=== PATIENT | female | born 1965 | race Caucasian/White ===

== ENCOUNTER 2017-07-29 21:04 | Inpatient (IN) | payer OTHER, SELFPAY ==
[2017-07-29 21:54] LABS: #Basophils 0.2 thou/uL (0.0-0.2); #Eosinphils 0.4 thou/uL (0.0-0.7); #Lymphocytes 3.5 thou/uL (1.20-3.40); #Monocytes 0.7 thou/uL (0.11-0.59); #Neutrophils 9.8 thou/uL (1.40-6.50); %Basophils 1.1 % (0.0-1.0); %Eosinophils 2.4 % (0.0-10.0); Hematocrit 36.2 % (36.0-47.0); Mean Platelet Volume 5.8 fL (7.4-10.4); Red Blood Cell (RBC) Count 3.82 mill/uL (4.20-5.40); White Blood Cell (WBC) Count 14.5 thou/uL (4.8-10.8)
[2017-07-29 22:13] LABS: ALT (SGPT) 10 U/L (8-55); AST (SGOT) 13 U/L (5-34); Alkaline Phosphatase 154 U/L (40-150); Anion Gap 15 mmol/L (10-20); BUN (Urea Nitrogen) 5 mg/dL (7.0-18.7); Bilirubin, Total 0.2 mg/dL (0.2-1.2); Calc. Creatinine Clearance 0 mL/min (70-130); Calcium 9.2 mg/dL (7.8-10.44); Carbon Dioxide 20 mmol/L (22-29); Chloride 91 mmol/L (98-107); Estimated GFR-MDRD Greater than 90; Globulin 2.7 g/dL (2.4-3.5); Magnesium 2.1 mg/dL (1.6-2.6)
--- NOTE | 2017-07-29 22:45 | RAD ---
AP PELVIS ONE VIEW: 07/29/17 HISTORY: 51-year-old female with history of fall and pelvic pain. Pedicle screws stabilize the lower lumbar spine. No evidence for acute pelvic fracture. Degenerative changes of both hip joints. IMPRESSION: Bone demineralization without acute fracture. POS: [facility]
--- NOTE | 2017-07-29 22:47 | RAD ---
UPRIGHT PORTABLE CHEST ONE VIEW: 07/29/17 HISTORY: 51-year-old female with history of chest pain following a fall. Heart size is within normal limits. T he lungs are clear of acute process. No confluent pneumonia, overt edema, or pleural effusion. No pne umothorax. IMPRESSION: No acute intrathoracic disease. No pneumothorax or pleural effusion. POS: [facility]
--- NOTE | 2017-07-29 22:49 | CT ---
BRAIN CT WITHOUT IV CONTRAST: 07/29/17 HISTORY: 51-year-old female with history of fall and head injury. COMPARISON: 03/05/17. There is atrophy and chronic white matter ischemic changes. Old stable bilateral encephalomalacic sisi nges involving the right occipital and parietal region and the left parietal regions. No focal mass o r midline shift. No intra or extra-axial hemorrhage. IMPRESSION: Stable atrophy and chronic white matter ischemic changes and old infarct/insult changes stable from . POS: [facility]
[2017-07-29] MEDS ORDERED: Ondansetron ODT 4 MG TAB ONE (23:10)
[2017-07-30] MEDS ORDERED: Labetalol HCl 100 MG/20 ML VIAL ONE (00:18)
[2017-07-30 02:09] VITALS: BMI 24.0
[2017-07-30] MEDS ORDERED: HYDROcodone/Acetaminophen 5/325 mg Tablet PO PRN (02:10)
[2017-07-30] MEDS ORDERED: Ondansetron ODT 4 MG TAB PO PRN (02:10)
[2017-07-30] MEDS ORDERED: Acetaminophen 325 MG TAB PO PRN (02:10)
[2017-07-30] MEDS ORDERED: Nicotine 14 MG PATCH TD SCH (02:10)
[2017-07-30] MEDS ORDERED: HYDROcodone/Acetaminophen 10/325 mg Tablet PO PRN (02:10)
[2017-07-30] MEDS ORDERED: hydrALAZINE 20 MG/ML VIAL SLOW IVP PRN (02:10)
[2017-07-30] MEDS: Sodium Chloride 0.9% 1,000 ML IV SCH ×2 (03:47→05:36)
[2017-07-30] MEDS: Potassium Chloride 20 MEQ TAB PO SCH ×2 (03:48→08:25)
[2017-07-30 05:27] LABS: #Basophils 0.1 thou/uL (0.0-0.2); #Eosinphils 0.4 thou/uL (0.0-0.7); #Lymphocytes 2.5 thou/uL (1.20-3.40); #Monocytes 0.6 thou/uL (0.11-0.59); #Neutrophils 6.8 thou/uL (1.40-6.50); %Eosinophils 3.6 % (0.0-10.0); %Lymphocytes 23.8 % (21.0-51.0); %Monocytes 5.4 % (0.0-10.0); Hematocrit 35.8 % (36.0-47.0); Red Blood Cell (RBC) Count 3.79 mill/uL (4.20-5.40); White Blood Cell (WBC) Count 10.3 thou/uL (4.8-10.8)
[2017-07-30 05:48] LABS: Anion Gap 13 mmol/L (10-20); BUN (Urea Nitrogen) 5 mg/dL (7.0-18.7); Calc. Creatinine Clearance 90 mL/min (70-130); Calcium 9.5 mg/dL (7.8-10.44); Carbon Dioxide 23 mmol/L (22-29); Chloride 94 mmol/L (98-107); Estimated GFR-MDRD Greater than 90; Magnesium 2.1 mg/dL (1.6-2.6)
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
[2017-07-30] MEDS: Amlodipine 5 MG TAB PO SCH (08:26)
[2017-07-30] MEDS: Clopidogrel Bisulfate 75 MG TAB PO SCH (08:26)
[2017-07-30] MEDS: levETIRAcetam 500 MG TAB PO SCH ×2 (08:26→20:58)
[2017-07-30] MEDS: Famotidine 20 MG TAB PO SCH ×2 (08:26→20:58)
[2017-07-30] MEDS: Folic Acid 1 MG TAB PO SCH (08:26)
[2017-07-30] MEDS: Cyanocobalamin (Vitamin B-12) 1,000 MCG TAB PO SCH (08:26)
[2017-07-30] MEDS: Nicotine 14 MG PATCH TD SCH (08:27)
[2017-07-30] MEDS: Zonisamide 100 MG CAP PO SCH (08:32)
[2017-07-30] MEDS ORDERED: OXTELLAR 600 MG PO SCH (09:00)
--- NOTE | 2017-07-30 10:16 | CON ---
DATE OF CONSULTATION: 07/30/2017 NEUROLOGY CONSULTATION CONSULTING PHYSICIAN: Hospitalist Service. IMPRESSION: 1. Seizure disorder with questionable control. 2. Psychiatric issues. PLAN: 1. Ativan 0.5 mg b.i.d. for anxiety. 2. Patient can be discharged home to deal with her psychiatric and neurologic issues now with her pr ary treating physicians. HISTORY OF PRESENT ILLNESS: Ms. Hart is a 51-year-old white female with a reported history of stro ke and seizure disorder. She came in reportedly as a result of a fall at home. She is a very diffic ult historian who runs off on tangents about her living situation. She reports that the seizures usu ally do not cause her any arm. She has someone that oversees her medical and financial issues. She has her home medication dispensed. She is having problems with the tenant that lives in her home and reportedly wants something done about it. PAST HISTORY: Hypertension, traumatic brain injury, stroke with right visual field deficits, COPD. MEDICATIONS: Reviewed. ALLERGIES: AMOXIL, ASPIRIN, CODEINE, DEMEROL, PENICILLIN. FAMILY HISTORY: Unremarkable. SOCIAL HISTORY: She smokes 2-3 cigarettes per day. Has no reported drug or alcohol use. REVIEW OF SYSTEMS: No other particular complaints. PHYSICAL EXAMINATION: GENERAL: She appears well-nourished, in no distress. VITAL SIGNS: Blood pressure was 197/88 and temperature was 98. HEENT: Unremarkable. EXTREMITIES: No cyanosis. NEUROLOGIC: She was alert and cooperative. Her speech is fluent and clear. Cranial nerve exam show ed subjective right visual field deficit. Motor exam showed symmetric strength without fix or drift. She had some tremor on postural extension of the hands. Sensation was intact to light touch. Gait was not tested. IMAGING DATA: CT of the brain showed evidence of old ischemic injury in the parietooccipital region bilaterally. No acute changes were noted. LABORATORY STUDIES: CBC showed white blood cell count of 14.5, hemoglobin of 12.6. Laboratory studi es showed sodium of 123, potassium 2.6. Toxicology screen showed Dilantin level of 15.5. ASSESSMENT AND PLAN: This is a 51-year-old woman with a past history of stroke, seizures and apparen t psychiatric issues. Her sodium was a bit low, which is I suspect is secondary to her oxcarbazepine . I would leave this to be dealt with by her primary neurologist. I do not see any particular acute neurologic issues.
[2017-07-30] MEDS ORDERED: Sodium Chloride 0.9% 1,000 ML IV SCH (10:30)
[2017-07-30 12:16] LABS: Anion Gap 13 mmol/L (10-20); BUN (Urea Nitrogen) 4 mg/dL (7.0-18.7); Calc. Creatinine Clearance 79 mL/min (70-130); Calcium 9.4 mg/dL (7.8-10.44); Carbon Dioxide 22 mmol/L (22-29); Chloride 102 mmol/L (98-107); Estimated GFR-MDRD 83
[2017-07-30] MEDS ORDERED: cloNIDine 0.1 MG TAB PO PRN (14:59)
--- NOTE | 2017-07-30 19:37 | PDOC.EVN ---
Event Note - Event Note Event Note: Patient seen and examined. No new complaints. No overnight events. Mentation improving. IMPRESSION: 1. Hyponatremia causing seizure/Metabolic Encephalopathy. 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 Seizure due to # 1 with probable med noncompliance 3. Hypokalemia 4. Anxiety/Depression/Bipolar disorder 5. HTN 6. h/o CVA PLAN: * Consult [facility] * DC IVF * AM labs * Neuro input appreciated * Cont home meds * Fluid rest 2 lit/day
[2017-07-30] MEDS ORDERED: Lorazepam 2 MG/ML VIAL SLOW IVP SCH (20:15)
[2017-07-30] MEDS: risperiDONE 1 MG TAB PO SCH (20:58)
[2017-07-30] MEDS ORDERED: clonazePAM 1 MG TAB PO SCH ×2 (21:00→21:30)
[2017-07-30] MEDS: clonazePAM 1 MG TAB PO SCH (21:28)
[2017-07-31 05:54] LABS: Anion Gap 11 mmol/L (10-20); BUN (Urea Nitrogen) 6 mg/dL (7.0-18.7); Calc. Creatinine Clearance 81 mL/min (70-130); Calcium 9.4 mg/dL (7.8-10.44); Carbon Dioxide 22 mmol/L (22-29); Chloride 102 mmol/L (98-107); Estimated GFR-MDRD 85; Magnesium 2.4 mg/dL (1.6-2.6); Phosphorus 3.9 mg/dL (2.3-4.7)
--- NOTE | 2017-07-31 09:06 | DIS ---
DISCHARGE DISPOSITION: Home. FOLLOWUP: Follow up with primary care physician, Dr. Martines in 1 week. Follow up with psychiatrist miguel ROTHMAN as scheduled. INPATIENT CONSULTANTS: [facility] of [facility]. The patient was seen and examined on the day of discharge. Denies any new complaints, requesting to get discharged. ALLERGIES: The patient is allergic to ASPIRIN, DEMEROL, PENICILLIN AND CODEINE. BRIEF HOSPITAL COURSE: The patient is a 51-year-old female with seizure disorder, anxiety, depressio n and bipolar disorder who presented to the hospital with recurrent seizures causing fall. No signif icant injuries were reported. She normally follows with Dr. Ortiz at [facility] for seizur es. Please refer to the history and physical dated 07/30/[address] Greenwood, for further details. The patient was admitted to the Stroke Unit with the diagnosis of seizure, probably precipitated by m edication noncompliance as well as electrolyte imbalance. Her sodium on admission was 123 with a pot assium of 2.6. She showed good improvement with IV fluids. Her sodium on the day of discharge is 13 1. Exact etiology of hyponatremia appears to be unclear. Urine osmolarity was 90 with TSH 3.19 with normal cortisol level. Her serum osmolality level was 251. Possibilities include primary polydipsi a versus dehydration. Potassium has been normalized. The patient was seen by Neurology, Dr. Crain , who recommended continuing current antiepileptic drugs. Her sodium on the day of discharge is 131 with potassium 4.4. Magnesium is also normal. She appears stable for discharge. Please note that patient was unable to get oxcarbazepine extended release due to out of formulary at our Pharmacy. She was advised to take the medicine at home. FINAL DIAGNOSES: 1. Recurrent seizures, probably precipitated by electrolyte imbalance. The patient did not have any seizure episode during this hospitalization. 2. Metabolic encephalopathy, resolved. 3. History of seizure disorder. 4. Hyponatremia, corrected. 5. Hypokalemia, corrected. 6. Anxiety, depression, bipolar disorder. 7. Hypertension. 8. History of cerebrovascular accident. DISCHARGE MEDICATIONS: Same as admission medications: Amlodipine 5 mg daily, cetirizine 10 mg daily , Klonopin 1 mg b.i.d., Plavix 75 mg daily, Keppra 1000 mg daily, oxcarbazepine extended release 1200 mg daily, Dilantin extended release 400 mg at bedtime, pravastatin 80 mg at bedtime, risperidone 1 m g b.i.d., Zonisamide 100 mg daily. Please note that Lasix has been discontinued due to hyponatremia. Plan of care was discussed with the patient in detail. She stated understanding. Total time coordinating the discharge of this patient was 37 minutes.
[2017-07-31] MEDS: Amlodipine 5 MG TAB PO SCH (10:15)
[2017-07-31] MEDS: Cyanocobalamin (Vitamin B-12) 1,000 MCG TAB PO SCH (10:15)
[2017-07-31] MEDS: Famotidine 20 MG TAB PO SCH (10:15)
[2017-07-31] MEDS: Folic Acid 1 MG TAB PO SCH (10:15)
[2017-07-31] MEDS: clonazePAM 1 MG TAB PO SCH (10:17)
[2017-07-31] MEDS: levETIRAcetam 500 MG TAB PO SCH (10:18)
[2017-07-31] MEDS: Clopidogrel Bisulfate 75 MG TAB PO SCH (10:18)
[2017-07-31] MEDS: risperiDONE 1 MG TAB PO SCH (10:19)
[2017-07-31] MEDS: Nicotine 14 MG PATCH TD SCH (11:09)
[2017-07-31] MEDS: Zonisamide 100 MG CAP PO SCH (11:10)
[2017-07-31 12:05] VITALS: BP 135/85; TEMP 97.6
== END 2017-07-31 14:44 | disposition home or self-care (01) | DRG 100 ==
LOC: ERS 21:04 → 2SE 07-30 01:35
PROVIDERS: ADMIT Internal Medicine Infectious Disease; ATTEND Internal Medicine Infectious Disease
DX: G40.909 Epilepsy, unspecified, not intractable, without status epilepticus (principal); G93.41 Metabolic encephalopathy; E87.1 Hypo-osmolality and hyponatremia; I69.354 Hemiplegia and hemiparesis following cerebral infarction affecting left non-dominant side; E87.6 Hypokalemia; F41.9 Anxiety disorder, unspecified; F32.9 Major depressive disorder, single episode, unspecified; I10 Essential (primary) hypertension; F17.210 Nicotine dependence, cigarettes, uncomplicated; J44.9 Chronic obstructive pulmonary disease, unspecified; Z91.14 Patient's other noncompliance with medication regimen; T42.1X5A Adverse effect of iminostilbenes, initial encounter; F31.9 Bipolar disorder, unspecified
CPT/HCPCS: 36415; 70450; 71010; 72170; 80048; 80053; 80185; 82533; 83735; 83930; 83935; 84100; 84443; 85025; 96374; J2060; Q0162

== ENCOUNTER 2017-09-06 23:32 | Emergency (ER) | payer SELFPAY ==
[2017-09-07 00:55] LABS: #Basophils 0.1 thou/uL (0.0-0.2); #Eosinphils 0.1 thou/uL (0.0-0.7); #Lymphocytes 2.1 thou/uL (1.20-3.40); #Monocytes 0.6 thou/uL (0.11-0.59); #Neutrophils 10.9 thou/uL (1.40-6.50); %Basophils 0.8 % (0.0-1.0); %Eosinophils 0.9 % (0.0-10.0); %Lymphocytes 15.2 % (21.0-51.0); %Monocytes 4.4 % (0.0-10.0); %Neutrophils 78.7 % (42.0-75.0); Hemoglobin 12.2 g/dL (12.0-16.0); Mean Corpuscular HGB CONC 33.6 g/dL (32.0-36.0); Mean Corpuscular Hemoglobin 32.4 pg (27.0-31.0); Mean Corpuscular Volume 96.5 fl (81.0-99.0); Mean Platelet Volume 6.7 fL (7.4-10.4); Platelet Count 170 thou/uL (130-400); Red Blood Cell (RBC) Count 3.78 mill/uL (4.20-5.40); White Blood Cell (WBC) Count 13.9 thou/uL (4.8-10.8)
[2017-09-07 01:09] LABS: BHCG - Serum Negative (NEGATIVE); Pregs Control Background? CLEAR/WHITE (CLR/WHITE); Pregs Control Bar Appear? YES (CONTROL BAR)
[2017-09-07 01:17] LABS: ALT (SGPT) 9 U/L (8-55); AST (SGOT) 13 U/L (5-34); Alkaline Phosphatase 146 U/L (40-150); Anion Gap 15 mmol/L (10-20); BUN (Urea Nitrogen) 5 mg/dL (7.0-18.7); Bilirubin, Total 0.2 mg/dL (0.2-1.2); Calc. Creatinine Clearance 0 mL/min (70-130); Calcium 8.9 mg/dL (7.8-10.44); Carbon Dioxide 24 mmol/L (22-29); Chloride 92 mmol/L (98-107); Estimated GFR-MDRD Greater than 90; Globulin 2.9 g/dL (2.4-3.5); Glucose 121 mg/dL (70-105); Potassium 3.6 mmol/L (3.5-5.1); Protein, Total 6.9 g/dL (6.0-8.3); Sodium 127 mmol/L (136-145)
[2017-09-07 01:22] LABS: CKMB 2.2 ng/mL (0-6.6); Troponin I Less than 0.010 ng/mL (< 0.028)
[2017-09-07] MEDS ORDERED: Ondansetron HCl/PF 4 MG/2 ML Vial ONE (01:58)
[2017-09-07] MEDS ORDERED: Ondansetron ODT 4 MG TAB ONE (02:13)
[2017-09-07 03:10] LABS: Pregnancy Test - Urine (BHCG) Negative (Negative); Pregu Control Background? CLEAR/WHITE (CLR/WHITE); Pregu Control Bar Appear? YES (CONTROL BAR)
[2017-09-07 03:15] LABS: Bacteria/HPF 1+ HPF (None Seen); Bilirubin Negative (Negative); Blood, Urine Negative (Negative); Clarity CLEAR (Clear); Glucose, Urine (Dipstick) Negative (Negative); Hyaline Casts/LPF 0-3 HYALINE CAST LPF (0-3 Hyaline); Leukocyte Small (Negative); Nitrite Negative (Negative); Pathc Cast-AUWi Flag 0.13 (0-2.49); Protein, Urine (Dipstick) Negative (Neg-Trace); RBC/HPF 0-3 HPF (0-3); Specific Gravity, Urine 1.007 (1.002-1.036); Squamous Epithelial 0-3 HPF (0-3); Urobilinogen 0.2 mg/dL (0.2-1.0); WBC/HPF 0-3 HPF (0-3); pH, Urine 7.5 (5.0-9.0)
[2017-09-07 03:17] LABS: Specific Gravity 1.007 (1.002-1.036)
[2017-09-07] MEDS ORDERED: ALPRAZolam 0.25 MG TAB PO SCH (04:00)
[2017-09-07] MEDS ORDERED: ALPRAZolam 0.25 MG TAB ONE (04:01)
--- NOTE | 2017-09-09 13:48 | EKG ---
Test Reason : DIZZINESS Blood Pressure : / mmHG Vent. Rate : 082 BPM Atrial Rate : 082 BPM P-R Int : 150 ms QRS Dur : 090 ms QT Int : 376 ms P-R-T Axes : 056 033 059 degrees QTc Int : 439 ms Normal sinus rhythm Possible Left atrial enlargement Nonspecific ST and T wave abnormality Abnormal ECG Confirmed by TODD TSE ([id number]), editor department JOSSELYN ACUNA ([id number]) on 09/09/2017 1:47:47 PM Referred By: VIDAL COLON Confirmed By:TODD TSE
== END 2017-09-07 04:22 | disposition home or self-care (01) ==
LOC: ERS 23:32
DX: F41.9 Anxiety disorder, unspecified (principal); J44.9 Chronic obstructive pulmonary disease, unspecified; G89.29 Other chronic pain; I10 Essential (primary) hypertension; Z86.73 Personal history of transient ischemic attack (TIA), and cerebral infarction without residual deficits; F32.9 Major depressive disorder, single episode, unspecified; F17.210 Nicotine dependence, cigarettes, uncomplicated; Z87.01 Personal history of pneumonia (recurrent); Z79.899 Other long term (current) drug therapy
CPT/HCPCS: 36415; 80053; 81003; 81015; 81025; 82553; 83880; 84484; 84703; 85025; 87086; 93005; J2405; Q0162

== ENCOUNTER 2017-09-09 05:22 | Emergency (ER) | payer SELFPAY ==
[2017-09-09 06:19] LABS: #Basophils 0.1 thou/uL (0.0-0.2); #Eosinphils 0.4 thou/uL (0.0-0.7); #Lymphocytes 3.5 thou/uL (1.20-3.40); #Monocytes 0.6 thou/uL (0.11-0.59); #Neutrophils 4.8 thou/uL (1.40-6.50); %Basophils 1.3 % (0.0-1.0); %Monocytes 5.9 % (0.0-10.0); %Neutrophils 51.8 % (42.0-75.0); Hemoglobin 12.9 g/dL (12.0-16.0); Mean Corpuscular HGB CONC 33.8 g/dL (32.0-36.0); Mean Corpuscular Hemoglobin 32.8 pg (27.0-31.0); Mean Corpuscular Volume 97.2 fl (81.0-99.0); Mean Platelet Volume 6.1 fL (7.4-10.4); Platelet Count 188 thou/uL (130-400); RBC Distribution Width 13.2 % (11.5-14.5); Red Blood Cell (RBC) Count 3.93 mill/uL (4.20-5.40); White Blood Cell (WBC) Count 9.3 thou/uL (4.8-10.8)
[2017-09-09 06:42] LABS: ALT (SGPT) 15 U/L (8-55); AST (SGOT) 15 U/L (5-34); Alkaline Phosphatase 159 U/L (40-150); Anion Gap 12 mmol/L (10-20); BUN (Urea Nitrogen) 9 mg/dL (7.0-18.7); Bilirubin, Total 0.2 mg/dL (0.2-1.2); Calc. Creatinine Clearance 0 mL/min (70-130); Calcium 8.8 mg/dL (7.8-10.44); Carbon Dioxide 23 mmol/L (22-29); Chloride 98 mmol/L (98-107); Estimated GFR-MDRD 87; Globulin 2.7 g/dL (2.4-3.5); Glucose 119 mg/dL (70-105); Potassium 3.7 mmol/L (3.5-5.1); Protein, Total 6.7 g/dL (6.0-8.3); Sodium 129 mmol/L (136-145)
[2017-09-09 07:15] LABS: Bilirubin Negative (Negative); Blood, Urine Negative (Negative); Clarity CLEAR (Clear); Glucose, Urine (Dipstick) Negative (Negative); Leukocyte Negative (Negative); Nitrite Negative (Negative); Protein, Urine (Dipstick) Negative (Neg-Trace); Specific Gravity, Urine 1.014 (1.002-1.036); Urobilinogen 0.2 mg/dL (0.2-1.0)
[2017-09-09 07:26] LABS: Amphetamine Not Detected (NotDetected); Barbiturates Screen Detected (NotDetected); Benzodiazepine Screen Not Detected (NotDetected); Cocaine Metabolite Screen Not Detected (NotDetected); Medtox Control Line Valid? VALID (VALID); Medtox Reader # READER 1; Methadone Not Detected (NotDetected); Methamphetamine Not Detected (NotDetected); Opiate Screen Not Detected (NotDetected); Oxycodone Screen Not Detected (NotDetected); Phencyclidine (PCP) Not Detected (NotDetected); THC/Cannabinoid Screen Not Detected (NotDetected); Tricyclic Screen Not Detected (NotDetected)
[2017-09-09 09:07] LABS: CKMB 1.3 ng/mL (0-6.6); Troponin I Less than 0.010 ng/mL (< 0.028)
== END 2017-09-09 10:44 | disposition left against medical advice (07) ==
LOC: ERS 05:22
DX: R42 Dizziness and giddiness (principal); G40.909 Epilepsy, unspecified, not intractable, without status epilepticus; J44.9 Chronic obstructive pulmonary disease, unspecified; I10 Essential (primary) hypertension; I69.354 Hemiplegia and hemiparesis following cerebral infarction affecting left non-dominant side; I69.398 Other sequelae of cerebral infarction; F41.9 Anxiety disorder, unspecified; F32.9 Major depressive disorder, single episode, unspecified; F17.210 Nicotine dependence, cigarettes, uncomplicated; Z71.6 Tobacco abuse counseling; W19.XXXA Unspecified fall, initial encounter; Y92.009 Unspecified place in unspecified non-institutional (private) residence as the place of occurrence of the external cause
CPT/HCPCS: 36415; 51701; 80053; 80306; 81003; 82550; 82553; 84484; 85025; 93005; 99406

== ENCOUNTER 2017-09-13 01:10 | Emergency (ER) | payer SELFPAY ==
[2017-09-13 01:47] LABS: #Basophils 0.1 thou/uL (0.0-0.2); #Eosinphils 0.4 thou/uL (0.0-0.7); #Lymphocytes 3.9 thou/uL (1.20-3.40); #Monocytes 0.6 thou/uL (0.11-0.59); #Neutrophils 5.1 thou/uL (1.40-6.50); %Basophils 1.3 % (0.0-1.0); %Eosinophils 3.8 % (0.0-10.0); %Lymphocytes 38.6 % (21.0-51.0); %Monocytes 6.4 % (0.0-10.0); Hemoglobin 12.3 g/dL (12.0-16.0); Mean Corpuscular HGB CONC 34.6 g/dL (32.0-36.0); Mean Corpuscular Hemoglobin 33.6 pg (27.0-31.0); Mean Platelet Volume 6.2 fL (7.4-10.4); Platelet Count 167 thou/uL (130-400); RBC Distribution Width 13.3 % (11.5-14.5); Red Blood Cell (RBC) Count 3.65 mill/uL (4.20-5.40); White Blood Cell (WBC) Count 10.1 thou/uL (4.8-10.8)
[2017-09-13 02:04] LABS: ALT (SGPT) 11 U/L (8-55); AST (SGOT) 10 U/L (5-34); Acetaminophen Less than 6.0 mcg/mL (10.0-30.0); Albumin 3.9 g/dL (3.5-5.0); Alcohol Less than 10 mg/dL (Less than 10); Alkaline Phosphatase 144 U/L (40-150); Anion Gap 12 mmol/L (10-20); BUN (Urea Nitrogen) 5 mg/dL (7.0-18.7); Bilirubin, Total 0.3 mg/dL (0.2-1.2); CK (CPK) 56 U/L (29-168); Calc. Creatinine Clearance 0 mL/min (70-130); Calcium 8.8 mg/dL (7.8-10.44); Carbon Dioxide 24 mmol/L (22-29); Chloride 98 mmol/L (98-107); Estimated GFR-MDRD Greater than 90; Globulin 2.4 g/dL (2.4-3.5); Glucose 112 mg/dL (70-105); Potassium 3.2 mmol/L (3.5-5.1); Protein, Total 6.3 g/dL (6.0-8.3); Salicylate Less than 8.0 mg/dL (15.0-30.0); Sodium 131 mmol/L (136-145)
[2017-09-13 02:08] LABS: CKMB 1.4 ng/mL (0-6.6); Troponin I Less than 0.010 ng/mL (< 0.028)
[2017-09-13] MEDS ORDERED: Potassium Chloride 20 MEQ TAB ONE (02:26)
== END 2017-09-13 04:00 | disposition home or self-care (01) ==
LOC: ERS 01:10
DX: R41.82 Altered mental status, unspecified (principal); F41.9 Anxiety disorder, unspecified; F32.9 Major depressive disorder, single episode, unspecified; F17.210 Nicotine dependence, cigarettes, uncomplicated; J44.9 Chronic obstructive pulmonary disease, unspecified; I10 Essential (primary) hypertension; G40.909 Epilepsy, unspecified, not intractable, without status epilepticus; Z86.73 Personal history of transient ischemic attack (TIA), and cerebral infarction without residual deficits; Z79.899 Other long term (current) drug therapy
CPT/HCPCS: 36415; 36416; 80053; 80307; 82140; 82553; 84443; 84484; 85025; 93005

== ENCOUNTER 2017-10-17 09:37 | Inpatient (IN) | payer OTHER, SELFPAY ==
[2017-10-17] MEDS ORDERED: Labetalol HCl 100 MG/20 ML VIAL ONE (09:50)
[2017-10-17 09:54] LABS: Base Excess-Venous -13.4 mmol/L (0 (+/- 2.5)); Bicarbonate (HCO3v) 16.3 mmol/L (1.0-85.0); CO2 Tension (PvCO2) 51.6 mmHg (41.0-51.0); Calcium, Ionized 1.21 mmol/L (1.12-1.32); Hemoglobin - Calc 13.7 g/dL (12.0-18.0); O2 Tension (PvO2) 69.1 mmHg (35.0-45.0); Potassium 3.5 mmol/L (3.4-4.7); T. Carbon Dioxide 17.8 mmol/L (1.0-85.0); pH (Venous) 7.107 (7.35-7.45); vO2 Saturation-calc 85.9 % (94-98)
[2017-10-17 10:05] LABS: #Basophils 0.1 thou/uL (0.0-0.2); #Eosinphils 0.4 thou/uL (0.0-0.7); #Lymphocytes 2.7 thou/uL (1.20-3.40); #Monocytes 0.6 thou/uL (0.11-0.59); #Neutrophils 11.2 thou/uL (1.40-6.50); %Basophils 0.6 % (0.0-1.0); %Eosinophils 2.4 % (0.0-10.0); %Lymphocytes 17.8 % (21.0-51.0); %Monocytes 3.7 % (0.0-10.0); %Neutrophils 75.5 % (42.0-75.0); Mean Corpuscular HGB CONC 32.3 g/dL (32.0-36.0); Mean Corpuscular Hemoglobin 31.5 pg (27.0-31.0); Mean Corpuscular Volume 97.7 fl (81.0-99.0); Mean Platelet Volume 5.6 fL (7.4-10.4); Platelet Count 253 thou/uL (130-400); RBC Distribution Width 13.2 % (11.5-14.5); White Blood Cell (WBC) Count 14.9 thou/uL (4.8-10.8)
[2017-10-17 10:13] LABS: INR-International Normal Ratio 1.1; Prothrombin Time 13.9 SEC (12.0-14.7)
[2017-10-17 10:19] LABS: Bilirubin Negative (Negative); Blood, Urine Small (Negative); Clarity CLOUDY (Clear); Glucose, Urine (Dipstick) 100 mg/dL (Negative); Leukocyte Negative (Negative); Nitrite Negative (Negative); Protein, Urine (Dipstick) 30 mg/dL (Neg-Trace); Specific Gravity, Urine 1.017 (1.002-1.036); Urobilinogen 0.2 mg/dL (0.2-1.0)
[2017-10-17 10:22] LABS: Bacteria/HPF Rare-Few HPF (None Seen); Hyaline Casts/LPF 4-6 HYALINE CAST LPF (0-3 Hyaline); Pathc Cast-AUWi Flag 0.27 (0-2.49); Squamous Epithelial 0-3 HPF (0-3); WBC/HPF 0-3 HPF (0-3)
[2017-10-17 10:31] LABS: Amphetamine Not Detected (NotDetected); Barbiturates Screen Detected (NotDetected); Benzodiazepine Screen Detected (NotDetected); Cocaine Metabolite Screen Not Detected (NotDetected); Medtox Control Line Valid? VALID (VALID); Medtox Reader # READER 1; Methadone Not Detected (NotDetected); Methamphetamine Not Detected (NotDetected); Opiate Screen Not Detected (NotDetected); Oxycodone Screen Not Detected (NotDetected); Phencyclidine (PCP) Not Detected (NotDetected); THC/Cannabinoid Screen Not Detected (NotDetected); Tricyclic Screen Not Detected (NotDetected)
[2017-10-17 10:35] LABS: Crystals/HPF 1+ AMORPH PHOS HPF (Negative); Renal Epithelial None Seen HPF (0-3); Transitional Epithelial NONE SEEN HPF (0-3)
[2017-10-17 10:36] LABS: ALT (SGPT) 50 U/L (8-55); AST (SGOT) 38 U/L (5-34); Acetaminophen Less than 6.0 mcg/mL (10.0-30.0); Albumin 4.3 g/dL (3.5-5.0); Alcohol Less than 10 mg/dL (Less than 10); Alkaline Phosphatase 148 U/L (40-150); Anion Gap 23 mmol/L (10-20); BUN (Urea Nitrogen) 10 mg/dL (7.0-18.7); Bilirubin, Total 0.2 mg/dL (0.2-1.2); CK (CPK) 92 U/L (29-168); Calc. Creatinine Clearance 0 mL/min (70-130); Calcium 9.5 mg/dL (7.8-10.44); Carbon Dioxide 15 mmol/L (22-29); Chloride 99 mmol/L (98-107); Estimated GFR-MDRD 76; Globulin 3.3 g/dL (2.4-3.5); Glucose 213 mg/dL (70-105); Magnesium 2.3 mg/dL (1.6-2.6); Potassium 3.6 mmol/L (3.5-5.1); Protein, Total 7.6 g/dL (6.0-8.3); Salicylate Less than 8.0 mg/dL (15.0-30.0); Sodium 133 mmol/L (136-145)
[2017-10-17 10:40] LABS: CKMB 1.1 ng/mL (0-6.6); Troponin I Less than 0.010 ng/mL (< 0.028)
--- NOTE | 2017-10-17 10:58 | CT ---
CT BRAIN: HISTORY: Altered mental status post subdural drain. FINDINGS: Noncontrast-enhanced CT images of the brain were obtained on 10/17/17. Comparison is made to previous exam from 07/29/17. Images demonstrate an old right occipital stroke again seen. There has been interval left-sided mult iple bertha holes in the left frontal and parietal regions. The chronic subdural hematoma has been par tially drained. Previous presurgical CT not available at this institution which clearly shows a left -sided subdural hematoma as on the previous CT from 07/29/17 this subdural collection was not present . There is mild left to right midline shift measuring approximately 4.4 mm. No acute left subdural hemorrhage is seen. Old area of left parietooccipital stroke is also seen unchanged since the previous exam. IMPRESSION: Partial drainage of the left subdural hematoma with continued mild drub-ao-inurz shift. POS: [facility]
--- NOTE | 2017-10-17 11:05 | RAD ---
CHEST 1 VIEW: History Seizure. COMPARISON: 07/29/17. FINDINGS: The cardiac silhouette is magnified and enlarged. Pulmonary vasculature is upper limits of normal. Mediastinum is midline. There is no lobar consolidation or evidence of pneumothorax. Cardiac monito r leads overlie the chest. Old left clavicular fracture is apparent. IMPRESSION: Cardiomegaly. Borderline pulmonary vascular congestion. POS: [facility]
[2017-10-17] MEDS ORDERED: Lorazepam 2 MG/ML VIAL ONE ×2 (11:31→11:43)
[2017-10-17] MEDS ORDERED: levETIRAcetam 500 MG/100 ML PREMIX BAG ONE ×2 (11:32→11:34)
[2017-10-17] MEDS ORDERED: FOSPHENYTOIN SODIUM IVPB SCH (12:00)
[2017-10-17] MEDS ORDERED: SODIUM CHLORIDE 0.9% IVPB SCH (12:00)
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
[2017-10-17 13:26] LABS: Lactic Acid 1.1 mmol/L (0.5-2.2)
[2017-10-17] MEDS ORDERED: Acetaminophen 650 MG Suppository ONE (14:00)
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
[2017-10-17] MEDS ORDERED: Sodium Chloride 0.9% 1,000 ML IV SCH ×2 (18:30→19:07)
[2017-10-17] MEDS ORDERED: Insulin Regular 300 UNITS/3 ML VIAL SC PRN (19:07)
[2017-10-17] MEDS ORDERED: Acetaminophen 650 MG Suppository PR PRN (19:07)
[2017-10-17] MEDS ORDERED: Ondansetron HCl/PF 4 MG/2 ML Vial IVP PRN (19:07)
[2017-10-17] MEDS ORDERED: CCU Electrolyte Replacement 1 EACH IVPB SCH (19:07)
[2017-10-17] MEDS ORDERED: Lacri-Lube Opth Oint 3.5 GM TUBE EA EYE PRN (19:07)
[2017-10-17] MEDS ORDERED: CCU ELECTROLYTE REPLACEMENT PROTOCOL FS PRN (19:35)
[2017-10-17] MEDS ORDERED: Potassium Phosphate 9 MMOL in Sodium Chloride 0.9% 100 ML IVPB PRN (19:35)
[2017-10-17] MEDS ORDERED: Potassium Chloride 40 MEQ in Premix Bag 1 BAG IVPB PRN (19:35)
[2017-10-17] MEDS ORDERED: Potassium Chloride 20 MEQ TAB PO PRN (19:35)
[2017-10-17] MEDS ORDERED: Potassium Phosphate 15 MMOL in Sodium Chloride 0.9% 250 ML 250 ML IV PRN (19:35)
[2017-10-17] MEDS ORDERED: Magnesium Oxide 400 MG TAB PO PRN ×2 (19:35)
[2017-10-17] MEDS ORDERED: Potassium Chloride 40 MEQ in Sodium Chloride 0.9% 250 ML 250 ML IVPB PRN (19:35)
[2017-10-17] MEDS ORDERED: Potassium Phosphate 12 MMOL in Sodium Chloride 0.9% 250 ML 250 ML IV PRN (19:35)
[2017-10-17] MEDS ORDERED: Magnesium 2 GM/NS 0.9% 100 ML 2 GM in Premix Bag 1 BAG IVPB PRN (19:35)
[2017-10-17] MEDS: Cefepime 2 GM in Sodium Chloride 0.9% 100 ML IVPB SCH (20:03)
[2017-10-17] MEDS: Sodium Chloride 0.9% 1,000 ML IV SCH (20:04)
[2017-10-17] MEDS ORDERED: Fosphenytoin Sodium 100 MG in Sodium Chloride 0.9% 50 ML IVPB SCH (21:00)
[2017-10-17] MEDS ORDERED: Famotidine/PF 20 mg/2ml Vial SLOW IVP SCH (21:00)
[2017-10-17] MEDS ORDERED: levETIRAcetam 1,250 MG in Sodium Chloride 0.9% 100 ML IVPB SCH (21:00)
[2017-10-17] MEDS ORDERED: levETIRAcetam 500 MG TAB PO SCH (21:00)
[2017-10-17] MEDS ORDERED: Famotidine 40 MG/4 ML VIAL SLOW IVP SCH (21:45)
[2017-10-17] MEDS: Vancomycin HCl 1.5 GM in Sodium Chloride 0.9% 250 ML 300 ML IVPB SCH (21:46)
--- NOTE | 2017-10-18 01:33 | CON ---
DATE OF CONSULTATION: 10/17/2017 REFERRING PROVIDER: Dr. Crystal Mccray. REASON FOR CONSULTATION: Seizure. HISTORY OF PRESENT ILLNESS: Ms. Hart is a 51-year-old female who has been consulted for evaluation of seizure. History is obtained from the patient's dictated H and P note as the patient i s unable to provide and there are no family member present at bedside. Apparently, the patient has h istory of stroke and seizure and had multiple admissions to the [facility]. She apparently had a subdural hematoma about 6 days ago for which she was admitted to [facility] she had a CRIMINAL LEGAL ASSISTANT shunt placement. She was discharged home on last night from the hospital. She was no rmal at that time. Grandmother told the admitting physician that she may have had [address] home from hospital. She was then found on the ground seizing this morning by her roommate. The patient had 5 seizures while in the ER. She was given Ativan and Versed in the ER and since then sh leonid has been very lethargic and drowsy. PAST MEDICAL HISTORY: Could not be obtained. PAST SURGICAL HISTORY: Could not be obtained. SOCIAL HISTORY: Could not be obtained. FAMILY HISTORY: Could not be obtained. CURRENT MEDICATIONS: Please review MAR. ALLERGIES: Include ASPIRIN, MEPERIDINE, AMOXICILLIN, PENICILLIN, and CODEINE. REVIEW OF SYSTEMS: Unable to perform. PHYSICAL EXAMINATION: VITAL SIGNS: Blood pressure of 164/69, pulse of 81, temperature of 98.5, respirations of 14, O2 sats of 97% on room air. GENERAL: Drowsy appearing female, in no apparent distress. RESPIRATORY: Clear to auscultation bilaterally. CARDIOVASCULAR: Regular rate and rhythm. NEUROLOGIC: Mental status: The patient is drowsy appearing. She does open her eyes to verbal stimu li; however, does not follow any commands. She is able to stare me; however, does not converse or fo llow any commands. Speech and language: Nonconversant. Cranial nerves: Pupils are 3 mm and reacti ve. Visual dixon are full to threat. Face appears symmetric. Motor exam showed increased tone of both upper and lower extremities, more so on the right than the left. She is able to withdraw to nox ious stimuli in both upper and lower extremities. Deep tendon reflexes, very brisk reflexes in both upper and lower extremities. Coordination: Gait and Romberg could not be tested. LABORATORY DATA: Reviewed, which included CBC, CMP, urinalysis, urine drug screen, which is signific ant for WBC of 14.9. Sodium of 133, glucose of 213, lactic acid of 9.8, AST of 38, otherwise unremar kable. IMAGING STUDIES: CT head without contrast was reviewed, which showed partial drainage of the left kirk bdural hematoma with continued mild left to right shift. There is also encephalomalacia involving th e right DEPENDENCY CASE MANAGER distribution as well as the left DEPENDENCY CASE MANAGER. IMPRESSION: 1. Status epilepticus. 2. Subdural hematoma. 3. Prior right posterior cerebral artery distribution ischemic infarct. Ms. Hart is a pleasant 51-year-old female, presented with the recurrent multiple seizures in the [facility] epileptic. Currently, she is drowsy appearing from medications. At this time, I would recomm end increasing her Keppra to 1500 mg b.i.d. If she has another seizure, I may add Dilantin 100 mg t. i.d. for seizures, continue close monitoring for neurological changes. I would avoid performing lumb ar puncture as she does have subdural hematoma with left to right midline shift. Thank you for consultation.
[2017-10-18] MEDS: Sodium Chloride 0.9% 1,000 ML IV SCH ×2 (01:59→20:58)
[2017-10-18] MEDS: Cefepime 2 GM in Sodium Chloride 0.9% 100 ML IVPB SCH ×2 (04:31→12:30)
[2017-10-18 05:10] LABS: Hemoglobin 10.3 g/dL (12.0-16.0); Mean Corpuscular HGB CONC 33.8 g/dL (32.0-36.0); Mean Corpuscular Hemoglobin 32.2 pg (27.0-31.0); Mean Corpuscular Volume 95.1 fl (81.0-99.0); Mean Platelet Volume 5.9 fL (7.4-10.4); Platelet Count 199 thou/uL (130-400); RBC Distribution Width 13.2 % (11.5-14.5); White Blood Cell (WBC) Count 10.7 thou/uL (4.8-10.8)
[2017-10-18 05:11] LABS: Band 1 % (5-11); Eosinophils 9 % (0-10); Lymphocytes 16 % (21-51); MDiff Complete? YES; Monocytes 7 % (0-10); Neutrophil 67 % (42-75); PLT Morphology Comment Appears Adequate
[2017-10-18 05:24] LABS: ALT (SGPT) 33 U/L (8-55); AST (SGOT) 18 U/L (5-34); Albumin 3.6 g/dL (3.5-5.0); Alkaline Phosphatase 116 U/L (40-150); Anion Gap 11 mmol/L (10-20); BUN (Urea Nitrogen) 5 mg/dL (7.0-18.7); Bilirubin, Total 0.3 mg/dL (0.2-1.2); Calc. Creatinine Clearance 96 mL/min (70-130); Calcium 8.9 mg/dL (7.8-10.44); Carbon Dioxide 22 mmol/L (22-29); Chloride 104 mmol/L (98-107); Estimated GFR-MDRD Greater than 90; Globulin 2.6 g/dL (2.4-3.5); Glucose 116 mg/dL (70-105); Magnesium 2.1 mg/dL (1.6-2.6); Potassium 3.4 mmol/L (3.5-5.1); Protein, Total 6.2 g/dL (6.0-8.3); Sodium 134 mmol/L (136-145)
[2017-10-18] MEDS ORDERED: Sodium Chloride 0.9% 1,000 ML IV SCH (06:53)
[2017-10-18] MEDS ORDERED: Potassium Chloride 20 MEQ TAB PO SCH (07:00)
[2017-10-18] MEDS ORDERED: Potassium Chloride 40 MEQ in Premix Bag 1 BAG IVPB SCH (07:00)
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
[2017-10-18] MEDS ORDERED: Potassium Chloride 40 MEQ, Admixture Fee 1 EACH in Sodium Chloride 0.9% 250 ML 250 ML IVPB SCH ×2 (08:30→09:00)
--- NOTE | 2017-10-18 08:43 | PDOC.FM ---
- Subjective Subjective: Patient found sitting in bed. Nursing report no issues overnight, including no fever or seizure activity. Patient unable to provide history. - Objective MAR Reviewed: Yes Vital Signs & Weight: Vital Signs (12 hours) Temp 10/18/17 07:35 98.4 F 10/18/17 04:00 98.3 F 10/18/17 00:00 98.3 F Weight Weight 51.5 kg Most Recent Monitor Data Heart Rate from ECG 83 NIBP 183/94 NIBP BP-Mean 151 Respiration from ECG 16 SpO2 96 I&O: 10/17/17 10/18/17 10/19/17 06:59 06:59 06:59 Intake Total 2034 Balance 2034 Result Diagrams: 10/18/17 04:21 10/18/17 04:21 <Salvatore Harry - Last Filed: 10/18/17 11:34> - Objective Vital Signs & Weight: Vital Signs (12 hours) Temp Pulse BP 10/18/17 09:30 79 199/89 H 10/18/17 07:35 98.4 F 10/18/17 04:00 98.3 F 10/18/17 00:00 98.3 F Weight Weight 51.5 kg Most Recent Monitor Data Heart Rate from ECG 78 NIBP 169/87 NIBP BP-Mean 121 Respiration from ECG 14 SpO2 98 I&O: 10/17/17 10/18/17 10/19/17 06:59 06:59 06:59 Intake Total 2034 260 Balance 2034 260 Result Diagrams: 10/18/17 04:21 10/18/17 04:21 <Jonnathan Gamez - Last Filed: 10/18/17 11:40> Phys Exam - Physical Examination Constitutional: NAD HEENT: moist MMs, sclera anicteric PERRL Neck: no nodes, supple Respiratory: no wheezing, no rales, no rhonchi, clear to auscultation bilateral Cardiovascular: RRR, no significant murmur Gastrointestinal: soft, non-tender Musculoskeletal: no edema Neurological: moves all 4 limbs Can speak clearly but words are inappropriate. Unable to follow command Normal tone, no apparent seizure. Lymphatic: no nodes Deviation from normal: AO x0, affect odd Skin: no rash <Salvatore Harry M - Last Filed: 10/18/17 11:34> Dx/Plan (1) Status epilepticus Code(s): G40.901 - EPILEPSY, UNSP, NOT INTRACTABLE, WITH STATUS EPILEPTICUS Status: Acute Plan: There has been no seizure activity overnight per nursing. Patient is awake, has spontaneous purposeful movement. She is not at her mental baseline based on family report yesterday, who says she can hold a reasonable conversation and take care of herself with assistance Concern she may have non-convulsive seizure, neurology consulted who plan to do EEG. Appreciate specialist recs. Will continue to follow up with them. (2) SIRS (systemic inflammatory response syndrome) Code(s): R65.10 - SIRS OF NON-INFECTIOUS ORIGIN W/O ACUTE ORGAN DYSFUNCTION Status: Acute Plan: This appears to have resolved Dx includes meningitis vs SIRS from status epilepticus No fever overnight, moving neck without stiffness in room, wbc normalized. Will continue abx at this time to cover for meningitis. . (3) Lactic acidosis Code(s): E87.2 - ACIDOSIS Status: Acute Plan: Trended down, two normal lactic acids since the initial elevation. (4) Hypertensive urgency Code(s): I16.0 - HYPERTENSIVE URGENCY Status: Acute Plan: BP is still running from high-normal to elevated Restart home medication of amlodipine. Consider adding small dose of lisinopril with titration. <Salvatore Harry - Last Filed: 10/18/17 11:34> Attending Addendum - Attending Addendum Date/Time: 10/18/17 9708 I personally evaluated the patient and discussed the management with Dr. Harry. I agree with and repeated the History, Examination, Assessment and Plan documented above with any addition or exceptions noted below. Pt with seizure activity just prior to my exam. Just given additional medication. She is gazing upward, not following commands or talking, but moves all extremities and no rhythmic movements A/P: Status epilepticus in setting of recent SDH evacuation, stable post op changes, and history of ETOH abuse -c/f NCSE vs functional -will discuss with neuro, EEG scheduled at 1 pm -thiamin/folate -BZD prn -remain in ICU pending further evaluation <Jonnathan Gamez - Last Filed: 10/18/17 11:40>
[2017-10-18] MEDS ORDERED: FLU VACC QS2017-18 36 mo. & older 0.5 ML SYRINGE IM ONE (09:00)
[2017-10-18] MEDS: levETIRAcetam In NaCl (Iso-Os) 1,500 MG in Premix Bag 1 BAG IVPB SCH ×4 (09:29→20:59)
[2017-10-18] MEDS: Labetalol HCl 100 MG/20 ML VIAL SLOW IVP PRN ×2 (09:30→13:16)
[2017-10-18] MEDS: Famotidine 40 MG/4 ML VIAL SLOW IVP SCH ×2 (09:30→20:59)
[2017-10-18] MEDS: Vancomycin HCl 1.5 GM in Sodium Chloride 0.9% 250 ML 300 ML IVPB SCH ×2 (09:46→20:59)
[2017-10-18] MEDS ORDERED: Ziprasidone 20 MG VIAL IM PRN (14:54)
[2017-10-18] MEDS ORDERED: Sterile Water 10 ML VIAL FS PRN (15:04)
[2017-10-18] MEDS: hydrALAZINE 20 MG/ML VIAL SLOW IVP PRN (15:13)
[2017-10-18] MEDS: Multivitamins, Adult 10 ML, Folic Acid 1 MG, Thiamine HCl 100 MG in Dextrose 5 %-0.45 %... IV SCH ×4 (15:23)
[2017-10-18] MEDS ORDERED: Sterile Water 10 ML VIAL FS SCH (17:30)
[2017-10-18] MEDS ORDERED: OLANZapine 10 MG VIAL IM SCH (17:30)
[2017-10-18] MEDS: Lorazepam 2 MG/ML VIAL SLOW IVP PRN (19:30)
[2017-10-18] MEDS: Cefepime 2 GM, Syringe 2.5 ML in Sodium Chloride 0.9% 10 ML SLOW IVP SCH (20:07)
[2017-10-18] MEDS ORDERED: Enoxaparin Sodium 40 MG/0.4 ML SYRINGE SC SCH (21:00)
[2017-10-19] MEDS: Cefepime 2 GM, Syringe 2.5 ML in Sodium Chloride 0.9% 10 ML SLOW IVP SCH ×3 (04:02→20:10)
[2017-10-19] MEDS: Sodium Chloride 0.9% 1,000 ML IV SCH ×2 (04:06→17:23)
[2017-10-19 04:55] LABS: ALT (SGPT) 32 U/L (8-55); AST (SGOT) 19 U/L (5-34); Alkaline Phosphatase 132 U/L (40-150); Anion Gap 15 mmol/L (10-20); BUN (Urea Nitrogen) 6 mg/dL (7.0-18.7); Bilirubin, Total 0.4 mg/dL (0.2-1.2); Calc. Creatinine Clearance 78 mL/min (70-130); Calcium 9.5 mg/dL (7.8-10.44); Carbon Dioxide 21 mmol/L (22-29); Chloride 106 mmol/L (98-107); Estimated GFR-MDRD 87; Globulin 2.8 g/dL (2.4-3.5); Glucose 107 mg/dL (70-105); Potassium 3.5 mmol/L (3.5-5.1); Protein, Total 6.8 g/dL (6.0-8.3); Sodium 138 mmol/L (136-145)
[2017-10-19 05:03] LABS: Band 2 % (5-11); Eosinophils 5 % (0-10); Hemoglobin 10.9 g/dL (12.0-16.0); Lymphocytes 27 % (21-51); MDiff Complete? YES; Mean Corpuscular HGB CONC 33.8 g/dL (32.0-36.0); Mean Corpuscular Hemoglobin 31.9 pg (27.0-31.0); Mean Corpuscular Volume 94.3 fl (81.0-99.0); Mean Platelet Volume 5.8 fL (7.4-10.4); Monocytes 5 % (0-10); Neutrophil 61 % (42-75); Platelet Count 201 thou/uL (130-400); RBC Distribution Width 13.1 % (11.5-14.5); Red Blood Cell (RBC) Count 3.43 mill/uL (4.20-5.40); White Blood Cell (WBC) Count 11.4 thou/uL (4.8-10.8)
--- NOTE | 2017-10-19 07:24 | PRG ---
DATE OF SERVICE: 10/19/2017 I stopped by Ms. Hart's ICU room this morning. Neurology attempted an EEG yesterday. There was si gnificant motion artifact. It is unclear whether they got an accurate recording. She has not had a generalized tonic clonic seizure overnight. She may have had some faint twitching. When I am seeing her this morning on examination, she opens her eyes. She catches my gaze. She says a few words to me. She is clearly not as alert and interactive as she was at [facility] both before a nd after her bertha hole evacuation of subdural hematoma. Her white blood cell count is down to 11.4. Her sodium is 138. I think Ms. Hart is either having seizures or pseudoseizures. Continuous EEG monitoring will be he lpful to sort that out. Her CT scan done here showed improvement in her subdural hematoma compared t o her preoperative CT scan. Her brain is a propensity to have seizures and surgical intervention wou ld likely have worsened that, unfortunately her primary neurologist did not visit her in the hospital at [facility] and rather wanted an outpatient appointment. We will continue to follow her whil e she is here. She so far does not require any further neurosurgical intervention.
[2017-10-19] MEDS: levETIRAcetam In NaCl (Iso-Os) 1,500 MG in Premix Bag 1 BAG IVPB SCH ×4 (08:31→20:10)
[2017-10-19 09:12] LABS: Vancomycin, Trough 22.3 ug/mL
[2017-10-19] MEDS: Vancomycin HCl 1.5 GM in Sodium Chloride 0.9% 250 ML 300 ML IVPB SCH ×2 (09:13→21:47)
[2017-10-19] MEDS: Labetalol HCl 100 MG/20 ML VIAL SLOW IVP PRN (09:19)
[2017-10-19] MEDS: Famotidine 40 MG/4 ML VIAL SLOW IVP SCH ×2 (10:01→20:10)
--- NOTE | 2017-10-19 10:28 | PDOC.FM ---
- Subjective Subjective: Overnight, patient had possible seizure like activity described as "tongue twisting"> It resolved after ativan was given. There was no other overnight event though nursing state patient most of time doesn't talk but occasionally has purposeful response such as as telling them to stop when taking her temperature and while doing physical exam. - Objective MAR Reviewed: Yes Vital Signs & Weight: Vital Signs (12 hours) Temp Pulse BP 10/19/17 09:19 80 181/106 H 10/19/17 08:00 98.2 F 10/19/17 04:00 98.8 F 10/19/17 00:00 98.9 F Weight Weight 52.1 kg Most Recent Monitor Data Heart Rate from ECG 74 NIBP 169/72 NIBP BP-Mean 99 Respiration from ECG 13 SpO2 100 I&O: 10/18/17 10/19/17 10/20/17 06:59 06:59 06:59 Intake Total 2034 2840 Output Total 1 Balance 2034 2840 -1 Result Diagrams: 10/19/17 03:55 10/19/17 03:55 <Salvatore Harry - Last Filed: 10/19/17 10:27> - Objective Vital Signs & Weight: Vital Signs (12 hours) Temp Pulse Resp BP Pulse Ox 10/19/17 09:19 80 181/106 H 10/19/17 08:00 98.2 F 80 14 100 10/19/17 04:00 98.8 F 10/19/17 00:00 98.9 F Weight Weight 52.1 kg Most Recent Monitor Data Heart Rate from ECG 80 NIBP 164/82 NIBP BP-Mean 95 Respiration from ECG 14 SpO2 100 I&O: 10/18/17 10/19/17 10/20/17 06:59 06:59 06:59 Intake Total 2034 2840 Output Total 1 Balance 2034 2840 -1 Result Diagrams: 10/19/17 03:55 10/19/17 03:55 <Jonnathan Gamez - Last Filed: 10/19/17 11:37> Phys Exam - Physical Examination Constitutional: NAD HEENT: moist MMs Neck: supple Respiratory: no wheezing Cardiovascular: RRR, no significant murmur Gastrointestinal: soft, non-tender Musculoskeletal: no edema Neurological: moves all 4 limbs Moves all limb purposefully, but not to command. Eye open spont, She has goal directed speech when she is disturbed Lymphatic: no nodes Deviation from normal: AO x0, but possibly because she doesn't desire to speak Skin: no rash <Salvatore Harry Seth - Last Filed: 10/19/17 10:27> Dx/Plan (1) Status epilepticus Code(s): G40.901 - EPILEPSY, UNSP, NOT INTRACTABLE, WITH STATUS EPILEPTICUS Status: Acute Plan: EEG was poor quality due to patient movement. Neurology said they did not see any seizure like activity. She may possibly have ongoing seizure. Neurosurgery and Critical Care feels that pseudoseizure should be considered as well. (2) SIRS (systemic inflammatory response syndrome) Code(s): R65.10 - SIRS OF NON-INFECTIOUS ORIGIN W/O ACUTE ORGAN DYSFUNCTION Status: Acute Plan: This appears to have resolved. May possibly from seizure activty Will continue abx at this time to cover for meningitis. . (3) Lactic acidosis Code(s): E87.2 - ACIDOSIS Status: Acute Plan: Trended down, two normal lactic acids since the initial elevation. (4) Hypertensive urgency Code(s): I16.0 - HYPERTENSIVE URGENCY Status: Acute Plan: BP is still running from high-normal to elevated Currently on hydralazine and labatelol prn as patient is unable to swallow per speech recs. <KamrynSalvatore Seth - Last Filed: 10/19/17 10:27> Attending Addendum - Attending Addendum Date/Time: 10/19/17 1136 I personally evaluated the patient and discussed the management with Dr. Harry. I agree with and repeated the History, Examination, Assessment and Plan documented above with any addition or exceptions noted below. [id number]-[id number] at bedside. Pt still not communicative but makes eye contact and intermittent follows commands. No obvious neuro deficits as MAEW. Agree with differential listed in other notes. Neuro, cc/p, and neurosx following. Continue antiepileptics. Low suspicion for infection. Ok to transfer to floor with sitter. <Jonnathan Gamez - Last Filed: 10/19/17 11:37>
[2017-10-19] MEDS ORDERED: Potassium Chloride 40 MEQ in Sodium Chloride 0.9% 250 ML 250 ML IVPB SCH (11:00)
--- NOTE | 2017-10-19 13:01 | PRG ---
DATE OF SERVICE: 10/19/2017 SERVICE: Pulmonary Medicine. INTERVAL HISTORY: The patient is doing fine from a respiratory standpoint. She is protecting her ai rway. She has no complaints of fevers, chills, nausea or vomiting. She is still a little bit and ap propriate. She does not answer correctly with any questions. Her vocabulary; however, is making mor e sense. She just continues to have some degree of word salad. She had an EEG yesterday which demon strated no significant evidence of ongoing seizure activity despite her quirkiness. PHYSICAL EXAMINATION: VITAL SIGNS: Afebrile, pulse 80, blood pressure 169/72, respirations 13, saturation 100% on room air . GENERAL: The patient is awake, alert, in no apparent distress. LUNGS: Decent air entry. There is no prolonged expiratory phase. There is no wheezing, rhonchi, or crackles present. HEART: Normal rate and regular. ABDOMEN: Soft, nontender, nondistended. Bowel sounds are positive. MUSCULOSKELETAL: No cyanosis or clubbing. No pitting in the bilateral lower extremities. NEUROLOGIC: Grossly nonfocal. She is moving all 4 extremities, though she is not really following c ommands. She does not answer appropriately. She clearly has purposeful activity, and is protecting her airway comfortably. LABORATORY DATA: WBC 11.4, hemoglobin 10.9, platelets 201,000. Neutrophil count is normal. INR 1.2 . Basic metabolic profile and liver function studies are essentially unremarkable. Vancomycin troug h is 22.3. Blood cultures x4 negative, urine culture is negative. ASSESSMENT: 1. Status epilepticus, resolved. 2. 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 3. Subdural hematoma. 4. Right PROPELLER ENGINEER distribution ischemic infarct. 5. Polysubstance drug abuse. 6. Hypokalemia, improved. PLAN: We will give her more potassium today. From my perspective, she is stable for transition out of the ICU to the regular stroke unit. She is clearly protecting her airway, but if her neurologic c ondition changes, please give me a phone call.
[2017-10-19] MEDS: Multivitamins, Adult 10 ML, Folic Acid 1 MG, Thiamine HCl 100 MG in Dextrose 5 %-0.45 %... IV SCH ×4 (17:23)
--- NOTE | 2017-10-19 18:43 | PRG ---
DATE OF SERVICE: 10/19/2017 SUBJECTIVE: Ms. Hart is a pleasant 51-year-old female who presented with the status epil epticus. She has a prior history of stroke, seizure disorder and recent bilateral subdural hematoma, status post evacuation. She has not had any seizure over the past 24 hours according to the nurse. She has been nonverbal since being transferred to the stroke unit. She is not following commands. There were episodes of agitation yesterday for which Zyprexa had to be given. PHYSICAL EXAMINATION: VITAL SIGNS: Blood pressure of 178/86, pulse of 80, temperature of 98.2, respirations of 18, O2 sats 98% on room air. GENERAL: Well-developed, well-nourished female resting in bed, in no apparent distress. RESPIRATORY: Clear to auscultation bilaterally. CARDIOVASCULAR: Regular rate and rhythm. NEUROLOGIC: Mental status: The patient is awake, alert, but nonverbal. She does not follow any com mands. She is able to track me around the room. When I call her name, she is able to look toward me . I was only able to get her to say yes on one occasion after multiple attempts to question her. Peña jaquez did not follow any commands throughout the examination. Pupils are 3 mm and reactive. She blinks to threat on both sides. Motor exam showed normal tone and bulk. She was able to hold her arms up a fter I let go for a few seconds before gently putting them back onto the bed. She did respond to nox ious stimuli in both upper and lower extremities. LABORATORY DATA: Reviewed, which included CBC, CMP, which is significant for white cell count of 11. 4, hemoglobin 10.9, hematocrit 32.3, otherwise unremarkable. EEG was reviewed, which is extremely po or quality and it did not show any meaningful data and she was moving around too much. IMPRESSION: 1. Status epilepticus, now improved. 2. Bilateral recent subdural hematoma, status post evacuation. 3. Psychosis. Ms. Hart is a 51-year-old female with a prior history of stroke, seizures, history of psy chosis and recent subdural hematoma associated with the status epilepticus. She has not had any seiz ure since being entered into the hospital. I do not think she is in subclinical status. In my opini on, her ongoing being nonverbal and not following commands is probably part of the psychosis. Contin ue current medical management. Thank you for consultation.
[2017-10-20] MEDS: Sodium Chloride 0.9% 1,000 ML IV SCH ×3 (00:29→20:41)
[2017-10-20] MEDS: Cefepime 2 GM, Syringe 2.5 ML in Sodium Chloride 0.9% 10 ML SLOW IVP SCH (04:37)
[2017-10-20 07:05] LABS: #Basophils 0.1 thou/uL (0.0-0.2); #Eosinphils 0.5 thou/uL (0.0-0.7); #Lymphocytes 2.3 thou/uL (1.20-3.40); #Monocytes 0.7 thou/uL (0.11-0.59); %Basophils 0.9 % (0.0-1.0); %Eosinophils 5.1 % (0.0-10.0); %Monocytes 6.7 % (0.0-10.0); %Neutrophils 65.3 % (42.0-75.0); Hemoglobin 10.9 g/dL (12.0-16.0); Mean Corpuscular HGB CONC 33.2 g/dL (32.0-36.0); Mean Corpuscular Hemoglobin 32.3 pg (27.0-31.0); Mean Corpuscular Volume 97.2 fl (81.0-99.0); Mean Platelet Volume 5.9 fL (7.4-10.4); Platelet Count 198 thou/uL (130-400); RBC Distribution Width 13.2 % (11.5-14.5); Red Blood Cell (RBC) Count 3.38 mill/uL (4.20-5.40); White Blood Cell (WBC) Count 10.7 thou/uL (4.8-10.8)
--- NOTE | 2017-10-20 07:11 | PRG ---
DATE OF SERVICE: 10/20/2017 I am seeing Ms. Hart in her hospital room this morning. She is out of the ICU. She has a sitter a t bedside. When I walked in the room, she looks at me, she gives me a face that would indicate she r ecognizes me, but she blinks and stares in my direction. She does follow me with her eyes around the room and she is purposeful with all 4 extremities. The continued blinking during her visit did not cease, however. When I feel Ms. Hart's skin she is diaphoretic. No fevers are recorded. White blood cell count ye sterday was 11.4 thousand. Sodium yesterday was 138. I am not sure if Ms. Hart is having seizures, pseudoseizures or delirium or encephalopathy from ano ther cause. Her subdural hematoma is much smaller than it was before her operation and she was not b ehaving this way in the postoperative days at the [facility]. I am going to get anothe r white blood cell count. If we have a recorded fever she could have blood cultures and urine cultur es again. Ideally we could get continuous EEG monitoring to sort out whether her episodes are truly epileptic or not. If there is seizure activity coming from the left hemisphere, a repeat operation c ould be considered, but I am not particularly suspicious of that being a problem.
[2017-10-20 07:23] LABS: Anion Gap 13 mmol/L (10-20); BUN (Urea Nitrogen) 5 mg/dL (7.0-18.7); Calc. Creatinine Clearance 80 mL/min (70-130); Calcium 8.9 mg/dL (7.8-10.44); Carbon Dioxide 19 mmol/L (22-29); Chloride 107 mmol/L (98-107); Estimated GFR-MDRD Greater than 90; Glucose 109 mg/dL (70-105); Potassium 3.5 mmol/L (3.5-5.1); Sodium 135 mmol/L (136-145)
[2017-10-20] MEDS: levETIRAcetam In NaCl (Iso-Os) 1,500 MG in Premix Bag 1 BAG IVPB SCH ×4 (08:41→20:39)
[2017-10-20] MEDS: Labetalol HCl 100 MG/20 ML VIAL SLOW IVP PRN ×2 (08:43→11:58)
[2017-10-20] MEDS: Famotidine 40 MG/4 ML VIAL SLOW IVP SCH (09:20)
[2017-10-20] MEDS: Vancomycin HCl 1.5 GM in Sodium Chloride 0.9% 250 ML 300 ML IVPB SCH (09:53)
--- NOTE | 2017-10-20 09:53 | PDOC.FM ---
- Subjective Subjective: Found with step mother and sitter. She is watching tv and smiles in response to some question. She was noted to have a rhythmic movement in right hand but pulled away from nailbed pressure and said ouch. - Objective MAR Reviewed: Yes Vital Signs & Weight: Vital Signs (12 hours) Temp Pulse Resp BP BP Pulse Ox 10/20/17 08:43 97 207/88 H 10/20/17 04:35 99.1 F 88 18 159/82 H 97 10/20/17 00:28 97.6 F 100 20 178/64 H 96 Weight Weight 45.359 kg Most Recent Monitor Data Heart Rate from ECG 81 NIBP 169/78 NIBP BP-Mean 133 Respiration from ECG 13 SpO2 100 I&O: 10/19/17 10/20/17 10/21/17 06:59 06:59 06:59 Intake Total 2840 877 Output Total 3 Balance 2840 874 Result Diagrams: 10/20/17 06:56 10/20/17 06:56 <Salvatore Harry - Last Filed: 10/20/17 09:16> - Objective Vital Signs & Weight: Vital Signs (12 hours) Temp Pulse Resp BP BP Pulse Ox 10/20/17 09:23 82 183/90 H 10/20/17 08:43 97 207/88 H 10/20/17 08:00 98.8 F 82 18 94 L 10/20/17 04:35 99.1 F 88 18 159/82 H 97 10/20/17 00:28 97.6 F 100 20 178/64 H 96 Weight Weight 45.359 kg Most Recent Monitor Data Heart Rate from ECG 81 NIBP 169/78 NIBP BP-Mean 133 Respiration from ECG 13 SpO2 100 I&O: 10/19/17 10/20/17 10/21/17 06:59 06:59 06:59 Intake Total 2840 877 Output Total 3 Balance 2840 874 Result Diagrams: 10/20/17 06:56 10/20/17 06:56 <Jonnathan Gamez - Last Filed: 10/20/17 10:18> Phys Exam - Physical Examination Constitutional: NAD HEENT: moist MMs Neck: no nodes Respiratory: no wheezing, no rales, no rhonchi, clear to auscultation bilateral Cardiovascular: RRR, no significant murmur Gastrointestinal: soft, non-tender, no distention Musculoskeletal: no edema AO x0 Lymphatic: no nodes Deviation from normal: Occasionally smile, responds to threat, but non verbal otherwise Skin: no rash <Salvatore Harry Seth - Last Filed: 10/20/17 09:16> Dx/Plan (1) Status epilepticus Code(s): G40.901 - EPILEPSY, UNSP, NOT INTRACTABLE, WITH STATUS EPILEPTICUS Status: Acute Plan: EEG was poor quality due to patient movement. Another EEG is planned today. Neurology said they did not see any seizure like activity. She may possibly have ongoing seizure. Neurosurgery and Critical Care feels that pseudoseizure should be considered as well. WBC is normal today and she's afrebrile. (2) SIRS (systemic inflammatory response syndrome) Code(s): R65.10 - SIRS OF NON-INFECTIOUS ORIGIN W/O ACUTE ORGAN DYSFUNCTION Status: Acute Plan: This appears to have resolved. May possibly from seizure activty Will continue abx at this time to cover for meningitis. . (3) Lactic acidosis Code(s): E87.2 - ACIDOSIS Status: Acute Plan: Trended down, two normal lactic acids since the initial elevation. (4) Hypertensive urgency Code(s): I16.0 - HYPERTENSIVE URGENCY Status: Acute Plan: BP is still running from high-normal to elevated Currently on hydralazine and labatelol prn as patient is unable to swallow per speech recs. - Plan Plan: Will continue to monitor as patient is more interactive today. Will follow up on specialist recs. Consider psych issues mixed with neurological issues. <Salvatore Harry Seth - Last Filed: 10/20/17 09:16> Attending Addendum - Attending Addendum Date/Time: 10/20/17 1017 I personally evaluated the patient and discussed the management with Dr. Harry. I agree with and repeated the History, Examination, Assessment and Plan documented above with any addition or exceptions noted below. Pt more responsive today. Follows commands for me. D/c antibiotics. Schedule labetalol until cleared by speech. Continue AEDs. Check ammonia in AM. May schedule antipsychotic. <Jonnathan Gamez - Last Filed: 10/20/17 10:18>
[2017-10-20] MEDS: Multivitamins, Adult 10 ML, Folic Acid 1 MG, Thiamine HCl 100 MG in Dextrose 5 %-0.45 %... IV SCH ×4 (16:27)
[2017-10-20] MEDS: Famotidine 20 MG TAB PO SCH (20:39)
[2017-10-21] MEDS: Labetalol HCl 100 MG/20 ML VIAL SLOW IVP PRN ×2 (00:03→04:45)
[2017-10-21] MEDS: Sodium Chloride 0.9% 1,000 ML IV SCH ×3 (01:56→23:59)
[2017-10-21] MEDS: levETIRAcetam In NaCl (Iso-Os) 1,500 MG in Premix Bag 1 BAG IVPB SCH ×4 (07:44→20:50)
[2017-10-21] MEDS: Famotidine 20 MG TAB PO SCH ×2 (07:45→20:53)
--- NOTE | 2017-10-21 08:18 | PDOC.FM ---
- Subjective Subjective: Apparently had overnight seizure, lasting for one 1 minute with full body shaking. She is not as talkative today as when her friend was here yesterday. - Objective MAR Reviewed: Yes Vital Signs & Weight: Vital Signs (12 hours) Temp Pulse Resp BP BP BP Pulse Ox 10/21/17 07:45 91 187/87 H 10/21/17 07:10 100 F H 77 18 195/84 H 97 10/21/17 06:16 184/83 H 10/21/17 04:45 91 187/87 H 10/21/17 04:08 98.6 F 91 20 187/87 H 94 L 10/21/17 03:02 94 L 10/21/17 01:07 185/81 H 10/21/17 00:12 185/87 H 10/21/17 00:03 93 210/81 H 10/20/17 23:49 97.9 F 93 20 199/100 H 97 10/20/17 20:38 98.0 F 95 18 94 L 10/20/17 20:31 98.0 F 95 18 168/79 H 94 L Weight Weight 48.353 kg Most Recent Monitor Data Heart Rate from ECG 81 NIBP 169/78 NIBP BP-Mean 133 Respiration from ECG 13 SpO2 100 I&O: 10/20/17 10/21/17 10/22/17 06:59 06:59 06:59 Intake Total 877 Output Total 3 Balance 874 Result Diagrams: 10/20/17 06:56 10/20/17 06:56 <KamrynSalvatore M - Last Filed: 10/21/17 08:22> - Objective Vital Signs & Weight: Vital Signs (12 hours) Temp Pulse Resp BP BP BP Pulse Ox 10/21/17 11:10 98.6 F 76 18 95 10/21/17 08:30 100 F H 91 18 10/21/17 07:45 91 187/87 H 10/21/17 07:10 100 F H 77 18 195/84 H 97 10/21/17 06:16 184/83 H 10/21/17 04:45 91 187/87 H 10/21/17 04:08 98.6 F 91 20 187/87 H 94 L 10/21/17 03:02 94 L 10/21/17 01:07 185/81 H 10/21/17 00:12 185/87 H 03/17/18 00:03 93 210/81 H Weight Weight 48.353 kg Most Recent Monitor Data Heart Rate from ECG 81 NIBP 169/78 NIBP BP-Mean 133 Respiration from ECG 13 SpO2 100 I&O: 10/20/17 10/21/17 10/22/17 06:59 06:59 06:59 Intake Total 877 Output Total 3 Balance 874 Result Diagrams: 10/20/17 06:56 10/20/17 06:56 <Hong Moffett - Last Filed: 10/21/17 11:54> Phys Exam - Physical Examination Constitutional: NAD HEENT: moist MMs Neck: no nodes, supple Respiratory: no wheezing, clear to auscultation bilateral Cardiovascular: RRR, no significant murmur Gastrointestinal: soft Musculoskeletal: no edema Moves all 4 limb, but not to command. Eye open. Tone normal. No seizsure like activity noted. Deviation from normal: AO x0 Skin: no rash <Ly,Salvatore M - Last Filed: 10/21/17 08:22> Dx/Plan (1) Status epilepticus Code(s): G40.901 - EPILEPSY, UNSP, NOT INTRACTABLE, WITH STATUS EPILEPTICUS Status: Acute Plan: EEG was poor quality due to patient movement. Another EEG is planned today. Neurology said they did not see any seizure like activity. She may possibly have ongoing seizure. Neurosurgery and Critical Care feels that pseudoseizure should be considered as well. Patient cleared by speech for puree. At this point, discuss with neurology and neurosurgery about disposition, med adjustment as well as it may not be adequate. (2) SIRS (systemic inflammatory response syndrome) Code(s): R65.10 - SIRS OF NON-INFECTIOUS ORIGIN W/O ACUTE ORGAN DYSFUNCTION Status: Acute Plan: This appears to have resolved. May possibly from seizure activty Will continue abx at this time to cover for meningitis. . (3) Lactic acidosis Code(s): E87.2 - ACIDOSIS Status: Acute Plan: Trended down, two normal lactic acids since the initial elevation. (4) Hypertensive urgency Code(s): I16.0 - HYPERTENSIVE URGENCY Status: Acute Plan: BP is still running from high-normal to elevated Currently on hydralazine and labatelol prn REstarted amlodipine, consider adding lisinopril <Ly,Salvatore M - Last Filed: 10/21/17 08:22> Attending Addendum - Attending Addendum Date/Time: 10/21/17 1151 I personally evaluated the patient and discussed the management with Dr. Chase I agree with the History, Examination, Assessment and Plan documented above with any addition or exceptions noted below.Patient actively psychotic will need to address Mental Health and possible inpatient placement. Cultures to date negative. Family aware of of concerns and need for mental health follow up will restart prior psychiatric medications. <Hong Moffett - Last Filed: 10/21/17 11:54>
[2017-10-21] MEDS ORDERED: Amlodipine 5 MG TAB PO SCH (09:00)
--- NOTE | 2017-10-21 10:48 | PRG ---
DATE OF SERVICE: 10/21/2017 I saw Mariah Hart in rounds this morning. She is on the stroke unit currently. Her sitter does n ot report any significant events overnight. She had a low-grade fever at 100 degrees Fahrenheit. He r blood pressure has been high and difficult to control. When I see Ms. Hart, she says a few words to me today. She gets a phrase or two out. She continue s to blink while she is talking to me. There are some fine motor movements in the right arm, as I am talking to her, but she is still awake and communicating even during these events. Yesterday's white blood cell count is 10.7. Her sodium yesterday was 135. Ms. Hart has psychiatric diagnoses as well as a seizure disorder. She has a subdural hematoma that was evacuated and the postoperative images showed improvement. I am hesitant to put Ms. Hart through any more surgical intervention unless there is a clear-cut in dication for it. A continuous EEG showing left-sided seizure activity might be such indication, but one was not performed. We will continue to follow Ms. Hart during her hospitalization.
[2017-10-21] MEDS ORDERED: traZODone HCl 50 MG TAB PO PRN (12:46)
[2017-10-21] MEDS: Multivitamins, Adult 10 ML, Folic Acid 1 MG, Thiamine HCl 100 MG in Dextrose 5 %-0.45 %... IV SCH ×4 (17:17)
[2017-10-21] MEDS: Pravastatin Sodium 40 MG TAB PO SCH (20:55)
[2017-10-21] MEDS: risperiDONE 1 MG TAB PO SCH (20:55)
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
[2017-10-21] MEDS ORDERED: Divalproex Sodium 250 MG (DR) TAB PO SCH (21:00)
[2017-10-21] MEDS: Valproate Sodium 500 MG in Sodium Chloride 0.9% 100 ML IVPB SCH (22:29)
[2017-10-22] MEDS: Labetalol HCl 100 MG/20 ML VIAL SLOW IVP PRN (01:36)
[2017-10-22] MEDS: Sodium Chloride 0.9% 1,000 ML IV SCH ×3 (02:06→22:04)
--- NOTE | 2017-10-22 08:16 | PDOC.FM ---
- Subjective Subjective: Patient was seen this morning, with left facial twitching, rhythmic flexion and extension in upper and lower limbs. When nail bed pressure was applied, patient withdrew and said "Ouch!", and then resumed prior behavior. Sitter and nurse were asked if her shaking was what she had prior, and they agreed that it was the same as during her seizure like episode, though on a lesser scale. - Objective MAR Reviewed: Yes Vital Signs & Weight: Vital Signs (12 hours) Temp Pulse Resp BP BP BP Pulse Ox 10/22/17 04:00 98.1 F 89 16 163/67 H 94 L 10/22/17 02:00 160/100 H 10/22/17 01:36 88 219/102 H 10/22/17 01:14 98.2 F 88 20 219/102 H 94 L Weight Weight 47.264 kg Most Recent Monitor Data Heart Rate from ECG 81 NIBP 169/78 NIBP BP-Mean 133 Respiration from ECG 13 SpO2 100 I&O: 10/21/17 10/22/17 10/23/17 06:59 06:59 06:59 Intake Total 1816 Balance 1816 Result Diagrams: 10/20/17 06:56 10/20/17 06:56 <Salvatore Harry M - Last Filed: 10/22/17 11:05> - Objective Vital Signs & Weight: Vital Signs (12 hours) Temp Pulse Resp BP BP Pulse Ox 10/22/17 15:30 87 18 158/79 H 10/22/17 15:15 100.2 F H 95 18 195/95 H 95 10/22/17 12:00 173/90 H 10/22/17 11:15 98.5 F 93 20 99 10/22/17 09:10 89 10/22/17 08:45 99 F 111 H 16 98 10/22/17 08:00 99 F 89 18 98 Weight Weight 47.264 kg Most Recent Monitor Data Heart Rate from ECG 81 NIBP 169/78 NIBP BP-Mean 133 Respiration from ECG 13 SpO2 100 I&O: 10/21/17 10/22/17 10/23/17 06:59 06:59 06:59 Intake Total 1816 480 Balance 1816 480 Result Diagrams: 10/20/17 06:56 10/20/17 06:56 <Hong Moffett - Last Filed: 10/22/17 16:50> Phys Exam - Physical Examination Constitutional: NAD HEENT: moist MMs Respiratory: no wheezing, no rales, no rhonchi Cardiovascular: RRR, no significant murmur Gastrointestinal: soft, no distention, positive bowel sounds Musculoskeletal: no edema See subjective for full Lymphatic: no nodes Deviation from normal: AO x0, speaks but without making sense. Skin: no rash <Salvatore Harry - Last Filed: 10/22/17 11:05> Dx/Plan (1) Status epilepticus Code(s): G40.901 - EPILEPSY, UNSP, NOT INTRACTABLE, WITH STATUS EPILEPTICUS Status: Acute Plan: -Discussed about continuous EEG. This will have to be on an outpatient basis, 7 day EEG monitoring where patient comes in to hospital for scheduled EEG. -At this time, patient continues to have shaking spells, but it is atypical as today she was witnessed withdrawing from pain and saying "ouch" when nailbed pressure applied - Will continue with home medication, and increased dose of keppra. -Discuss with neurosurgery about ending meningitis coverage (2) SIRS (systemic inflammatory response syndrome) Code(s): R65.10 - SIRS OF NON-INFECTIOUS ORIGIN W/O ACUTE ORGAN DYSFUNCTION Status: Acute Plan: This appears to have resolved. May possibly from seizure activty (3) Lactic acidosis Code(s): E87.2 - ACIDOSIS Status: Acute Plan: Trended down, two normal lactic acids since the initial elevation. (4) Hypertensive urgency Code(s): I16.0 - HYPERTENSIVE URGENCY Status: Acute Plan: BP is still running from high-normal to elevated Currently on hydralazine and labatelol prn Restarted amlodipine, started on losartan. <Salvatore Harry M - Last Filed: 10/22/17 11:05> Attending Addendum - Attending Addendum Date/Time: 10/22/17 7530 I personally evaluated the patient and discussed the management with Dr. Chase I agree with the History, Examination, Assessment and Plan documented above with any addition or exceptions noted below.Patient will need formal mental health assessment for placement. 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
[2017-10-22] MEDS: Valproate Sodium 500 MG in Sodium Chloride 0.9% 100 ML IVPB SCH ×2 (08:47→21:15)
[2017-10-22] MEDS ORDERED: Lisinopril 5 MG TAB PO SCH ×2 (09:00)
[2017-10-22] MEDS: Lorazepam 2 MG/ML VIAL SLOW IVP PRN (09:00)
[2017-10-22] MEDS: levETIRAcetam In NaCl (Iso-Os) 1,500 MG in Premix Bag 1 BAG IVPB SCH ×2 (09:04)
[2017-10-22] MEDS: Amlodipine 5 MG TAB PO SCH (09:10)
[2017-10-22] MEDS: Losartan 25 MG TAB PO SCH (09:10)
[2017-10-22] MEDS: risperiDONE 1 MG TAB PO SCH ×2 (09:10→20:24)
[2017-10-22] MEDS: Zonisamide 100 MG CAP PO SCH (09:11)
[2017-10-22] MEDS: Loratadine 10 MG TAB PO SCH (09:11)
[2017-10-22] MEDS: Pravastatin Sodium 40 MG TAB PO SCH ×2 (09:11→20:24)
[2017-10-22] MEDS: Famotidine 20 MG TAB PO SCH ×2 (09:11→20:23)
--- NOTE | 2017-10-22 09:34 | PRG ---
DATE OF SERVICE: 10/22/2017 NEUROSURGERY PROGRESS NOTE SUBJECTIVE: I am seeing Ms. Hart in her hospital room this morning. Her stepmother is at the [facility] and she is concerned. There were no fevers since yesterday morning. Other vital signs show bloo d pressures in the 160s. There was one blood pressure in the 200s recorded which may have been durin g seizure episode. On examination this morning, there is a twitching in the left thigh and left side of the face. Although she is not speaking to me, her eyes catch my gaze and follow me. She does se em to be responding to voice, however. Ms. Hart is a difficult case. She has psychiatric diagnoses. She likely has seizures and pseudose izures. She had a subdural hematoma over the left hemisphere and subdural hematoma looks better on f ollowup scans and it did before her operation and her neurologist at the [facility] wanted to see her as an outpatient rather than in her hospital before her discharge from that facility. Because Ms. Hart is not making significant progress, I believe we have to sort out whether the curr ent episodes are related to the right or left hemisphere seizure activity, generalized seizure activi ty or pseudoseizures. I believe the best way to do that is in our epilepsy monitoring unit that alberto joshi just created. We have the capability at [facility] to do 24-pardeep r EEG monitoring as long as neurologist can cover that. We will work with them on their scheduled is coming week. We can transfer her from the Stroke Unit to the Epilepsy Monitoring Unit if we have coverage for that monitoring unit and then we can document when episodes occur and whether there is a n electroencephalographic correlate to the spells. If they correlate nicely and these are epileptoge shayy fits, we will need to adjust antiepileptic medicines. If these are coming from the left hemisphe re predominantly, then the Neurosurgery Team will need to consider repeat bertha hole washout of the kirk bdural space. If they are coming predominantly from the right hemisphere, the medication needs to be used and if they are pseudoseizures, i.e., there is no electroencephalographic correlate to the spel ls, then psychiatry and MHMR should be involved. I think this is the only way to move her forward and I would like to do so.
--- NOTE | 2017-10-22 12:36 | PRG ---
DATE OF SERVICE: 10/22/2017 CHIEF COMPLAINT: Seizures. INTERVAL HISTORY: I spoke to the nursing staff this morning at around 6:00 a.m. She had another ruby nt with head turning to the left and twitching of both her upper extremities and this lasted about 1. 5 minutes and looked more like a tonic clonic seizure and she is also having intermittent episodes of not being in touch with surroundings and she has not been very oriented lately. There is also anoth er issue with her oxcarbazepine. She usually takes it at night and this drug has been pending since her arrival to the ER and family has been asked to bring this medication since it is non-formulary he re. LABORATORY DATA: Her white count 10.7, hemoglobin 10.9, hematocrit 32.9, platelets 198. Chemistries , no new labs have been requested recently and her ammonia level is 29. PHYSICAL EXAMINATION: VITAL SIGNS: Blood pressure is 163/67, temperature 98.5, pulse is 93. NEUROLOGIC: The patient is alert, sitting up and talking today and when addressed or directly asked questions, she kept saying she did not understand and her speech or mannerisms and her level of inter action is difficult to interpret as being meaningful. She does move her extremities. No cranial ner ve abnormalities were noted. IMPRESSION: Patient is a 51-year-old lady with subdural hematoma and prior stroke and structural les ions that can potentially serve a seizure focus. At this time, situation is rather complex because o f possible psychiatric issues and catatonia witnessed by Dr. Wynn and intermittently she is having so me pseudoseizures and seizures. RECOMMENDATIONS: 1. I have started her on Depakote last night and she seems to interact a little more, so please cont inue these medications. 2. I suggested they asked family to bring the medication and restart her oxcarbazepine, which she corral s been on prior to hospitalization which might help reduce these focal seizures. 3. I will request Dr. Wynn to take over the case tomorrow and see if the questions being raised abou t continuous EEG monitoring can be resolved.
[2017-10-22] MEDS: Nicotine 14 MG PATCH TOP SCH (14:01)
[2017-10-22] MEDS: Multivitamins, Adult 10 ML, Folic Acid 1 MG, Thiamine HCl 100 MG in Dextrose 5 %-0.45 %... IV SCH ×4 (14:01)
[2017-10-22] MEDS: OXCARBAZEPINE 600 MG PO SCH (20:22)
[2017-10-22] MEDS: levETIRAcetam 500 MG TAB PO SCH (20:24)
[2017-10-23 08:15] VITALS: BMI 19.8
--- NOTE | 2017-10-23 08:42 | PDOC.FM ---
- Subjective Subjective: Patient in bed eating with assistance with step mother by bedside. She is convering today more coherently. Denies any pain, nausea, says she feels "good" - Objective MAR Reviewed: Yes Vital Signs & Weight: Vital Signs (12 hours) Temp Pulse Resp BP BP Pulse Ox 10/23/17 07:42 98.6 F 74 18 152/79 H 97 10/23/17 04:35 98.3 F 70 16 130/59 L 94 L 10/23/17 00:00 97.4 F L 83 18 107/57 L 97 Weight Admit Weight 50.303 kg Weight 52.39 kg Most Recent Monitor Data Heart Rate from ECG 81 NIBP 169/78 NIBP BP-Mean 133 Respiration from ECG 13 SpO2 100 I&O: 10/22/17 10/23/17 10/24/17 06:59 06:59 06:59 Intake Total 181 3546 Balance 1816 3546 Result Diagrams: 10/20/17 06:56 10/20/17 06:56 <Salvatore Harry - Last Filed: 10/23/17 10:29> - Objective Vital Signs & Weight: Vital Signs (12 hours) Temp Pulse Resp BP BP Pulse Ox 10/23/17 08:00 98.6 F 74 18 97 10/23/17 07:42 98.6 F 74 18 152/79 H 97 10/23/17 04:35 98.3 F 70 16 130/59 L 94 L 10/23/17 00:00 97.4 F L 83 18 107/57 L 97 Weight Admit Weight 50.303 kg Weight 52.39 kg Most Recent Monitor Data Heart Rate from ECG 81 NIBP 169/78 NIBP BP-Mean 133 Respiration from ECG 13 SpO2 100 I&O: 10/22/17 10/23/17 10/24/17 06:59 06:59 06:59 Intake Total 1815 3546 Balance 1816 3546 Result Diagrams: 10/20/17 06:56 10/20/17 06:56 <Pricila Osman - Last Filed: 10/23/17 10:51> Phys Exam - Physical Examination Constitutional: NAD HEENT: moist MMs Neck: no nodes, supple Respiratory: no wheezing Cardiovascular: RRR, no significant murmur Gastrointestinal: soft, non-tender, no distention Musculoskeletal: no edema Neurological: moves all 4 limbs Psychiatric: normal affect Deviation from normal: AO x2 Skin: no rash <KamrynSalvatore Seth - Last Filed: 10/23/17 10:29> Dx/Plan (1) Status epilepticus Code(s): G40.901 - EPILEPSY, UNSP, NOT INTRACTABLE, WITH STATUS EPILEPTICUS Status: Acute Plan: Currently patient is improved. Will contact Neuro today on possibility of continuous EEG monitoring. No apparent seizure activity yesterday night. (2) SIRS (systemic inflammatory response syndrome) Code(s): R65.10 - SIRS OF NON-INFECTIOUS ORIGIN W/O ACUTE ORGAN DYSFUNCTION Status: Acute Plan: This appears to have resolved. May possibly from seizure activity. Resolved from admission. (3) Lactic acidosis Code(s): E87.2 - ACIDOSIS Status: Acute Plan: Trended down, two normal lactic acids since the initial elevation. Considered resolved from admission. (4) Hypertensive urgency Code(s): I16.0 - HYPERTENSIVE URGENCY Status: Acute Plan: BP is better controlled, high systolic in 150's. Currently on hydralazine and labatelol prn Restarted amlodipine, started on losartan. <KamyrnSalvatore Seth - Last Filed: 10/23/17 10:29> Attending Addendum - Attending Addendum Date/Time: 10/23/17 1050 I personally evaluated the patient and discussed the management with Dr. aHrry. I agree with the History, Examination, Assessment and Plan documented above with any addition or exceptions noted below. The patient continues to have seizure-like activity. Neurosurgery has recommended 24 continuous EEG monitoring. Will try to coordinate with neurology. Pt was less altered this morning but is confused when I rounded. She kept repeat "goldilocks rules." Will add PT today. <Pricila Osman - Last Filed: 10/23/17 10:51>
[2017-10-23] MEDS: Sodium Chloride 0.9% 1,000 ML IV SCH (09:25)
[2017-10-23] MEDS: Valproate Sodium 500 MG in Sodium Chloride 0.9% 100 ML IVPB SCH ×2 (09:33→20:32)
[2017-10-23] MEDS: Famotidine 20 MG TAB PO SCH ×2 (09:34→20:29)
[2017-10-23] MEDS: Pravastatin Sodium 40 MG TAB PO SCH ×2 (09:34→20:31)
[2017-10-23] MEDS: risperiDONE 1 MG TAB PO SCH ×2 (09:34→20:32)
[2017-10-23] MEDS: levETIRAcetam 500 MG TAB PO SCH ×2 (09:35→20:30)
[2017-10-23] MEDS: Loratadine 10 MG TAB PO SCH (09:35)
[2017-10-23] MEDS: Losartan 25 MG TAB PO SCH (09:35)
[2017-10-23] MEDS: Amlodipine 5 MG TAB PO SCH (09:35)
[2017-10-23] MEDS: Zonisamide 100 MG CAP PO SCH (12:31)
[2017-10-23] MEDS: Nicotine 14 MG PATCH TOP SCH (14:26)
[2017-10-23] MEDS: Multivitamins, Adult 10 ML, Folic Acid 1 MG, Thiamine HCl 100 MG in Dextrose 5 %-0.45 %... IV SCH ×4 (15:44)
[2017-10-23] MEDS: OXCARBAZEPINE 600 MG PO SCH (20:30)
[2017-10-24] MEDS: Sodium Chloride 0.9% 1,000 ML IV SCH ×3 (00:55→22:50)
[2017-10-24] MEDS: Valproate Sodium 500 MG in Sodium Chloride 0.9% 100 ML IVPB SCH ×2 (08:40→22:50)
[2017-10-24] MEDS: Loratadine 10 MG TAB PO SCH (08:41)
[2017-10-24] MEDS: levETIRAcetam 500 MG TAB PO SCH ×2 (08:41→20:49)
[2017-10-24] MEDS: Losartan 25 MG TAB PO SCH (08:41)
[2017-10-24] MEDS: risperiDONE 1 MG TAB PO SCH ×2 (08:41→20:51)
[2017-10-24] MEDS: Famotidine 20 MG TAB PO SCH ×2 (08:42→20:51)
[2017-10-24] MEDS: Pravastatin Sodium 40 MG TAB PO SCH ×2 (08:42→20:51)
[2017-10-24] MEDS: Amlodipine 5 MG TAB PO SCH (08:42)
--- NOTE | 2017-10-24 08:53 | PRG ---
DATE OF SERVICE: 10/23/2017 SUBJECTIVE: Ms. Hart was noted to have intermittent episodes of twitching of both upper extremitie s and episodes of confusion. There was a concern by neurosurgeon that this may be subclinical seizur es. The patient was actually seen by Dr. Weeks over the weekend, who had started her on Depakote. During my evaluation today, compared to previous visit that I had on , she is more awake, she is more talkative, she was able to converse, although not appropriate and her conversation was not a ppropriate with me. She denied having any chest pain, palpitation or headaches. PHYSICAL EXAMINATION: VITAL SIGNS: Blood pressure of 159/82, pulse of 90, temperature of 97.5, respirations of 18, O2 sats of 94% on room air. GENERAL: Well-developed, well-nourished female, in no apparent distress. RESPIRATORY: Clear to auscultation bilaterally. CARDIOVASCULAR: Regular rate and rhythm. NEUROLOGICAL: Mental status: The patient is awake and alert. She is oriented to person only. She is able to follow some simple commands. Speech and language: She is fluent. Her talk was inappropr iate to the situation. Cranial nerves: Pupils are 3 mm and reactive. She has a left hemineglect an d left hemianopia. Motor exam showed normal tone and bulk with a 5/5 strength in both upper and lowe r extremities. There is no drift noted. IMPRESSION: 1. Subdural hematoma. 2. Prior left occipital ischemic infarct. 3. Seizures. 4. Psychosis. ASSESSMENT AND PLAN: Ms. Hart is a pleasant 51-year-old female with a history of prior s troke and subdural hematoma status post evacuation, presented with the seizure-like episode. She has had few intermittent episodes of seizures during which she was able to respond. She is more talkati ve today than she has been on when I saw her. I have placed her on continuous EEG and I hav e reviewed the EEG that was done until now, which did not show any epileptiform discharges or subtran sients . She does not appear to be in subclinical status. Her background rhythm is predominant ly slow, which would correlate with underlying encephalopathy. At this time, I will recommend contin uing her on current antiepileptic medication. Continue supportive care. I will take her off of the continuous EEG on tomorrow morning. Thank you for the consultation.
--- NOTE | 2017-10-24 09:29 | PDOC.FM ---
Addendum entered and electronically signed by Salvatore Harry MD 10/24/17 10:52: Edit, pulse was 103, not temperature. Temp was consistent 98F Original Note: - Subjective Subjective: Patient found in bed, with continuous EEG monitoring. Nursing reports no seizure like activity overnight. ocular care technician reported that Neurology did not find anything abnormal and was going to end EEG . - Objective MAR Reviewed: Yes Vital Signs & Weight: Vital Signs (12 hours) Temp Pulse Resp BP Pulse Ox 10/24/17 08:42 95 10/24/17 07:09 98.6 F 95 18 98 10/24/17 07:05 97.7 F 103 H 17 152/82 H 98 10/24/17 04:20 98.6 F 95 18 169/87 H 98 10/24/17 00:43 98.9 F 96 15 167/82 H 97 Weight Admit Weight 50.303 kg Weight 48.79 kg Most Recent Monitor Data Heart Rate from ECG 81 NIBP 169/78 NIBP BP-Mean 133 Respiration from ECG 13 SpO2 100 I&O: 10/23/17 10/24/17 10/25/17 06:59 06:59 06:59 Intake Total 3546 1345 Output Total 500 Balance 3546 845 Result Diagrams: 10/20/17 06:56 10/20/17 06:56 <Salvatore Harry - Last Filed: 10/24/17 09:28> - Objective Vital Signs & Weight: Vital Signs (12 hours) Temp Pulse Resp BP Pulse Ox 10/24/17 08:42 95 10/24/17 07:09 98.6 F 95 18 98 10/24/17 07:05 97.7 F 103 H 17 152/82 H 98 10/24/17 04:20 98.6 F 95 18 169/87 H 98 10/24/17 00:43 98.9 F 96 15 167/82 H 97 Weight Admit Weight 50.303 kg Weight 48.79 kg Most Recent Monitor Data Heart Rate from ECG 81 NIBP 169/78 NIBP BP-Mean 133 Respiration from ECG 13 SpO2 100 I&O: 10/23/17 10/24/17 10/25/17 06:59 06:59 06:59 Intake Total 3546 1345 Output Total 500 Balance 3546 845 Result Diagrams: 10/20/17 06:56 10/20/17 06:56 <Pricila Osman - Last Filed: 10/24/17 11:04> Phys Exam - Physical Examination Constitutional: NAD Neck: supple Respiratory: no wheezing, no rales, no rhonchi Cardiovascular: RRR, no significant murmur, no rub Gastrointestinal: soft Musculoskeletal: no edema Neurological: moves all 4 limbs No seizure like activity was noted Deviation from normal: More interactive then previous, AOx2 Skin: no rash <Salvatore Harry - Last Filed: 10/24/17 09:28> Dx/Plan (1) Status epilepticus Code(s): G40.901 - EPILEPSY, UNSP, NOT INTRACTABLE, WITH STATUS EPILEPTICUS Status: Acute Plan: Follow up with neuro and neurosurgery recommendation. [facility] consult when cleared medically from seizure. Continue with current antiepilleptics. (2) Hypertensive urgency Code(s): I16.0 - HYPERTENSIVE URGENCY Status: Acute Plan: BP is better controlled, 160's systolic at highest. Currently on hydralazine and labatelol prn Restarted amlodipine, started on losartan. (3) SIRS (systemic inflammatory response syndrome) Code(s): R65.10 - SIRS OF NON-INFECTIOUS ORIGIN W/O ACUTE ORGAN DYSFUNCTION Status: Acute Plan: This appears to have resolved. May possibly from seizure activity. Resolved from admission. There was one episode of Fever of 103F, but recheck 4 minute later found temp back in normal range Temp since then been normal.. Possible equipment error. (4) Lactic acidosis Code(s): E87.2 - ACIDOSIS Status: Acute Plan: Trended down, two normal lactic acids since the initial elevation. Considered resolved from admission. <Salvatore Hrary - Last Filed: 10/24/17 09:28> Attending Addendum - Attending Addendum Date/Time: 10/24/17 1103 I personally evaluated the patient and discussed the management with Dr. Harry. I agree with the History, Examination, Assessment and Plan documented above with any addition or exceptions noted below. Out of hospital DNR signed. Patient's EEG has stopped and per report, did not show seizure-like activity. Will continue seizure meds. Patient's mentation is a little more clear today. Will follow-up with neurology recs. <Pricila Osman - Last Filed: 10/24/17 11:04>
[2017-10-24] MEDS: Zonisamide 100 MG CAP PO SCH (10:27)
[2017-10-24] MEDS: Nicotine 14 MG PATCH TOP SCH (15:51)
[2017-10-24] MEDS: Multivitamins, Adult 10 ML, Folic Acid 1 MG, Thiamine HCl 100 MG in Dextrose 5 %-0.45 %... IV SCH ×4 (15:51)
[2017-10-24] MEDS: OXCARBAZEPINE 600 MG PO SCH (20:49)
[2017-10-25 07:50] LABS: Anion Gap 14 mmol/L (10-20); BUN (Urea Nitrogen) 5 mg/dL (7.0-18.7); Calc. Creatinine Clearance 89 mL/min (70-130); Calcium 9.1 mg/dL (7.8-10.44); Carbon Dioxide 23 mmol/L (22-29); Chloride 110 mmol/L (98-107); Estimated GFR-MDRD Greater than 90; Glucose 97 mg/dL (70-105); Potassium 3.7 mmol/L (3.5-5.1); Sodium 143 mmol/L (136-145)
[2017-10-25 08:21] LABS: #Basophils 0.1 thou/uL (0.0-0.2); #Eosinphils 0.8 thou/uL (0.0-0.7); #Lymphocytes 2.7 thou/uL (1.20-3.40); #Monocytes 0.6 thou/uL (0.11-0.59); #Neutrophils 6.1 thou/uL (1.40-6.50); %Basophils 0.5 % (0.0-1.0); %Eosinophils 7.9 % (0.0-10.0); %Neutrophils 59.6 % (42.0-75.0); Mean Corpuscular Hemoglobin 31.3 pg (27.0-31.0); Mean Corpuscular Volume 97.7 fl (81.0-99.0); Mean Platelet Volume 7.7 fL (7.4-10.4); Platelet Count 119 thou/uL (130-400); RBC Distribution Width 14.2 % (11.5-14.5); Red Blood Cell (RBC) Count 3.82 mill/uL (4.20-5.40); White Blood Cell (WBC) Count 10.2 thou/uL (4.8-10.8)
[2017-10-25] MEDS: Sodium Chloride 0.9% 1,000 ML IV SCH (08:31)
[2017-10-25] MEDS: Losartan 25 MG TAB PO SCH (08:32)
[2017-10-25] MEDS: levETIRAcetam 500 MG TAB PO SCH ×2 (08:32→19:52)
[2017-10-25] MEDS: Loratadine 10 MG TAB PO SCH (08:33)
[2017-10-25] MEDS: Amlodipine 5 MG TAB PO SCH (08:33)
[2017-10-25] MEDS: Pravastatin Sodium 40 MG TAB PO SCH ×2 (08:33→19:52)
[2017-10-25] MEDS: Famotidine 20 MG TAB PO SCH ×2 (08:33→19:52)
[2017-10-25] MEDS: risperiDONE 1 MG TAB PO SCH ×2 (08:33→19:52)
[2017-10-25] MEDS: Valproate Sodium 500 MG in Sodium Chloride 0.9% 100 ML IVPB SCH ×2 (08:34→19:55)
--- NOTE | 2017-10-25 08:40 | PRG ---
DATE OF SERVICE: 10/25/2017 I saw Ms. Hart and her IMCU room this morning. She has had some continuous EEG monitoring in my ab sence showing no epileptiform activity. On examination this morning, Ms. Hart is awake. She is communicative. She talks with me. She ask ed my name and how to spell it. She remembers me from the other hospital. She understands that she had a brain operation previously and that her subdural hematoma is improving. She understands she ca me to [facility] with some spells and that the EEG showed that they were not epileptogenic. Ms. Hart still has a field cut from her prior stroke. Her arms and legs are working well. Ms. Hart will need placement. Her stepmother is very concerned about her safety going home. I hav e similar concerns. I would need a CT scan of her brain in about 3-4 weeks to show the size of the s ubdural hematoma to ensure it is going away. As for the social issues, this is a very difficult situ ation. Once there is a safe place for he on discharge, she can be sent out from the hospital. We wi ll follow her up in our neurosurgery clinic. During her hospitalization here if there are any further questions for the Neurosurgery Service pleas e do not hesitate to contact us.
--- NOTE | 2017-10-25 09:34 | PDOC.FM ---
- Subjective Subjective: Patient state she is not having issues and desires to return home. Nursing reports no acute events oernight. Neurosurgery reports concern about her safety going home. CM working on her discharge, currently with home health as patient did not desires SNU or other facilities. - Objective MAR Reviewed: Yes Vital Signs & Weight: Vital Signs (12 hours) Temp Pulse Resp BP BP Pulse Ox 10/25/17 08:33 89 183/83 H 10/25/17 07:25 98.8 F 89 16 180/83 H 96 10/25/17 05:20 171/77 H 10/25/17 04:00 98.3 F 102 H 16 192/92 H 100 Weight Admit Weight 50.303 kg Weight 49.016 kg Most Recent Monitor Data Heart Rate from ECG 81 NIBP 169/78 NIBP BP-Mean 133 Respiration from ECG 13 SpO2 100 I&O: 10/24/17 10/25/17 10/26/17 06:59 06:59 06:59 Intake Total 1345 Output Total 500 Balance 845 Result Diagrams: 10/25/17 07:27 10/25/17 07:27 <Salvatore Harry M - Last Filed: 10/25/17 09:32> - Objective Vital Signs & Weight: Vital Signs (12 hours) Temp Pulse Pulse Pulse Pulse Resp BP 10/25/17 17:23 93 187/101 H 10/25/17 16:10 93 187/101 H 10/25/17 15:30 98.2 F 93 19 10/25/17 11:06 98.7 F 93 16 10/25/17 10:25 91 97 92 10/25/17 10:07 127 H 10/25/17 08:33 89 183/83 H 10/25/17 08:00 98.8 F 89 16 10/25/17 07:25 98.8 F 89 16 BP BP BP BP Pulse Ox Pulse Ox Pulse Ox 10/25/17 17:23 10/25/17 16:10 10/25/17 15:30 187/101 H 93 L 10/25/17 11:06 181/93 H 99 10/25/17 10:25 175/85 H 181/93 H 170/79 H 95 98 10/25/17 10:07 185/96 H 10/25/17 08:33 10/25/17 08:00 96 10/25/17 07:25 180/83 H 96 Pulse Ox 10/25/17 17:23 10/25/17 16:10 10/25/17 15:30 10/25/17 11:06 10/25/17 10:25 98 10/25/17 10:07 10/25/17 08:33 10/25/17 08:00 10/25/17 07:25 Weight Admit Weight 50.303 kg Weight 49.016 kg Most Recent Monitor Data Heart Rate from ECG 81 NIBP 169/78 NIBP BP-Mean 133 Respiration from ECG 13 SpO2 100 I&O: 10/24/17 10/25/17 10/26/17 06:59 06:59 06:59 Intake Total 1345 Output Total 500 Balance 845 Result Diagrams: 10/25/17 07:27 10/25/17 07:27 <Pricila Osman - Last Filed: 10/25/17 17:54> Phys Exam - Physical Examination Constitutional: NAD HEENT: moist MMs Neck: supple Respiratory: no wheezing, no rhonchi Cardiovascular: RRR, no significant murmur Gastrointestinal: soft, non-tender Musculoskeletal: no edema Neurological: moves all 4 limbs Lymphatic: no nodes Deviation from normal: AOx3 Skin: no rash <Ly,Salvatore M - Last Filed: 10/25/17 09:32> Dx/Plan (1) Status epilepticus Code(s): G40.901 - EPILEPSY, UNSP, NOT INTRACTABLE, WITH STATUS EPILEPTICUS Status: Acute Plan: Pacement is likely to home with home health. [facility] does not feel she is danger to self. Says they can offer psych service as outpatient Continue with current antiepilleptics. Neuorsurgery reocmmends follow up in 3-[address] up [address] of brain and at their offic.e (2) Hypertensive urgency Code(s): I16.0 - HYPERTENSIVE URGENCY Status: Acute Plan: Has episode of HTN. Amlodipine increased from 5 mg to 10 mg. Expected that this will take time to lower. Pa (3) SIRS (systemic inflammatory response syndrome) Code(s): R65.10 - SIRS OF NON-INFECTIOUS ORIGIN W/O ACUTE ORGAN DYSFUNCTION Status: Acute Plan: This appears to have resolved. May possibly from seizure activity. Resolved from admission. (4) Lactic acidosis Code(s): E87.2 - ACIDOSIS Status: Acute Plan: Trended down, two normal lactic acids since the initial elevation. Considered resolved from admission. <Salvatore Harry - Last Filed: 10/25/17 09:32> Attending Addendum - Attending Addendum Date/Time: 10/25/17 8298 I personally evaluated the patient and discussed the management with Dr. Harry. I agree with the History, Examination, Assessment and Plan documented above with any addition or exceptions noted below. No new seizure activity. [facility] assessed. Coordinate with family on discharge planning. <Pricila Osman - Last Filed: 10/25/17 17:54>
--- NOTE | 2017-10-25 09:38 | PRG ---
DATE OF SERVICE: 10/24/2017 SUBJECTIVE: Ms. Hart is a pleasant 51-year-old female who presents with a history of occ ipital stroke and subdural hematoma, status post evacuation presented with recurrent seizure episodes . According to the nurse, there has not been any seizure type activity noted over the past 24 hours. She has remained stable over the past 24 hours. She does not complain of any headache, chest pain, palpitation, numbness, tingling or weakness. She had stated to the nurse that her vision is getting better. OBJECTIVE: VITAL SIGNS: Blood pressure 174/86, pulse of 101, temperature of 99.1, respirations of 18, O2 sats o f 96% on room air. GENERAL: Well-developed, well-nourished female, in no apparent distress. RESPIRATORY: Clear to auscultation bilaterally. CARDIOVASCULAR: Regular rate and rhythm. NEUROLOGIC: Essentially unchanged when compared to yesterday. IMPRESSION: 1. Seizure disorder. 2. Occipital stroke. 3. Subdural hematoma, status post evacuation. ASSESSMENT AND PLAN: Ms. Hart is a pleasant 51-year-old female who had episodes of confu mohini. These events are have not occurred over the past 24 hours. Her EEG remained normal during thi s time. At this time, I would recommend continuing her on Keppra, Trileptal, and Depakote. I would take her off of Dilantin as a level for the Dilantin is only 2.5 and Dilantin would counter act with Depakote and thus to reduce the drug interactions, I would recommend taking her off of Dilantin. If patient remains seizure free overnight, she is okay to be discharge. I will be happy to see her back in my clinic in 4-6 weeks post-discharge.
--- NOTE | 2017-10-25 10:13 | EEG ---
Referring Physician: DR. MICHELLE JOSHI EEG # [id number] TEST TYPE: ROUTINE INPATIENT REASON FOR EEG: ALTERED MENTAL STATUS EEG REPORT: This is a 21 channel digital EEG recording. Electrodes are placed using the international ten-twenty electrode placement system. The background rhythm is predominately 5-6 hertz theta rhythm. This EEG is severely limited by patient's eye movement and EMG artifact. There are no epileptiform discharges, sharp transients or asymmetry noted. The patient does not appear to be in status. HYPERVENTILATION: Not done. PHOTIC STIMULATION: Showed not effect. IMPRESSION: THIS IS AN ABNORMAL EEG. IT SHOWS MILD NONSPECIFIC CEREBRAL DYSFUNCTION. THIS EEG IS SEVERELY DEGRADED BY EYE MOVEMENT AND EMG ARTIFACT. THERE ARE NO EPILEPTIFORM DISCHARGES, SHARP TRANSIENTS OR ASYMMETRY NOTED. THIS COULD BE CONSISTENT WITH THE PATIENT'S UNDERLYING TOXIC METABOLIC ENCEPHALOPATHY. THIS FINDINGS SHOULD BE CLINICALLY COORDINATED. Sap Gatherer: SANIA Fermentation Manager: EEG.ROBIN LOPEZ
--- NOTE | 2017-10-25 10:36 | EEG ---
Referring Physician: DR. ALYSSA ROMO EEG # [id number] TEST TYPE: ROUTINE PORTABLE INPATIENT EEG DESCRIPTION: This is a 21 channel digital EEG recording. Electrodes are placed using the international ten-twenty electrode placement system. The background rhythm is predominately 5-6 hertz, low to medium voltage theta rhythm. This EEG is severely degraded by motion artifact. The patient was very uncooperative, was fighting and thrashing during this EEG. PHOTIC STIMULATION: Showed no effect. There are no epileptiform discharges, sharp transients or asymmetry noted. EKG LEAD: Shows 84 beats per minute, regular rhythm. IMPRESSION: THIS IS AN ABNORMAL EEG. IT SHOWS MILD NONSPECIFIC CEREBRAL DYSFUNCTION. THERE ARE NO EPILEPTIFORM DISCHARGES, SHARP TRANSIENTS OR ASYMMETRY NOTED. THIS EEG IS SEVERELY DEGRADED BY PATIENT'S MOVEMENT ARTIFACT. Curator Of Photography And Prints: SANIA Journeyman Carpenter: EEG.MSYing LOPEZ
[2017-10-25] MEDS: Zonisamide 100 MG CAP PO SCH (11:56)
[2017-10-25] MEDS: Nicotine 14 MG PATCH TOP SCH (12:03)
[2017-10-25] MEDS: hydrALAZINE 20 MG/ML VIAL SLOW IVP PRN (16:10)
[2017-10-25] MEDS: Labetalol HCl 100 MG/20 ML VIAL SLOW IVP PRN (17:23)
[2017-10-25] MEDS ORDERED: Hydrochlorothiazide 25 MG TAB PO SCH (19:30)
[2017-10-25] MEDS: OXCARBAZEPINE 600 MG PO SCH (19:53)
[2017-10-26] MEDS: Losartan 25 MG TAB PO SCH (07:44)
[2017-10-26] MEDS: levETIRAcetam 500 MG TAB PO SCH (07:45)
[2017-10-26] MEDS: Pravastatin Sodium 40 MG TAB PO SCH (07:45)
[2017-10-26] MEDS: risperiDONE 1 MG TAB PO SCH (07:46)
[2017-10-26] MEDS: Loratadine 10 MG TAB PO SCH (07:46)
[2017-10-26] MEDS: Famotidine 20 MG TAB PO SCH (07:46)
[2017-10-26] MEDS: Zonisamide 100 MG CAP PO SCH (08:08)
[2017-10-26] MEDS ORDERED: Hydrochlorothiazide 25 MG TAB PO SCH (09:00)
[2017-10-26] MEDS ORDERED: Valproic Acid 250 MG CAP PO SCH (09:00)
[2017-10-26] MEDS ORDERED: Amlodipine 10 MG TAB PO SCH (09:00)
--- NOTE | 2017-10-26 10:07 | PDOC.FM ---
- Subjective Subjective: Doing well today, no seizure like activity yesterday. Denies headache, abd pain , fever and tolerating food. - Objective MAR Reviewed: Yes Vital Signs & Weight: Vital Signs (12 hours) Temp Pulse Resp BP BP BP Pulse Ox 10/26/17 08:00 98.6 F 88 17 98 10/26/17 07:58 98.6 F 88 17 130/78 98 10/26/17 07:46 90 130/78 10/26/17 03:55 98.9 F 90 16 133/77 98 10/26/17 00:00 85 17 151/85 H 97 Weight Admit Weight 50.303 kg Weight 51.766 kg Most Recent Monitor Data Heart Rate from ECG 81 NIBP 169/78 NIBP BP-Mean 133 Respiration from ECG 13 SpO2 100 I&O: 10/25/17 10/26/17 10/27/17 06:59 06:59 06:59 Intake Total 720 Balance 720 Result Diagrams: 10/25/17 07:27 10/25/17 07:27 <Salvatore Harry - Last Filed: 10/26/17 10:03> - Objective Vital Signs & Weight: Vital Signs (12 hours) Temp Pulse Resp BP BP BP Pulse Ox 10/26/17 08:00 98.6 F 88 17 98 10/26/17 07:58 98.6 F 88 17 130/78 98 10/26/17 07:46 90 130/78 10/26/17 03:55 98.9 F 90 16 133/77 98 10/26/17 00:00 85 17 151/85 H 97 Weight Admit Weight 50.303 kg Weight 51.766 kg Most Recent Monitor Data Heart Rate from ECG 81 NIBP 169/78 NIBP BP-Mean 133 Respiration from ECG 13 SpO2 100 I&O: 10/25/17 10/26/17 10/27/17 06:59 06:59 06:59 Intake Total 720 Balance 720 Result Diagrams: 10/25/17 07:27 10/25/17 07:27 <Pricila Osman - Last Filed: 10/26/17 10:58> Phys Exam - Physical Examination Constitutional: NAD HEENT: moist MMs Neck: no nodes, supple Respiratory: no wheezing, no rales, no rhonchi, clear to auscultation bilateral Cardiovascular: RRR, no significant murmur, no rub Gastrointestinal: soft, no distention Musculoskeletal: no edema Neurological: non-focal, moves all 4 limbs No seizure like activity noted Deviation from normal: AOx2 Skin: no rash <Salvatore Harry Seth - Last Filed: 10/26/17 10:03> Dx/Plan (1) Status epilepticus Code(s): G40.901 - EPILEPSY, UNSP, NOT INTRACTABLE, WITH STATUS EPILEPTICUS Status: Acute Plan: Placement is likely to home with home health. No seizure last night. [facility] does not feel she is danger to self. Says they can offer psych service as outpatient Continue with current antiepilleptics. Neuorsurgery reocmmends follow up in 3-4 week for follow up ct of brain and at their office (2) Hypertensive urgency Code(s): I16.0 - HYPERTENSIVE URGENCY Status: Acute Plan: Improved BP with addition of HCTZ. Recommend follow up with PCP for continual BP management. (3) SIRS (systemic inflammatory response syndrome) Code(s): R65.10 - SIRS OF NON-INFECTIOUS ORIGIN W/O ACUTE ORGAN DYSFUNCTION Status: Acute Plan: This appears to have resolved. May possibly from seizure activity. Resolved from admission. (4) Lactic acidosis Code(s): E87.2 - ACIDOSIS Status: Acute Plan: Trended down, two normal lactic acids since the initial elevation. Considered resolved from admission. <Salvatore Harry Seth - Last Filed: 10/26/17 10:03> Attending Addendum - Attending Addendum Date/Time: 10/26/17 1057 I personally evaluated the patient and discussed the management with Dr. Harry. I agree with the History, Examination, Assessment and Plan documented above with any addition or exceptions noted below. Additional of hctz has helped improve hypertension. No seizure activity. Pt stable for discharge. <Pricila Osman - Last Filed: 10/26/17 10:58>
[2017-10-26 11:02] VITALS: BP 121/73; TEMP 97.7
--- NOTE | 2017-10-31 10:50 | DIS-2 ---
DATE OF ADMISSION: 10/17/2017 DATE OF DISCHARGE: 10/26/2017 ADMITTING ATTENDING: Dr. Hong Moffett. DISCHARGE ATTENDING: Dr. Pricila Osman. RESIDENT: Dr. Salvatore Harry. CONSULTANTS: 1. Dr. Crowley, Neurosurgery. 2. Dr. Bowens, Pulmonology. 3. Dr. Kristina Wynn, Neurology. PROCEDURES PERFORMED: 1. Brain CT on 10/17/2017. Impression: Partial drainage of left subdural hematoma with continued mild left to right shift. 2. Chest x-ray. Impression: Cardiomegaly with borderline pulmonary vascular congestion. 3. EEG on 10/21/2017, mild nonspecific cerebral dysfunction. There is no epileptiform discharges, sharp transientt or asymmetry noted. Second EEG: No epileptiform discharges, sharp transient or asymmetry noted. PRIMARY DIAGNOSES: 1. Status epilepticus. 2. Hypertensive urgency. 3. Systemic inflammatory response syndrome. 4. Lactic acidosis. DISCHARGE MEDICATIONS: 1. Amlodipine 10 mg p.o. daily. 2. Zyrtec 10 mg p.o. daily. 3. HCTZ 25 mg p.o. daily. 4. Keppra 1500 mg p.o. b.i.d. 5. Losartan 50 mg p.o. daily. 6. Carbamazepine 1200 mg p.o. daily. 7. Phenytoin 300 mg p.o. at bedtime. 8. Pravastatin 40 mg p.o. b.i.d. 9. Risperdal 1 mg p.o. b.i.d. 10. Trazodone 50 mg p.o. at bedtime. 11. Valproic acid 500 mg p.o. b.i.d. 12. Zonisamide 100 mg p.o. daily. HISTORY OF PRESENT ILLNESS AND HOSPITAL COURSE: This was a patient who was found to have a subdural hematoma 6 days prior to this hospital admission where she was noted to have an elevated Dilantin level and was advised to go to [facility] for evaluation where they found that she also had a subdural hematoma incidentally. Neurosurgery with Dr. Crowley saw her there and drained the hematoma. She then went home 5 days afterwards in good health. The following day, she was noted to have a seizure by her roommate and was seizing for an unknown amount time. EMS was called and she was brought to the ER at [facility] where she had 5 witnessed seizures. The seizure was stopped with Dilantin, Keppra and Ativan in the ER. She was also noted to have a blood pressure over 220 systolic on presentation. Neurosurgery and Neurology was consulted from the ER, where they agreed with current management. Lab ayoub , she was noted to have an elevated lactic acid on the machine of 9.8 and a pH of 7.1 with CO2 of 51.6. On physical exam, she was noted to have a temperature of 100.5 Fahrenheit. After her seizure, her exam found that she was not responsive to external stimuli, but she had no nuchal rigidity or pain to neck flexion. She appeared to be in a postictal state afterward. She was then admitted to the ICU with empiric antibiotic for meningitis. While in the ICU, she continued to have breakthrough seizure like activity. Neurology was consulted again and at that time, Keppra was increase to 1500 mg b.i.d., but apparently to no great affect, she continued having the seizure like activity and EEG was done. During the EEG exam, she exhibited non-typical seizure like activity such as roaming in bed, trying to climb out of bed and why she did not respond appropriately, she still can recognize through threat and move out the way and withdraw from pain while having seizure like activities. The EEG report done at that time read for no seizure activity. She was afebrile and culture was negative, so antibiotic was discontinued. She was then transitioned to stroke after that, where she then passed a bedside swallow test and at that time, had all of her home medications resumed. As the patient was still not fully at her baseline, we then started her on a new medication valproic acid to cover for both possible psychiatric causes as well as neurological causes for her seizures. After the addition of valproic acid, she seemed to have made marked improvement over the weekend. A 24-hour EEG was scheduled for the Monday afterward. The 24-hour EEG read for no seizure activity. MH/MR was consulted to evaluate for safety going home in the light of possible psychiatric disorder. They deemed that she was safe to go home. Case management was brought on to the case to arrange for home health , which was accomplished with guardian on home health. Her lactic acidosis, which she came in had resolved on the day of admission. As for her hypertensive urgency, her medication was titrated and then eventually HCTZ was added to her regimen to help bring down. After HCTZ was started, her blood pressure improved markedly usually from the highs of 180s down to 130s and 120s systolic. On the day of discharge, the patient was compressing well, had mostly logical thought and was oriented x2 to person and place, but not necessarily to time and patient's guardian was advised that she would need followup with Dr. Crowley in 1 month and with her neurologist and PCP within the next 1 to 2 weeks. DISPOSITION: Stable. DISCHARGE INSTRUCTIONS: 1. Location: To home. 2. Diet: At tolerated. 3. Activity: As tolerated with seizure precautions. 4. Followup: With Dr. Crowley within 1 month and Neurology within 1 week. JESSICA
== END 2017-10-26 14:52 | disposition home health service (06) | DRG 100 ==
LOC: ERS 09:37 → CCU 11:30 → 2SE 10-19 14:43 → IMCU/EMU 10-23 12:46
PROVIDERS: ADMIT Family Medicine; ATTEND Family Medicine
DX: G40.401 Other generalized epilepsy and epileptic syndromes, not intractable, with status epilepticus (principal); I62.00 Nontraumatic subdural hemorrhage, unspecified; R40.2213 Coma scale, best verbal response, none, at hospital admission; R40.2113 Coma scale, eyes open, never, at hospital admission; R65.10 Systemic inflammatory response syndrome (SIRS) of non-infectious origin without acute organ dysfunction; E87.2 Acidosis; E87.1 Hypo-osmolality and hyponatremia; I48.0 Paroxysmal atrial fibrillation; I69.854 Hemiplegia and hemiparesis following other cerebrovascular disease affecting left non-dominant side; R41.4 Neurologic neglect syndrome; F10.10 Alcohol abuse, uncomplicated; I10 Essential (primary) hypertension; F19.10 Other psychoactive substance abuse, uncomplicated; I16.0 Hypertensive urgency; Z87.820 Personal history of traumatic brain injury; Z66 Do not resuscitate; R40.2353 Coma scale, best motor response, localizes pain, at hospital admission; F29 Unspecified psychosis not due to a substance or known physiological condition; R45.1 Restlessness and agitation; F32.9 Major depressive disorder, single episode, unspecified; F41.9 Anxiety disorder, unspecified; Z91.5 Personal history of self-harm; I69.398 Other sequelae of cerebral infarction; H53.462 Homonymous bilateral field defects, left side
CPT/HCPCS: 36415; 36416; 51701; 70450; 71045; 80048; 80053; 80164; 80185; 80202; 80306; 80307; 81003; 81015; 82140; 82330; 82550; 82553; 82803; 83605; 83735; 84443; 84484; 85007; 85025; 85027; 85610; 85730; 87040; 87086; 93005; 95816; 95819; 95951; 95953; 96361; 96365; 96367; 96374; 96375; A4216; A4353; G8978-GP-CN; G8979-GP-CK; G8987-GO-CK; G8988-GO-CI; G8996-GN-CI; G8997-GN-CI; G9162-GN-CN; G9163-GN-CI; J0360; J0692; J1953; J2060; J3370; J3411; J3480; J3486; J7042; J7050; Q2009

== ENCOUNTER 2017-11-04 09:00 | Inpatient (IN) | payer OTHER ==
[2017-11-04 10:35] LABS: ALT (SGPT) 13 U/L (8-55); AST (SGOT) 13 U/L (5-34); Albumin 4.2 g/dL (3.5-5.0); Alcohol Less than 10 mg/dL (Less than 10); Alkaline Phosphatase 114 U/L (40-150); Anion Gap 14 mmol/L (10-20); BUN (Urea Nitrogen) 10 mg/dL (7.0-18.7); Bilirubin, Total 0.2 mg/dL (0.2-1.2); Calc. Creatinine Clearance 0 mL/min (70-130); Calcium 9.3 mg/dL (7.8-10.44); Carbon Dioxide 32 mmol/L (22-29); Chloride 80 mmol/L (98-107); Estimated GFR-MDRD 85; Globulin 2.8 g/dL (2.4-3.5); Glucose 92 mg/dL (70-105); Sodium 123 mmol/L (136-145)
[2017-11-04 10:37] LABS: Acetaminophen Less than 6.0 mcg/mL (10.0-30.0); Alcohol Less than 10 mg/dL (Less than 10); Salicylate Less than 8.0 mg/dL (15.0-30.0)
[2017-11-04 10:40] LABS: CKMB 0.5 ng/mL (0-6.6); Troponin I Less than 0.010 ng/mL (< 0.028)
[2017-11-04 10:46] LABS: Potassium 2.9 mmol/L (3.5-5.1)
[2017-11-04] MEDS ORDERED: Potassium Chloride 40 MEQ in Sodium Chloride 0.9% 500 ML IVPB ONE (11:00)
[2017-11-04 11:04] LABS: Hemoglobin 13.4 g/dL (12.0-16.0); Mean Corpuscular HGB CONC 34.3 g/dL (32.0-36.0); Mean Corpuscular Hemoglobin 31.7 pg (27.0-31.0); Mean Corpuscular Volume 92.6 fl (81.0-99.0); Mean Platelet Volume 6.9 fL (7.4-10.4); Platelet Count 160 thou/uL (130-400); RBC Distribution Width 13.4 % (11.5-14.5); Red Blood Cell (RBC) Count 4.22 mill/uL (4.20-5.40)
[2017-11-04 11:05] LABS: Eosinophils 8 % (0-10); Lymphocytes 41 % (21-51); MDiff Complete? YES; Monocytes 8 % (0-10); Neutrophil 43 % (42-75); PLT Morphology Comment Appears Adequate; RBC Morphology Normal
[2017-11-04 11:49] LABS: Bilirubin Negative (Negative); Blood, Urine Negative (Negative); Clarity CLEAR (Clear); Glucose, Urine (Dipstick) Negative (Negative); Leukocyte Negative (Negative); Nitrite Negative (Negative); Protein, Urine (Dipstick) Negative (Neg-Trace); Specific Gravity, Urine 1.026 (1.002-1.036); Urobilinogen 0.2 mg/dL (0.2-1.0); pH, Urine 6.5 (5.0-9.0)
[2017-11-04 11:58] LABS: Amphetamine Not Detected (NotDetected); Barbiturates Screen Detected (NotDetected); Benzodiazepine Screen Not Detected (NotDetected); Cocaine Metabolite Screen Not Detected (NotDetected); Medtox Control Line Valid? VALID (VALID); Medtox Reader # READER 4; Methadone Not Detected (NotDetected); Methamphetamine Not Detected (NotDetected); Opiate Screen Not Detected (NotDetected); Oxycodone Screen Not Detected (NotDetected); Phencyclidine (PCP) Not Detected (NotDetected); THC/Cannabinoid Screen Not Detected (NotDetected); Tricyclic Screen Not Detected (NotDetected)
--- NOTE | 2017-11-04 12:01 | CT ---
CT OF HEAD NONCONTRAST: COMPARISON: 10/17/17. INDICATION: Head injury. FINDINGS: Prominent regions of posterior aspect of each cerebral hemispheric encephalomalacia with ex vacuo dil atation of the ventricular system again seen. There is also prominence of the frontal horns of each l ateral ventricle. Left parietal bertha hole formations are again seen. There has been interval decrea se in size of extraaxial fluid collection with minimal residua remaining overlying the left convexity . Resolution of prior pneumocephalus. Focal density of the left parietal scalp suggests hematoma. IMPRESSION: 1. Interval decrease in size of extraaxial fluid collection overlying the left convexity with mild r esidua remaining. Resolution of prior pneumocephalus. 2. Redemonstration of bihemispheric encephalomalacia with ex vacuo dilatation of the ventricular sys tem. There is also a persistent prominence of the frontal horns, slightly increased in volume. Susie ventricular density adjacent this region could relate to transependymal cerebrospinal fluid migration . Recommend clinical correlation. Note is made that size of the ventricular system does not corresp ond to degree of intracranial pressure. POS: [facility]
[2017-11-04 12:28] LABS: Osmolality, Urine 528 mOsm/kg (300-900)
[2017-11-04 12:45] LABS: Sodium, Urine Less than 20 mmol/L (Not Available)
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
--- NOTE | 2017-11-04 12:59 | CT ---
CT CERVICAL SPINE WITHOUT CONTRAST: HISTORY: Fall. Injury. History of cerebrovascular accident. COMPARISON: CT cervical spine of 2016. FINDINGS: No acute fracture. No malalignment. The odontoid process is intact. The occipital condyles are int act. Mastoids are clear. There are abnormal calcifications of the carotid bulbs bilaterally. Lung apices are relatively clear. Paraspinal musculature is normal. Small lipoma of the anterior left cervical paraspinal musculature. IMPRESSION: 1. No acute fracture or malalignment of the cervical spine. 2. Motion artifact of the right third rib neck. POS: [facility]
[2017-11-04] MEDS ORDERED: traZODone HCl 50 MG TAB PO PRN (13:13)
[2017-11-04 14:02] LABS: Carbamazepine-Tegretol 2.6 ug/mL (4.0-12.0)
[2017-11-04 14:45] LABS: Magnesium 2.1 mg/dL (1.6-2.6); Phosphorus 2.9 mg/dL (2.3-4.7)
[2017-11-04 18:30] LABS: Anion Gap 12 mmol/L (10-20); BUN (Urea Nitrogen) 9 mg/dL (7.0-18.7); Calc. Creatinine Clearance 0 mL/min (70-130); Calcium 9.1 mg/dL (7.8-10.44); Carbon Dioxide 28 mmol/L (22-29); Chloride 87 mmol/L (98-107); Estimated GFR-MDRD Greater than 90; Glucose 87 mg/dL (70-105); Potassium 3.1 mmol/L (3.5-5.1); Sodium 124 mmol/L (136-145)
[2017-11-04] MEDS ORDERED: Potassium Chloride 40 MEQ in Sodium Chloride 0.9% 500 ML IVPB SCH (20:00)
[2017-11-04] MEDS ORDERED: Potassium Chloride 40 MEQ in Premix Bag 1 BAG IVPB SCH (20:30)
[2017-11-04 21:35] VITALS: BMI 22.4
[2017-11-04] MEDS ORDERED: Acetaminophen 325 MG TAB PO PRN (21:49)
[2017-11-04] MEDS: Sodium Chloride 0.9% 1,000 ML IV SCH (22:18)
[2017-11-04] MEDS: Pravastatin Sodium 40 MG TAB PO SCH (22:19)
[2017-11-04] MEDS: levETIRAcetam 500 MG TAB PO SCH (22:19)
[2017-11-04] MEDS: risperiDONE 1 MG TAB PO SCH (22:20)
[2017-11-04 22:21] LABS: Anion Gap 11 mmol/L (10-20); BUN (Urea Nitrogen) 9 mg/dL (7.0-18.7); Calc. Creatinine Clearance 97 mL/min (70-130); Calcium 8.8 mg/dL (7.8-10.44); Carbon Dioxide 29 mmol/L (22-29); Chloride 88 mmol/L (98-107); Estimated GFR-MDRD Greater than 90; Glucose 90 mg/dL (70-105); Sodium 125 mmol/L (136-145)
[2017-11-04 22:28] LABS: Potassium 2.9 mmol/L (3.5-5.1)
[2017-11-05] MEDS: Sodium Chloride 0.9% 1,000 ML IV SCH ×4 (00:16→18:06)
[2017-11-05] MEDS: Valproic Acid 250 MG CAP PO SCH ×3 (00:18→22:05)
[2017-11-05] MEDS ORDERED: Potassium Chloride 40 MEQ in Premix Bag 1 BAG IVPB SCH (01:15)
[2017-11-05] MEDS ORDERED: Potassium Chloride 40 MEQ in Sodium Chloride 0.9% 500 ML IVPB ONE (01:30)
[2017-11-05 02:16] LABS: #Basophils 0.1 thou/uL (0.0-0.2); #Eosinphils 0.7 thou/uL (0.0-0.7); #Lymphocytes 2.7 thou/uL (1.20-3.40); #Monocytes 0.6 thou/uL (0.11-0.59); #Neutrophils 3.1 thou/uL (1.40-6.50); %Basophils 1.3 % (0.0-1.0); %Eosinophils 10.2 % (0.0-10.0); %Lymphocytes 37.2 % (21.0-51.0); %Monocytes 8.6 % (0.0-10.0); %Neutrophils 42.7 % (42.0-75.0); Hemoglobin 10.4 g/dL (12.0-16.0); Mean Corpuscular HGB CONC 34.3 g/dL (32.0-36.0); Mean Corpuscular Volume 93.2 fl (81.0-99.0); Mean Platelet Volume 7.1 fL (7.4-10.4); Platelet Count 143 thou/uL (130-400); RBC Distribution Width 13.1 % (11.5-14.5); Red Blood Cell (RBC) Count 3.26 mill/uL (4.20-5.40); White Blood Cell (WBC) Count 7.2 thou/uL (4.8-10.8)
[2017-11-05 02:21] LABS: Anion Gap 7 mmol/L (10-20); BUN (Urea Nitrogen) 10 mg/dL (7.0-18.7); Calc. Creatinine Clearance 93 mL/min (70-130); Calcium 8.2 mg/dL (7.8-10.44); Carbon Dioxide 31 mmol/L (22-29); Chloride 92 mmol/L (98-107); Estimated GFR-MDRD Greater than 90; Glucose 104 mg/dL (70-105); Potassium 3.8 mmol/L (3.5-5.1); Sodium 126 mmol/L (136-145)
--- NOTE | 2017-11-05 07:25 | PDOC.FM ---
- Subjective Subjective: 51 yo F w/hx of seizure disorder, alcohol abuse, htn, and previous subdural hematoma presents after a fall at home. She was admitted for symptomatic hyponatremia vs seizure disorder. Today she is much more interactive however has been hallucinating about alligators eating her feet. She complains of no physical problems today and denies all symptoms in ROS. - Objective MAR Reviewed: Yes Vital Signs & Weight: Vital Signs (12 hours) Temp Pulse Resp BP Pulse Ox 11/05/17 04:38 97.9 F 68 12 149/83 H 100 11/05/17 00:00 148/79 H 11/04/17 22:00 97.5 F L 56 L 16 11/04/17 21:34 97.5 F L 56 L 16 166/73 H 97 Weight Weight 52.163 kg I&O: 11/04/17 11/05/17 11/06/17 06:59 06:59 06:59 Output Total 400 Balance -400 Result Diagrams: 11/05/17 01:54 11/05/17 01:54 <Luis Angel Prabhakar - Last Filed: 11/05/17 07:22> - Objective Vital Signs & Weight: Vital Signs (12 hours) Temp Pulse Resp BP BP Pulse Ox 11/05/17 09:03 66 151/81 H 11/05/17 08:00 98.2 F 74 14 125/76 98 11/05/17 04:38 97.9 F 68 12 149/83 H 100 11/05/17 00:00 148/79 H Weight Weight 52.163 kg I&O: 11/04/17 11/05/17 11/06/17 06:59 06:59 06:59 Output Total 400 Balance -400 Result Diagrams: 11/05/17 01:54 11/05/17 01:54 <Davide Rodriges - Last Filed: 11/05/17 10:48> Phys Exam - Physical Examination Constitutional: NAD HEENT: moist MMs, sclera anicteric Neck: supple, full ROM Respiratory: clear to auscultation bilateral Cardiovascular: RRR, no significant murmur Gastrointestinal: soft, non-tender, no distention Musculoskeletal: no edema, pulses present Neurological: normal sensation, moves all 4 limbs Deviation from normal: A&O x2, does not know year. She is currently having visual hallucinations Skin: no rash <Luis Angel Prabhakar - Last Filed: 11/05/17 07:22> Dx/Plan (1) Hyponatremia Code(s): E87.1 - HYPO-OSMOLALITY AND HYPONATREMIA Status: Acute (2) Hypokalemia Code(s): E87.6 - HYPOKALEMIA Status: Acute (3) Hypochloremia Code(s): E87.8 - OTH DISORDERS OF ELECTROLYTE AND FLUID BALANCE, NEC Status: Acute (4) Alkalosis Code(s): E87.3 - ALKALOSIS Status: Acute (5) Seizure Code(s): R56.9 - UNSPECIFIED CONVULSIONS Status: Chronic (6) Anxiety and depression Code(s): F41.9 - ANXIETY DISORDER, UNSPECIFIED; F32.9 - MAJOR DEPRESSIVE DISORDER, SINGLE EPISODE, UNSPECIFIED Status: Chronic (7) Bipolar 1 disorder Code(s): F31.9 - BIPOLAR DISORDER, UNSPECIFIED Status: Chronic (8) HTN (hypertension) Code(s): I10 - ESSENTIAL (PRIMARY) HYPERTENSION Status: Chronic (9) Vascular dementia Code(s): F01.50 - VASCULAR DEMENTIA WITHOUT BEHAVIORAL DISTURBANCE Status: Acute (10) Altered mental status Code(s): R41.82 - ALTERED MENTAL STATUS, UNSPECIFIED Status: Acute (11) H/O: CVA (cerebrovascular accident) Code(s): Z86.73 - PRSNL HX OF TIA (TIA), AND CEREB INFRC W/O RESID DEFICITS Status: Chronic - Plan Plan: Hyponatremia - True euvolemic hyponateremia - Na is improving as is her slowed mental status. - hold HCTZ - q4 BMP until Na reaches 130, then qday Seizure disorder - low valproic acid and carbamazapine levels. Will restart meds today - no witnessed seizure thus far Altered mental status - pt has improved greatly since admission and can currently hold an active conversation, however she has begun to hallucinate. - pt appears to have been off of most of her meds, will restart risperdol and monitor - consider [facility] consult Hypokalemia - resolved Hypochloremia - Replace via ns and bmp checks as above Bipolar disorder - restart home meds as above - follow up w/mhmr on discharge HTN - restart home meds, currently controlled Anxiety disorder - restart home meds <Luis Angel Prabhakar - Last Filed: 11/05/17 07:22> (1) Hyponatremia Code(s): E87.1 - HYPO-OSMOLALITY AND HYPONATREMIA Status: Acute (2) Hypokalemia Code(s): E87.6 - HYPOKALEMIA Status: Acute (3) Hypochloremia Code(s): E87.8 - OTH DISORDERS OF ELECTROLYTE AND FLUID BALANCE, NEC Status: Acute (4) Alkalosis Code(s): E87.3 - ALKALOSIS Status: Acute (5) Seizure Code(s): R56.9 - UNSPECIFIED CONVULSIONS Status: Chronic (6) Anxiety and depression Code(s): F41.9 - ANXIETY DISORDER, UNSPECIFIED; F32.9 - MAJOR DEPRESSIVE DISORDER, SINGLE EPISODE, UNSPECIFIED Status: Chronic (7) Bipolar 1 disorder Code(s): F31.9 - BIPOLAR DISORDER, UNSPECIFIED Status: Chronic (8) HTN (hypertension) Code(s): I10 - ESSENTIAL (PRIMARY) HYPERTENSION Status: Chronic (9) Vascular dementia Code(s): F01.50 - VASCULAR DEMENTIA WITHOUT BEHAVIORAL DISTURBANCE Status: Acute (10) Altered mental status Code(s): R41.82 - ALTERED MENTAL STATUS, UNSPECIFIED Status: Acute (11) H/O: CVA (cerebrovascular accident) Code(s): Z86.73 - PRSNL HX OF TIA (TIA), AND CEREB INFRC W/O RESID DEFICITS Status: Chronic <Davide Rodriges - Last Filed: 11/05/17 10:48> Attending Addendum - Attending Addendum Date/Time: 11/05/17 1046 I personally evaluated the patient and discussed the management with Dr. Prabhakar. I agree with the History, Examination, Assessment and Plan documented above with any addition or exceptions noted below. Patient mentation somewhat improved this morning with improvement in sodium levels. We will increase fluid rate to help sodium level correct a little faster. She has had no seizure activity and has no focal deficits. Other labs appear stable. Her antiseizure meds could be contributing to her low sodium levels though studies were not consistent with SIADH. <Davide Rodriges - Last Filed: 11/05/17 10:48>
[2017-11-05] MEDS ORDERED: Amlodipine 5 MG TAB PO SCH (09:00)
[2017-11-05] MEDS: Loratadine 10 MG TAB PO SCH (09:03)
[2017-11-05] MEDS: Amlodipine 10 MG TAB PO SCH (09:03)
[2017-11-05] MEDS: Losartan 25 MG TAB PO SCH (09:03)
[2017-11-05] MEDS: levETIRAcetam 500 MG TAB PO SCH ×2 (09:04→20:06)
[2017-11-05] MEDS: Pravastatin Sodium 40 MG TAB PO SCH ×2 (09:04→20:06)
[2017-11-05] MEDS: Zonisamide 100 MG CAP PO SCH (09:05)
[2017-11-05] MEDS: risperiDONE 1 MG TAB PO SCH ×2 (09:05→20:06)
[2017-11-05 10:53] LABS: Anion Gap 10 mmol/L (10-20); BUN (Urea Nitrogen) 9 mg/dL (7.0-18.7); Calc. Creatinine Clearance 98 mL/min (70-130); Calcium 8.5 mg/dL (7.8-10.44); Carbon Dioxide 27 mmol/L (22-29); Chloride 96 mmol/L (98-107); Estimated GFR-MDRD Greater than 90; Glucose 102 mg/dL (70-105); Potassium 3.8 mmol/L (3.5-5.1); Sodium 129 mmol/L (136-145)
[2017-11-05 20:52] LABS: Anion Gap 9 mmol/L (10-20); BUN (Urea Nitrogen) 10 mg/dL (7.0-18.7); Calc. Creatinine Clearance 80 mL/min (70-130); Calcium 8.4 mg/dL (7.8-10.44); Carbon Dioxide 24 mmol/L (22-29); Chloride 102 mmol/L (98-107); Estimated GFR-MDRD 89; Glucose 98 mg/dL (70-105); Potassium 3.4 mmol/L (3.5-5.1); Sodium 132 mmol/L (136-145)
[2017-11-05] MEDS: OXcarbazepine 300 MG TAB PO SCH (22:05)
[2017-11-06] MEDS: Sodium Chloride 0.9% 1,000 ML IV SCH (03:13)
[2017-11-06 05:22] LABS: Anion Gap 10 mmol/L (10-20); BUN (Urea Nitrogen) 10 mg/dL (7.0-18.7); Calc. Creatinine Clearance 89 mL/min (70-130); Calcium 8.5 mg/dL (7.8-10.44); Carbon Dioxide 22 mmol/L (22-29); Chloride 109 mmol/L (98-107); Estimated GFR-MDRD Greater than 90; Glucose 94 mg/dL (70-105); Potassium 3.8 mmol/L (3.5-5.1); Sodium 137 mmol/L (136-145)
--- NOTE | 2017-11-06 08:29 | PDOC.FM ---
- Subjective Subjective: 51 yo F w/hx of seizure disorder, alcohol abuse, htn, and previous subdural hematoma presents after a fall at home. She was admitted for symptomatic hyponatremia vs seizure disorder. Today pt states that she is feeling much better. She is very interactive and has no specific complaints. She denies headache, fever, chest pain, n/v and all other symptoms in. There were no acute events. Per nursing there were no episodes of hallucination yesterday. - Objective MAR Reviewed: Yes Vital Signs & Weight: Vital Signs (12 hours) Temp Pulse Resp BP Pulse Ox 11/06/17 07:55 98.6 F 77 18 171/86 H 98 11/06/17 00:35 97.9 F 90 12 170/83 H 98 Weight Weight 52.163 kg I&O: 11/05/17 11/06/17 11/07/17 06:59 06:59 06:59 Intake Total 3174 Output Total 400 800 Balance -400 2374 Result Diagrams: 11/05/17 01:54 11/06/17 04:35 <Luis Angel Prabhakar - Last Filed: 11/06/17 08:27> - Objective Vital Signs & Weight: Vital Signs (12 hours) Temp Pulse Resp BP Pulse Ox 11/06/17 09:07 77 11/06/17 07:55 98.6 F 77 18 171/86 H 98 11/06/17 00:35 97.9 F 90 12 170/83 H 98 Weight Weight 52.163 kg I&O: 11/05/17 11/06/17 11/07/17 06:59 06:59 06:59 Intake Total 3174 240 Output Total 400 800 Balance -400 2374 240 Result Diagrams: 11/05/17 01:54 11/06/17 04:35 <Davide Rodriges - Last Filed: 11/06/17 11:39> Phys Exam - Physical Examination Constitutional: NAD HEENT: moist MMs, sclera anicteric Neck: supple, full ROM Respiratory: clear to auscultation bilateral Cardiovascular: RRR, no significant murmur Gastrointestinal: soft, non-tender, no distention, positive bowel sounds Musculoskeletal: no edema Neurological: non-focal, moves all 4 limbs Psychiatric: normal affect Deviation from normal: A&O x2, pt does not know the year. Skin: no rash <Luis Angel Prabhakar Last Filed: 11/06/17 08:27> Dx/Plan (1) HTN (hypertension) Code(s): I10 - ESSENTIAL (PRIMARY) HYPERTENSION Status: Chronic QualifierTitle: Hypertension type: essential hypertension Qualified Code( s): I10 - Essential (primary) hypertension (2) Seizure Code(s): R56.9 - UNSPECIFIED CONVULSIONS Status: Chronic (3) Anxiety and depression Code(s): F41.9 - ANXIETY DISORDER, UNSPECIFIED; F32.9 - MAJOR DEPRESSIVE DISORDER, SINGLE EPISODE, UNSPECIFIED Status: Chronic (4) Bipolar 1 disorder Code(s): F31.9 - BIPOLAR DISORDER, UNSPECIFIED Status: Chronic (5) Vascular dementia Code(s): F01.50 - VASCULAR DEMENTIA WITHOUT BEHAVIORAL DISTURBANCE Status: Acute (6) Altered mental status Code(s): R41.82 - ALTERED MENTAL STATUS, UNSPECIFIED Status: Resolved (7) H/O: CVA (cerebrovascular accident) Code(s): Z86.73 - PRSNL HX OF TIA (TIA), AND CEREB INFRC W/O RESID DEFICITS Status: Chronic (8) Hyponatremia Code(s): E87.1 - HYPO-OSMOLALITY AND HYPONATREMIA Status: Resolved (9) Hypokalemia Code(s): E87.6 - HYPOKALEMIA Status: Resolved (10) Hypochloremia Code(s): E87.8 - OTH DISORDERS OF ELECTROLYTE AND FLUID BALANCE, NEC Status: Resolved (11) Alkalosis Code(s): E87.3 - ALKALOSIS Status: Resolved - Plan Plan: Hyponatremia - resolved. This episode was most likely precipitated by decreased oral intake. - Will continue to hold HCTZ and have pt follow up outpt for further management of HTN Seizure disorder - low valproic acid and carbamazapine levels on admission. - Meds have been restarted. - no witnessed seizure thus far Altered mental status - all symptoms have resolved, although she continues to have trouble remembering the year. Given her known pathology, this may be her baseline. Attempt to verify with family Hypokalemia - resolved Hypochloremia - Resolved Bipolar disorder - restart home meds as above - follow up w/[facility] on discharge HTN - pt is still off of HCTZ as above and therefore has been hypertensive. Consider new class of antihypertensive today. Will need further management outpatient. Anxiety disorder - restart home meds Dispo: pt is stable and likely back at baseline. Electrolyte abnormalities have resolved. Likely ready for dc today <Luis Angel Prabhakar - Last Filed: 11/06/17 08:27> (1) Hyponatremia Code(s): E87.1 - HYPO-OSMOLALITY AND HYPONATREMIA Status: Resolved (2) Hypokalemia Code(s): E87.6 - HYPOKALEMIA Status: Resolved (3) Hypochloremia Code(s): E87.8 - OTH DISORDERS OF ELECTROLYTE AND FLUID BALANCE, NEC Status: Resolved (4) Alkalosis Code(s): E87.3 - ALKALOSIS Status: Resolved (5) Seizure Code(s): R56.9 - UNSPECIFIED CONVULSIONS Status: Chronic (6) Anxiety and depression Code(s): F41.9 - ANXIETY DISORDER, UNSPECIFIED; F32.9 - MAJOR DEPRESSIVE DISORDER, SINGLE EPISODE, UNSPECIFIED Status: Chronic (7) Bipolar 1 disorder Code(s): F31.9 - BIPOLAR DISORDER, UNSPECIFIED Status: Chronic (8) HTN (hypertension) Code(s): I10 - ESSENTIAL (PRIMARY) HYPERTENSION Status: Chronic Qualifiers: Hypertension type: essential hypertension Qualified Code(s): I10 - Essential (primary) hypertension (9) Vascular dementia Code(s): F01.50 - VASCULAR DEMENTIA WITHOUT BEHAVIORAL DISTURBANCE Status: Acute (10) Altered mental status Code(s): R41.82 - ALTERED MENTAL STATUS, UNSPECIFIED Status: Resolved (11) H/O: CVA (cerebrovascular accident) Code(s): Z86.73 - PRSNL HX OF TIA (TIA), AND CEREB INFRC W/O RESID DEFICITS Status: Chronic <Davide Rodriges - Last Filed: 11/06/17 11:39> Attending Addendum - Attending Addendum Date/Time: 11/06/17 3515 I personally evaluated the patient and discussed the management with Dr. Prabhakar. I agree with the History, Examination, Assessment and Plan documented above with any addition or exceptions noted below. Patient with resolved hyponatremia and her mentation is substantially improved. She feels well to go home. I have recommended that she consider SNF placement for a short term or at minimum home health, and she will consider that this morning. If BP continues to be elevated, will increase Losartan and continue holding her HCTZ as it likely at least contributed to her hyponatremia. She will need close follow up outpatient if she chooses to go home. If home is her choice, she should be ready to go later this afternoon. <Davide Rodriges - Last Filed: 11/06/17 11:39>
[2017-11-06] MEDS: Loratadine 10 MG TAB PO SCH (09:07)
[2017-11-06] MEDS: levETIRAcetam 500 MG TAB PO SCH ×2 (09:07→22:16)
[2017-11-06] MEDS: Amlodipine 10 MG TAB PO SCH (09:07)
[2017-11-06] MEDS: Valproic Acid 250 MG CAP PO SCH ×2 (09:08→22:20)
[2017-11-06] MEDS: risperiDONE 1 MG TAB PO SCH ×2 (09:08→22:18)
[2017-11-06] MEDS: OXcarbazepine 300 MG TAB PO SCH ×2 (09:08→22:18)
[2017-11-06] MEDS: Pravastatin Sodium 40 MG TAB PO SCH ×2 (09:08→22:20)
[2017-11-06] MEDS: Losartan 25 MG TAB PO SCH (09:08)
[2017-11-06] MEDS: Zonisamide 100 MG CAP PO SCH (09:08)
--- NOTE | 2017-11-06 16:52 | PQF ---
CLINICAL DOCUMENTATION IMPROVEMENT CLARIFICATION FORM: ICD-10 Updated PLEASE DO AN ADDENDUM TO THE PROGRESS NOTE WITH ANY DOCUMENTATION UPDATES OR ADDITIONS AND CARRY THROUGH TO DC SUMMARY. THANK YOU. DATE: 11/06/17 ATTN: Dr. Luis Angel Prabhakar/ Attending: Dr. Rodriges Please exercise your independent, professional judgment in responding to the clarification form. Clinical indicators are provided on the bottom of this form for your review Please check appropriate box(s): [ ] Encephalopathy: Type: [ x] Acute [ ] Subacute [ ] Chronic Etiology: [ x ] Metabolic [ ] Toxic [ ] Unspecified [ ] in the setting of underlying dementia [ ] Other (please specify) [ x ] Other diagnosis hyponatremia [ ] Unable to determine In addition, please specify: Present on Admission (POA): [ X ] Yes [ ] No [ ] Unable to determine For continuity of documentation, please document condition throughout progress notes and discharge summary. Thank You. CLINICAL INDICATORS - SIGNS / SYMPTOMS / LABS H&P: A&O X2 ALTERED MENTAL STATUS: DX INCLUDES SYMPTOMATIC HYPONATREMIA, METABOLIC ENCEPHALOPATHY, UNDERLYING PSYCHIATRIC PATHOLOGY. PN 11/06: ATTENDING: PT WITH RESOLVED HYPONATREMIA & HER MENTATION IS SUBSTANTIALLY IMPROVED. RISKS: H&P: HX OF SEIZURE DISORDER, ALCOHOL ABUSE, HTN, VASCULAR DEMENTIA, BIPOLAR D/O. PROBLEM LIST: HYPONATREMIA, HYPOKALEMIA, HYPOCHLOREMIA. AMS. TREATMENTS: CPOE 11/04: NS @ 100ML /HR DC'D 11/05/17 CPOE 11/05: KCL 40 MEQ IVPB ONE H&P: NEURO CHECKS Q 4 HR. Thank you, Anabelle (This form is maintained as a part of the permanent medical record) 2015 [employer]. All Rights Reserved Anabelle Stein RN, BSN [email or web address] Office: [phone] [facility], [place]
[2017-11-07 05:59] LABS: Anion Gap 10 mmol/L (10-20); BUN (Urea Nitrogen) 7 mg/dL (7.0-18.7); Calc. Creatinine Clearance 93 mL/min (70-130); Calcium 9.3 mg/dL (7.8-10.44); Carbon Dioxide 22 mmol/L (22-29); Chloride 103 mmol/L (98-107); Estimated GFR-MDRD Greater than 90; Glucose 92 mg/dL (70-105); Potassium 3.3 mmol/L (3.5-5.1); Sodium 132 mmol/L (136-145)
--- NOTE | 2017-11-07 07:51 | PDOC.FM ---
- Subjective Subjective: 51 yo F w/hx of seizure disorder, alcohol abuse, htn, and previous subdural hematoma that was admitted for symptomatic hyponatremia. Pt is doing well today and has no specific complaints. Per nursing, there were no acute events over night to include confusion or recurrence of hallucination. She denies any new symptoms today. - Objective MAR Reviewed: Yes Vital Signs & Weight: Vital Signs (12 hours) Temp Pulse Resp BP Pulse Ox 11/07/17 04:02 98.2 F 68 16 158/88 H 98 11/07/17 00:21 98.3 F 74 16 144/97 H 98 11/06/17 20:13 98.7 F 71 16 161/89 H 98 11/06/17 19:55 98.7 F 71 16 98 Weight Weight 52.163 kg I&O: 11/06/17 11/07/17 11/08/17 06:59 06:59 06:59 Intake Total 3174 1320 Output Total 800 250 Balance 2374 1070 Result Diagrams: 11/05/17 01:54 11/07/17 04:32 <Luis Angel Prabhakar - Last Filed: 11/07/17 07:50> - Objective Vital Signs & Weight: Vital Signs (12 hours) Temp Pulse Resp BP Pulse Ox 11/07/17 08:32 58 L 11/07/17 08:10 97.9 F 58 L 20 11/07/17 07:45 97.9 F 58 L 20 136/78 100 11/07/17 04:02 98.2 F 68 16 158/88 H 98 11/07/17 00:21 98.3 F 74 16 144/97 H 98 Weight Weight 52.163 kg I&O: 11/06/17 11/07/17 11/08/17 06:59 06:59 06:59 Intake Total 3174 1320 Output Total 800 250 Balance 2374 1070 Result Diagrams: 11/05/17 01:54 11/07/17 04:32 <Davide Rodriges - Last Filed: 11/07/17 10:44> Phys Exam - Physical Examination Constitutional: NAD HEENT: moist MMs, sclera anicteric Neck: supple, full ROM Respiratory: clear to auscultation bilateral Cardiovascular: RRR, no significant murmur Gastrointestinal: soft, non-tender, no distention, positive bowel sounds Musculoskeletal: no edema Neurological: normal sensation, moves all 4 limbs Psychiatric: normal affect, A&O x 3 Skin: no rash <Luis Angel Prabhakar - Last Filed: 11/07/17 07:50> Dx/Plan (1) HTN (hypertension) Code(s): I10 - ESSENTIAL (PRIMARY) HYPERTENSION Status: Chronic QualifierTitle: Hypertension type: essential hypertension Qualified Code( s): I10 - Essential (primary) hypertension (2) Seizure Code(s): R56.9 - UNSPECIFIED CONVULSIONS Status: Chronic (3) Anxiety and depression Code(s): F41.9 - ANXIETY DISORDER, UNSPECIFIED; F32.9 - MAJOR DEPRESSIVE DISORDER, SINGLE EPISODE, UNSPECIFIED Status: Chronic (4) Bipolar 1 disorder Code(s): F31.9 - BIPOLAR DISORDER, UNSPECIFIED Status: Chronic (5) Vascular dementia Code(s): F01.50 - VASCULAR DEMENTIA WITHOUT BEHAVIORAL DISTURBANCE Status: Chronic QualifierTitle: Dementia behavioral disturbance: with behavioral disturbance Qualified Code(s): F01.51 - Vascular dementia with behavioral disturbance (6) Altered mental status Code(s): R41.82 - ALTERED MENTAL STATUS, UNSPECIFIED Status: Resolved (7) H/O: CVA (cerebrovascular accident) Code(s): Z86.73 - PRSNL HX OF TIA (TIA), AND CEREB INFRC W/O RESID DEFICITS Status: Chronic (8) Hyponatremia Code(s): E87.1 - HYPO-OSMOLALITY AND HYPONATREMIA Status: Resolved (9) Hypokalemia Code(s): E87.6 - HYPOKALEMIA Status: Resolved (10) Hypochloremia Code(s): E87.8 - OTH DISORDERS OF ELECTROLYTE AND FLUID BALANCE, NEC Status: Resolved (11) Alkalosis Code(s): E87.3 - ALKALOSIS Status: Resolved - Plan Plan: Hyponatremia - resolved. This episode was most likely precipitated by decreased oral intake. - Will continue to hold HCTZ Seizure disorder - low valproic acid and carbamazapine levels on admission. - Meds have been restarted. - no witnessed seizure thus far Altered mental status - pt at baseline Hypokalemia - replace PO today Hypochloremia - Resolved Bipolar disorder - restart home meds as above - follow up w/[facility]hmr on discharge HTN - continue to hold HCTZ dt hyponatremia. Increased dose of losartan today Anxiety disorder - restart home meds Dispo: pt ready for dc pending placement at SNF <Luis Angel Prabhakar - Last Filed: 11/07/17 07:50> (1) Hyponatremia Code(s): E87.1 - HYPO-OSMOLALITY AND HYPONATREMIA Status: Resolved (2) Hypokalemia Code(s): E87.6 - HYPOKALEMIA Status: Resolved (3) Hypochloremia Code(s): E87.8 - OTH DISORDERS OF ELECTROLYTE AND FLUID BALANCE, NEC Status: Resolved (4) Alkalosis Code(s): E87.3 - ALKALOSIS Status: Resolved (5) Seizure Code(s): R56.9 - UNSPECIFIED CONVULSIONS Status: Chronic (6) Anxiety and depression Code(s): F41.9 - ANXIETY DISORDER, UNSPECIFIED; F32.9 - MAJOR DEPRESSIVE DISORDER, SINGLE EPISODE, UNSPECIFIED Status: Chronic (7) Bipolar 1 disorder Code(s): F31.9 - BIPOLAR DISORDER, UNSPECIFIED Status: Chronic (8) HTN (hypertension) Code(s): I10 - ESSENTIAL (PRIMARY) HYPERTENSION Status: Chronic Qualifiers: Hypertension type: essential hypertension Qualified Code(s): I10 - Essential (primary) hypertension (9) Vascular dementia Code(s): F01.50 - VASCULAR DEMENTIA WITHOUT BEHAVIORAL DISTURBANCE Status: Chronic Qualifiers: Dementia behavioral disturbance: with behavioral disturbance Qualified Code (s): F01.51 - Vascular dementia with behavioral disturbance (10) Altered mental status Code(s): R41.82 - ALTERED MENTAL STATUS, UNSPECIFIED Status: Resolved (11) H/O: CVA (cerebrovascular accident) Code(s): Z86.73 - PRSNL HX OF TIA (TIA), AND CEREB INFRC W/O RESID DEFICITS Status: Chronic <Davide Rodriges - Last Filed: 11/07/17 10:44> Attending Addendum - Attending Addendum Date/Time: 11/07/17 1042 I personally evaluated the patient and discussed the management with Dr. Prabhakar. I agree with the History, Examination, Assessment and Plan documented above with any addition or exceptions noted below. Patient continues to have improved mentation with her normalized sodium levels. She did have some decrease in sodium level after IVF stopped, likely 2/2 poor intake compounded by her AED's. Will introduce sodium chloride tablets today to help keep levels appropriate. She is other ayoub doing well and will be stable for discharge to SNF once accepted. <Davide Rodriges - Last Filed: 11/07/17 10:44>
[2017-11-07] MEDS ORDERED: Losartan 25 MG TAB PO SCH ×2 (07:55→09:00)
[2017-11-07] MEDS ORDERED: Potassium Chloride 20 MEQ TAB PO SCH (08:00)
[2017-11-07] MEDS: levETIRAcetam 500 MG TAB PO SCH (08:31)
[2017-11-07] MEDS: risperiDONE 1 MG TAB PO SCH (08:31)
[2017-11-07] MEDS: Loratadine 10 MG TAB PO SCH (08:31)
[2017-11-07] MEDS: Pravastatin Sodium 40 MG TAB PO SCH (08:32)
[2017-11-07] MEDS: Amlodipine 10 MG TAB PO SCH (08:32)
[2017-11-07] MEDS: Valproic Acid 250 MG CAP PO SCH (08:40)
[2017-11-07] MEDS ORDERED: Magnesium Chloride 64 MG TAB PO SCH (09:00)
[2017-11-07] MEDS: OXcarbazepine 300 MG TAB PO SCH (09:03)
[2017-11-07] MEDS: Zonisamide 100 MG CAP PO SCH (10:00)
[2017-11-07 11:50] VITALS: BP 145/76; TEMP 98.3
[2017-11-07] MEDS ORDERED: Sodium Chloride 1 GM TAB PO SCH (21:00)
--- NOTE | 2017-11-08 14:30 | DIS-2 ---
DATE OF ADMISSION: 11/04/2017 DATE OF DISCHARGE: 11/07/2017 RESIDENT: Luis Angel Prabhakar D.O. ADMITTING ATTENDING: Davide Rodriges M.D. DISCHARGE ATTENDING: Davide Rodriges M.D. CONSULTATIONS: None. PROCEDURES: None. PRIMARY DIAGNOSES: 1. Symptomatic hyponatremia. 2. Hypokalemia. 3. Hypochloremia. 4. Seizure disorder. SECONDARY DIAGNOSES: 1. Anxiety and depression. 2. Bipolar disorder. 3. Hypertension. 4. Vascular dementia. 5. History of cerebrovascular accident. DISCHARGE MEDICATIONS: Zyrtec 10 mg p.o. daily, Zonegran 100 mg p.o. daily, pravastatin 40 mg p.o. b.i.d., Risperdal 1 mg p.o. b.i.d., phenytoin 300 mg p.o. at bedtime, trazodone 50 mg p.o. at bedtime, amlodipine 10 mg p.o. daily, Keppra 1500 mg p.o. b.i.d., valproic acid 500 mg p.o. b.i.d., losartan 100 mg p.o. daily, Trileptal 600 mg p.o. b.i.d., sodium chloride 1 gram tab p.o. b.i.d. DISCONTINUED MEDICATIONS: Losartan 50 mg b.i.d., hydrochlorothiazide 25 mg p.o. daily and amlodipine 5 mg p.o. daily. HOSPITAL COURSE: This is a 51-year-old female with history of seizure disorder , alcohol abuse, hypertension, previous subdural status post surgical evacuation , who presented to the emergency room status post fall at home. Initially, there was concern for a seizure versus symptomatic hyponatremia. Initial labs had sodium of 123, potassium of 2.9, and chloride of 80. Patient was admitted for symptomatic hyponatremia to stroke with seizure precautions and observation. Upon admission, levels for Zonegran, valproate, carbamazepine and levetiracetam were all drawn and per results on those levels, if showing evidence of none detected. Valproic acid was low. Carbamazepine was low. Levetiracetam was within the therapeutic range. Serum osmolalities at that time showed a hypotonic hyponatremia. Regarding the symptomatic hyponatremia, the patient was given normal saline IV with q.4 hour BMPs with a target to increase the sodium, but no more than 10 over the first 24 hours. For the first 24 hours, the patient increased from 123 -126. In addition, the patient had potassium replaced improving to 3.1 over the first 24 hours. The patient quickly regained her baseline mental status as her electrolytes normalized. The patient did experience one episode of hallucinations over the first night of admission. However, by the next morning , the patient regained orientation and remained at her baseline functional status remainder of the hospitalization. Upon initial admission, hydrochlorothiazide was held and remained held during the hospitalization for concern that it could be contributing to the patient's hyponatremia, this medication was discontinued upon discharge. Additionally, the patient's sodium remained on the low end of normal during the hospitalization. The patient was started on salt tablet twice a day. It is very likely that this episode was secondary to poor nutrition and oral intake following her recent hospitalization. Her antileptics and hydrochlorothiazide certainly contributed. Given the patient's longstanding history of significant seizure disorder, her antiepileptics were restarted; however, hydrochlorothiazide was stopped. Regarding the patient's hypertension, after stopping her hydrochlorothiazide, the patient had a significant elevation of blood pressure into the 170/80 range. Because of concerns contributing to hyponatremia and likely continued hyponatremia in outpatient setting due to poor oral intake. Her losartan was increased rather than restarting her hydrochlorothiazide. This resulted in adequate control of blood pressure in the last day of admission with blood pressures in the 130-140 range systolic. It is recommended that in the outpatient setting, patient continue to monitor her blood pressure to optimize her blood pressure. However, it is recommended to dc hydrochlorothiazide given the patient's recent episode. Rule out the patient's seizure disorder, no seizure activity was demonstrated at that time of hospitalization, the patient was on seizure precautions throughout her hospitalization. It appears to be likely that the patient was not taking her medications, however, mangle tender states that she had been, so either the patient had not been taking her medications or she is significantly under-dosed given the less than therapeutic levels upon admission. It was recommended the patient to follow up with her PCP and prescribed for these antiepileptic medications for continued management. Regarding bipolar disorder, the patient appears to be relatively stable now and the valproic may contributing to her control. The patient needs to follow up with MR as previously recommended at the end of her recent admission. DISPOSITION: Patient was discharged in stable condition. LOCATION: To SNF. DIET: As regular. ACTIVITY: Ad cedrick. FOLLOWUP: With PCP and STEPHAN. JESSICA
== END 2017-11-07 17:18 | DRG 640 ==
LOC: ERS 09:00 → ERHOLD 13:07 → 2SE 21:19
PROVIDERS: ADMIT Student in an Organized Health Care Education/Training Program; ATTEND Student in an Organized Health Care Education/Training Program
DX: E87.1 Hypo-osmolality and hyponatremia (principal); G93.41 Metabolic encephalopathy; E87.3 Alkalosis; F01.51 Vascular dementia, unspecified severity, with behavioral disturbance; G40.909 Epilepsy, unspecified, not intractable, without status epilepticus; F10.10 Alcohol abuse, uncomplicated; I10 Essential (primary) hypertension; F41.9 Anxiety disorder, unspecified; F31.9 Bipolar disorder, unspecified; Z86.73 Personal history of transient ischemic attack (TIA), and cerebral infarction without residual deficits; E87.6 Hypokalemia; E87.8 Other disorders of electrolyte and fluid balance, not elsewhere classified; T50.2X5A Adverse effect of carbonic-anhydrase inhibitors, benzothiadiazides and other diuretics, initial encounter; W18.30XA Fall on same level, unspecified, initial encounter; Y92.012 Bathroom of single-family (private) house as the place of occurrence of the external cause; Z88.1 Allergy status to other antibiotic agents; F17.210 Nicotine dependence, cigarettes, uncomplicated
CPT/HCPCS: 36415; 51701; 70450; 72125; 80048; 80053; 80156; 80164; 80177; 80203; 80306; 80307; 81003; 82553; 83735; 83930; 83935; 84100; 84300; 84443; 84484; 85025; 87086; 93005; 96361; 96365; 96366; A4216; A4353; G8978-GP-CI; G8979-GP-CI; G8980-GP-CI; G8987-GO-CK; G8988-GO-CI; G8996-GN-CH; G8997-GN-CH; J3480; J7050

== ENCOUNTER 2017-12-14 01:32 | Emergency (ER) | payer OTHER ==
[2017-12-14 02:23] LABS: #Eosinphils 0.9 thou/uL (0.0-0.7); #Lymphocytes 4.6 thou/uL (1.20-3.40); #Monocytes 0.9 thou/uL (0.11-0.59); #Neutrophils 5.8 thou/uL (1.40-6.50); %Basophils 0.3 % (0.0-1.0); %Eosinophils 7.4 % (0.0-10.0); %Lymphocytes 37.9 % (21.0-51.0); %Neutrophils 47.4 % (42.0-75.0); Hemoglobin 11.6 g/dL (12.0-16.0); Mean Corpuscular HGB CONC 33.8 g/dL (32.0-36.0); Mean Corpuscular Hemoglobin 31.7 pg (27.0-31.0); Mean Corpuscular Volume 93.6 fl (81.0-99.0); Mean Platelet Volume 6.4 fL (7.4-10.4); Platelet Count 146 thou/uL (130-400); Red Blood Cell (RBC) Count 3.67 mill/uL (4.20-5.40); White Blood Cell (WBC) Count 12.2 thou/uL (4.8-10.8)
[2017-12-14 02:29] LABS: PTT 32.7 SEC (22.9-36.1); Prothrombin Time 13.7 SEC (12.0-14.7)
[2017-12-14 02:46] LABS: ALT (SGPT) 8 U/L (8-55); AST (SGOT) 11 U/L (5-34); Albumin 3.8 g/dL (3.5-5.0); Alkaline Phosphatase 94 U/L (40-150); Anion Gap 13 mmol/L (10-20); BUN (Urea Nitrogen) 10 mg/dL (7.0-18.7); Bilirubin, Total Less than 0.2 mg/dL (0.2-1.2); CK (CPK) 47 U/L (29-168); Calc. Creatinine Clearance 0 mL/min (70-130); Calcium 8.5 mg/dL (7.8-10.44); Carbon Dioxide 20 mmol/L (22-29); Chloride 97 mmol/L (98-107); Estimated GFR-MDRD Greater than 90; Globulin 2.4 g/dL (2.4-3.5); Glucose 99 mg/dL (70-105); Potassium 3.8 mmol/L (3.5-5.1); Protein, Total 6.2 g/dL (6.0-8.3); Sodium 126 mmol/L (136-145)
[2017-12-14 02:49] LABS: CKMB 1.1 ng/mL (0-6.6); Troponin I Less than 0.010 ng/mL (< 0.028)
[2017-12-14 04:02] LABS: Alcohol Less than 10 mg/dL (Less than 10)
[2017-12-14 04:48] LABS: Valproic Acid (Depakene) 55.8 ug/mL (50.0-100.0)
--- NOTE | 2017-12-14 09:36 | CT ---
PRELIMINARY REPORT/[facility]/EMERGENTY AFTER-HOURS PROCEDURE CT Head Without Intravenous Contrast EXAM DATE/TIME: 12/14/2017 2:00 AM CLINICAL HISTORY: 51 years old, female; Signs and symptoms; Altered mental status/memory loss; Confusion or disorientat ion; Patient HX: Pt presents via ems, reports of waking up from a night terror and was when she tran d ems. Ems arrived on scene and family informed they didn't want pt to go to the hospital but that pt roommate states pt was altered since 2199 and that she appear ayers, which is different from normal b aseline. TECHNIQUE: Axial computed tomography images of the head/brain without intravenous contrast. COMPARISON: No relevant prior studies available. FINDINGS: Brain: No evidence of acute large vessel infarction. No evidence of acute intracranial hemorrhage, ex traxial fluid or midline shift. Mild prominence of the cerebral sulci and ventricles. Mild low densit y changes within the white matter bilaterally. Cerebellum atrophic; otherwise, posterior fossa struct ures within normal limits. Bilateral areas encephalomalacia involving left temporal and right temporo ccipital lobes. Ventricles: See above. Bones/joints: Sal hole defects left parietal bone. No acute fracture. Soft tissues: Unremarkable. Sinuses: Unremarkable as visualized. No acute sinusitis. Mastoid air cells: Unremarkable as visualized. No mastoid effusion. IMPRESSION: 1. No evidence of acute large vessel infarction. 2. No evidence of acute intracranial hemorrhage, extraxial fluid or midline shift. 3. Mild cerebral atrophy. 4. 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 Thank you for allowing us to participate in the care of your patient. Dictated and Authenticated by: Marry Kiser MD 12/14/2017 2:45 AM Central Time ([place] & [place]) FINAL REPORT NONCONTRAST HEAD CT: Date: 12/14/17 HISTORY: Night terror. Altered mental status. COMPARISON: 11/04/17. TECHNIQUE: Noncontrast head CT is performed from skull base to skull vertex. FINDINGS: This report is in agreement with the preliminary report by Kareem. Stable encephalomalacia. No acute he morrhage. Stable postsurgical changes in the calvarium. No acute intracranial process. POS: [facility]
== END 2017-12-14 07:43 | disposition home or self-care (01) ==
LOC: ERS 01:32
DX: G40.909 Epilepsy, unspecified, not intractable, without status epilepticus (principal); J44.9 Chronic obstructive pulmonary disease, unspecified; I10 Essential (primary) hypertension; F41.9 Anxiety disorder, unspecified; F17.210 Nicotine dependence, cigarettes, uncomplicated; F32.9 Major depressive disorder, single episode, unspecified
CPT/HCPCS: 36415; 70450; 80053; 80164; 80185; 80307; 82553; 84146; 84484; 85025; 85610; 85730; 93005; 96360

== ENCOUNTER 2018-01-02 20:27 | Emergency (ER) | payer OTHER, SELFPAY ==
[2018-01-02 21:15] LABS: #Basophils 0.1 thou/uL (0.0-0.2); #Eosinphils 0.4 thou/uL (0.0-0.7); #Lymphocytes 2.2 thou/uL (1.20-3.40); #Monocytes 0.5 thou/uL (0.11-0.59); %Basophils 1.3 % (0.0-1.0); %Eosinophils 5.4 % (0.0-10.0); %Lymphocytes 30.7 % (21.0-51.0); %Monocytes 6.8 % (0.0-10.0); %Neutrophils 55.9 % (42.0-75.0); Hemoglobin 11.7 g/dL (12.0-16.0); Mean Corpuscular HGB CONC 33.8 g/dL (32.0-36.0); Mean Corpuscular Hemoglobin 32.2 pg (27.0-31.0); Mean Corpuscular Volume 95.1 fl (81.0-99.0); Mean Platelet Volume 6.7 fL (7.4-10.4); Platelet Count 139 thou/uL (130-400); RBC Distribution Width 14.3 % (11.5-14.5); Red Blood Cell (RBC) Count 3.65 mill/uL (4.20-5.40); White Blood Cell (WBC) Count 7.2 thou/uL (4.8-10.8)
[2018-01-02 21:21] LABS: INR-International Normal Ratio 1.1; PTT 29.4 SEC (22.9-36.1); Prothrombin Time 14.4 SEC (12.0-14.7)
[2018-01-02 21:35] LABS: ALT (SGPT) 9 U/L (8-55); AST (SGOT) 10 U/L (5-34); Albumin 4.2 g/dL (3.5-5.0); Alkaline Phosphatase 91 U/L (40-150); Anion Gap 13 mmol/L (10-20); BUN (Urea Nitrogen) 4 mg/dL (7.0-18.7); Bilirubin, Total 0.2 mg/dL (0.2-1.2); Calc. Creatinine Clearance 0 mL/min (70-130); Calcium 8.8 mg/dL (7.8-10.44); Carbon Dioxide 23 mmol/L (22-29); Chloride 98 mmol/L (98-107); Estimated GFR-MDRD Greater than 90; Globulin 2.4 g/dL (2.4-3.5); Glucose 144 mg/dL (70-105); Potassium 3.1 mmol/L (3.5-5.1); Protein, Total 6.6 g/dL (6.0-8.3); Sodium 131 mmol/L (136-145)
[2018-01-02 21:40] LABS: CKMB 0.9 ng/mL (0-6.6); Troponin I Less than 0.010 ng/mL (< 0.028)
--- NOTE | 2018-01-02 22:39 | CT ---
CT OF THE BRAIN WITHOUT CONTRAST 01/02/18 COMPARISON: 12/14/17 HISTORY: Left sided weakness. History of stroke. TECHNIQUE: Multiple contiguous axial images were obtained in a CT of the brain without contrast. FINDINGS: The brain is encephalomalacia in both parieto-occipital regions. No new large confluent infarction is seen. There is no evidence of hydrocephalus, intracranial hemorrhage or extra-axial fluid collection . Postsurgical changes are seen in the calvarium. The visualized paranasal sinuses and mastoid air cell s are well aerated. IMPRESSION: No evidence of acute intracranial abnormality. POS: [facility]
[2018-01-02 22:55] LABS: Bilirubin Negative (Negative); Blood, Urine Negative (Negative); Clarity CLOUDY (Clear); Glucose, Urine (Dipstick) Negative (Negative); Leukocyte Moderate (Negative); Nitrite Positive (Negative); Protein, Urine (Dipstick) Negative (Neg-Trace); Specific Gravity, Urine 1.006 (1.002-1.036); Urobilinogen 0.2 mg/dL (0.2-1.0)
[2018-01-02 22:57] LABS: Bacteria/HPF 1+ HPF (None Seen); Hyaline Casts/LPF 0-3 HYALINE CAST LPF (0-3 Hyaline); RBC/HPF 0-3 HPF (0-3); Squamous Epithelial 0-3 HPF (0-3)
[2018-01-02 23:06] LABS: Amphetamine Not Detected (NotDetected); Barbiturates Screen Detected (NotDetected); Benzodiazepine Screen Not Detected (NotDetected); Cocaine Metabolite Screen Not Detected (NotDetected); Medtox Control Line Valid? VALID (VALID); Medtox Reader # READER 4; Methadone Not Detected (NotDetected); Methamphetamine Not Detected (NotDetected); Opiate Screen Not Detected (NotDetected); Oxycodone Screen Not Detected (NotDetected); Phencyclidine (PCP) Not Detected (NotDetected); THC/Cannabinoid Screen Not Detected (NotDetected); Tricyclic Screen Not Detected (NotDetected)
[2018-01-02] MEDS ORDERED: Cephalexin 250 MG CAP ONE (23:54)
[2018-01-02] MEDS ORDERED: Ondansetron ODT 4 MG TAB ONE (23:56)
== END 2018-01-03 00:26 | disposition home or self-care (01) ==
LOC: ERS 20:27
DX: N39.0 Urinary tract infection, site not specified (principal); R41.82 Altered mental status, unspecified; G40.909 Epilepsy, unspecified, not intractable, without status epilepticus; Z86.73 Personal history of transient ischemic attack (TIA), and cerebral infarction without residual deficits; J44.9 Chronic obstructive pulmonary disease, unspecified; I10 Essential (primary) hypertension; F41.9 Anxiety disorder, unspecified; F17.210 Nicotine dependence, cigarettes, uncomplicated
CPT/HCPCS: 36415; 36416; 51701; 70450; 80053; 80164; 80185; 80306; 81003; 81015; 82553; 84484; 85025; 85610; 85730; 93005; A4353; Q0162

== ENCOUNTER 2018-01-08 13:14 | Outpatient (CLI) | payer OTHER ==
--- NOTE | 2018-01-08 15:35 | CT ---
CT BRAIN: HISTORY: Chronic subdural hematoma. DATE: CT brain obtained on 01/08/18. COMPARISON: Comparison is made to a previous exam from 01/02/18. FINDINGS: CT images of brain demonstrate left frontal and frontoparietal bertha holes again seen. Areas of encep halomalacia are seen in the right temporal lobe, right parietal lobe, and left parietal lobes. No ev idence of acute or chronic subdural hematoma is seen. No significant interval changes seen since the previous comparison CT from 5 days earlier. IMPRESSION: Extensive old encephalomalacic changes. No evidence of acute or chronic subdural hematoma is seen. No significant interval changes seen since the previous CT from 01/02/18. POS: [facility]
== END 2018-01-08 13:15 | disposition home or self-care (01) ==
LOC: SCSCT 13:14
PROVIDERS: ATTEND Neurological Surgery
DX: I62.03 Nontraumatic chronic subdural hemorrhage (principal)
CPT/HCPCS: 70450

== ENCOUNTER 2018-01-08 14:15 | Emergency (ER) | payer OTHER ==
[2018-01-08] MEDS ORDERED: Ketorolac Tromethamine 60 MG/2 ML VIAL ONE (14:57)
--- NOTE | 2018-01-08 15:33 | RAD ---
RIGHT HUMERUS 2 VIEWS: Date: 01/08/18 HISTORY: Trauma to arm. FINDINGS: There are no signs of fracture or dislocation. IMPRESSION: No evidence of fracture. POS: [facility]
--- NOTE | 2018-01-08 15:52 | RAD ---
LEFT FOREARM 2 VIEWS: Date: 01/08/18 HISTORY: Trauma to forearm. FINDINGS: There are no signs of fracture or dislocation. IMPRESSION: Negative left forearm. POS: [facility]
== END 2018-01-08 15:00 | disposition home or self-care (01) ==
LOC: SCSER 14:15
DX: S50.12XA Contusion of left forearm, initial encounter (principal); S40.021A Contusion of right upper arm, initial encounter; F32.9 Major depressive disorder, single episode, unspecified; F41.9 Anxiety disorder, unspecified; F17.210 Nicotine dependence, cigarettes, uncomplicated; I10 Essential (primary) hypertension; J44.9 Chronic obstructive pulmonary disease, unspecified; G40.909 Epilepsy, unspecified, not intractable, without status epilepticus; Z86.73 Personal history of transient ischemic attack (TIA), and cerebral infarction without residual deficits; X58.XXXA Exposure to other specified factors, initial encounter
CPT/HCPCS: 96372; J1885

== ENCOUNTER 2018-01-14 11:29 | Emergency (ER) | payer OTHER ==
[2018-01-14 12:24] LABS: #Eosinphils 0.3 thou/uL (0.0-0.7); #Lymphocytes 1.5 thou/uL (1.20-3.40); #Monocytes 0.6 thou/uL (0.11-0.59); #Neutrophils 7.8 thou/uL (1.40-6.50); %Basophils 0.3 % (0.0-1.0); %Eosinophils 2.5 % (0.0-10.0); %Lymphocytes 14.7 % (21.0-51.0); %Monocytes 6.2 % (0.0-10.0); %Neutrophils 76.3 % (42.0-75.0); Hemoglobin 12.8 g/dL (12.0-16.0); Mean Corpuscular HGB CONC 34.6 g/dL (32.0-36.0); Mean Corpuscular Hemoglobin 32.3 pg (27.0-31.0); Mean Corpuscular Volume 93.4 fl (81.0-99.0); Mean Platelet Volume 6.6 fL (7.4-10.4); PLT Morphology Comment Appears Decreased; Platelet Count 111 thou/uL (130-400); RBC Distribution Width 14.5 % (11.5-14.5); RBC Morphology Normal; Red Blood Cell (RBC) Count 3.96 mill/uL (4.20-5.40); White Blood Cell (WBC) Count 10.3 thou/uL (4.8-10.8)
[2018-01-14 12:34] LABS: ALT (SGPT) 8 U/L (8-55); AST (SGOT) 12 U/L (5-34); Alcohol Less than 10 mg/dL (Less than 10); Alkaline Phosphatase 103 U/L (40-150); Anion Gap 16 mmol/L (10-20); BUN (Urea Nitrogen) 11 mg/dL (7.0-18.7); Bilirubin, Total 0.2 mg/dL (0.2-1.2); CK (CPK) 94 U/L (29-168); Calc. Creatinine Clearance 0 mL/min (70-130); Calcium 8.8 mg/dL (7.8-10.44); Carbon Dioxide 22 mmol/L (22-29); Chloride 92 mmol/L (98-107); Estimated GFR-MDRD 89; Globulin 2.6 g/dL (2.4-3.5); Glucose 109 mg/dL (70-105); Magnesium 1.9 mg/dL (1.6-2.6); Potassium 3.4 mmol/L (3.5-5.1); Protein, Total 6.6 g/dL (6.0-8.3); Sodium 127 mmol/L (136-145)
[2018-01-14 12:38] LABS: CKMB 1.8 ng/mL (0-6.6); Troponin I Less than 0.010 ng/mL (< 0.028)
--- NOTE | 2018-01-14 12:46 | RAD ---
RIGHT SHOULDER 3 VIEWS: HISTORY: Fall. Right shoulder injury. FINDINGS: Acromioclavicular and glenohumeral alignment are maintained. No acute fracture, dislocation, or aggr essive osseous erosions. IMPRESSION: No acute osseous abnormalities are demonstrated. POS: [facility]
--- NOTE | 2018-01-14 12:47 | RAD ---
CHEST 1 VIEW: HISTORY: Fall. Chest injury. COMPARISON: 10/17/17. FINDINGS: Cardiac silhouette is magnified by projection. Pulmonary vasculature unremarkable. Mediastinum is m idline. No lobar consolidation or evidence of pneumothorax. Old left clavicular fracture. IMPRESSION: No active cardiopulmonary abnormalities are demonstrated. POS: [facility]
[2018-01-14 12:50] LABS: Bilirubin Small (Negative); Blood, Urine Negative (Negative); Clarity CLOUDY (Clear); Glucose, Urine (Dipstick) Negative (Negative); Leukocyte Moderate (Negative); Nitrite Negative (Negative); Protein, Urine (Dipstick) Trace mg/dL (Neg-Trace); Specific Gravity, Urine 1.031 (1.002-1.036); Urobilinogen 0.2 mg/dL (0.2-1.0)
[2018-01-14 12:51] LABS: Pathc Cast-AUWi Flag 0.29 (0-2.49)
--- NOTE | 2018-01-14 12:51 | CT ---
CT HEAD NONCONTRAST: HISTORY: Fall. Head injury. Altered mental status. COMPARISON: 01/08/18. FINDINGS: There is no evidence of acute intracranial hemorrhage or infarct. Ventricular dilatation and bilater al occipital infarcts are unchanged. Septum pellucidum is midline. 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 IMPRESSION: Chronic-type findings are stable. POS: [facility]
--- NOTE | 2018-01-14 12:52 | CT ---
CT CERVICAL SPINE NONCONTRAST: HISTORY: Fall. Neck injury. FINDINGS: Vertebral body height and alignment are maintained. No acute fracture or dislocation. Cervicothorac ic junction is intact. IMPRESSION: No acute osseous abnormalities of the cervical spine are demonstrated. POS: JEFERSON
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
[2018-01-14 12:59] LABS: Amphetamine Not Detected (NotDetected); Barbiturates Screen Detected (NotDetected); Benzodiazepine Screen Detected (NotDetected); Cocaine Metabolite Screen Not Detected (NotDetected); Medtox Control Line Valid? VALID (VALID); Medtox Reader # READER 1; Methadone Not Detected (NotDetected); Methamphetamine Not Detected (NotDetected); Opiate Screen Not Detected (NotDetected); Oxycodone Screen Not Detected (NotDetected); Phencyclidine (PCP) Not Detected (NotDetected); THC/Cannabinoid Screen Not Detected (NotDetected); Tricyclic Screen Not Detected (NotDetected)
[2018-01-14 13:09] LABS: Bacteria/HPF 2+ HPF (None Seen); Hyaline Casts/LPF NONE SEEN LPF (0-3 Hyaline); RBC/HPF 0-3 HPF (0-3); Renal Epithelial None Seen HPF (0-3); Squamous Epithelial 0-3 HPF (0-3); Transitional Epithelial NONE SEEN HPF (0-3)
[2018-01-14] MEDS ORDERED: Ketorolac Tromethamine 30 MG/ML VIAL ONE (13:23)
[2018-01-14] MEDS ORDERED: Ciprofloxacin 500 MG TAB ONE (13:35)
== END 2018-01-14 14:29 | disposition home or self-care (01) ==
LOC: ERS 11:29
DX: S09.90XA Unspecified injury of head, initial encounter (principal); S00.11XA Contusion of right eyelid and periocular area, initial encounter; S49.91XA Unspecified injury of right shoulder and upper arm, initial encounter; E87.1 Hypo-osmolality and hyponatremia; D69.6 Thrombocytopenia, unspecified; G40.909 Epilepsy, unspecified, not intractable, without status epilepticus; J44.9 Chronic obstructive pulmonary disease, unspecified; I10 Essential (primary) hypertension; Z86.73 Personal history of transient ischemic attack (TIA), and cerebral infarction without residual deficits; F41.9 Anxiety disorder, unspecified; F32.9 Major depressive disorder, single episode, unspecified; F17.210 Nicotine dependence, cigarettes, uncomplicated; W19.XXXA Unspecified fall, initial encounter
CPT/HCPCS: 36415; 51701; 70450; 70486; 71045; 72125; 80053; 80306; 80307; 81003; 81015; 82274; 82553; 83735; 84443; 84484; 85025; 93005; 96372; J1885

== ENCOUNTER 2018-01-22 18:29 | Inpatient (IN) | payer OTHER ==
--- NOTE | 2018-01-22 19:50 | CT ---
CT BRAIN NONCONTRAST: DATE: 01/22/2018 HISTORY: A 52-year-old female, status post acute head trauma from fall. COMPARISON: 01/14/2018 FINDINGS: No acute calvarial fracture. Again noted are the two left parietal bone old bur holes, one of them l ocated far anteriorly, close to the coronal suture and the other located more superiorly, laterally a nd posteriorly. There is a new finding of left frontal parietal subdural thin fluid collection (axia l image 17 of 32, series 2). This collection is measured to be approximately 0.8 cm thick. This cau ses a mild displacement of the adjacent left cerebral hemisphere, but otherwise, the diffuse brain at [facility] accommodates this new subdural fluid collection. The density of this fluid collection is simil ar to that of CSF. No hyperdense, acute intraaxial or extraaxial hemorrhage is visualized. Again noted is the somewhat large region of encephalomalacia and gliosis involving the right occipita l lobe and adjacent right posteromedial temporal lobe. Moderate dilation of the lateral and third ve ntricles, and mild to moderate dilation of the fourth ventricle is again noted. No midline shift. There is a moderate sized region of left parietal encephalomalacia and gliosis. There are chronic is chemic white matter changes. IMPRESSION: 1. A new, thin, left frontoparietal subdural hygroma. 2. Large old infarction in the right posterior cerebral artery territory. 4. Moderate sized old infarction in the left parietal lobe. 5. Diffuse brain parenchymal atrophy and chronic ischemic white matter changes. 6. No acute intracranial hemorrhage identified. 7. Recommend followup. NIKKI Hendricks POS: JEFERSON
[2018-01-22 19:55] LABS: #Basophils 0.1 thou/uL (0.0-0.2); #Eosinphils 0.3 thou/uL (0.0-0.7); #Lymphocytes 2.8 thou/uL (1.20-3.40); #Monocytes 1.3 thou/uL (0.11-0.59); #Neutrophils 10.1 thou/uL (1.40-6.50); %Basophils 0.8 % (0.0-1.0); %Eosinophils 1.7 % (0.0-10.0); %Lymphocytes 18.9 % (21.0-51.0); %Monocytes 9.2 % (0.0-10.0); %Neutrophils 69.3 % (42.0-75.0); Hemoglobin 13.2 g/dL (12.0-16.0); Mean Corpuscular HGB CONC 34.6 g/dL (32.0-36.0); Mean Corpuscular Hemoglobin 32.2 pg (27.0-31.0); Mean Corpuscular Volume 93.3 fl (81.0-99.0); Mean Platelet Volume 6.6 fL (7.4-10.4); Platelet Count 161 thou/uL (130-400); RBC Distribution Width 14.7 % (11.5-14.5); White Blood Cell (WBC) Count 14.5 thou/uL (4.8-10.8)
[2018-01-22 20:17] LABS: ALT (SGPT) 13 U/L (8-55); AST (SGOT) 22 U/L (5-34); Albumin 4.2 g/dL (3.5-5.0); Alkaline Phosphatase 106 U/L (40-150); Anion Gap 16 mmol/L (10-20); BUN (Urea Nitrogen) Less than 4 mg/dL (7.0-18.7); Bilirubin, Total 0.4 mg/dL (0.2-1.2); Calc. Creatinine Clearance 0 mL/min (70-130); Calcium 9.4 mg/dL (7.8-10.44); Carbon Dioxide 20 mmol/L (22-29); Chloride 94 mmol/L (98-107); Estimated GFR-MDRD Greater than 90; Globulin 2.7 g/dL (2.4-3.5); Glucose 103 mg/dL (70-105); Potassium 3.4 mmol/L (3.5-5.1); Protein, Total 6.9 g/dL (6.0-8.3); Sodium 127 mmol/L (136-145)
[2018-01-22 20:22] LABS: Troponin I Less than 0.010 ng/mL (< 0.028)
[2018-01-22 20:25] LABS: Bilirubin Negative (Negative); Blood, Urine Negative (Negative); Clarity CLEAR (Clear); Glucose, Urine (Dipstick) Negative (Negative); Leukocyte Moderate (Negative); Nitrite Negative (Negative); Protein, Urine (Dipstick) Negative (Neg-Trace); Urobilinogen 0.2 mg/dL (0.2-1.0)
[2018-01-22 20:27] LABS: Bacteria/HPF 2+ HPF (None Seen); Hyaline Casts/LPF 4-6 HYALINE CAST LPF (0-3 Hyaline); Squamous Epithelial None Seen HPF (0-3)
[2018-01-22] MEDS ORDERED: Ondansetron ODT 8 MG TAB ONE (20:31)
[2018-01-22 20:35] LABS: Amphetamine Not Detected (NotDetected); Barbiturates Screen Detected (NotDetected); Benzodiazepine Screen Not Detected (NotDetected); Cocaine Metabolite Screen Not Detected (NotDetected); Medtox Control Line Valid? VALID (VALID); Medtox Reader # READER 1; Methadone Not Detected (NotDetected); Methamphetamine Not Detected (NotDetected); Opiate Screen Not Detected (NotDetected); Oxycodone Screen Not Detected (NotDetected); Phencyclidine (PCP) Not Detected (NotDetected); THC/Cannabinoid Screen Not Detected (NotDetected); Tricyclic Screen Not Detected (NotDetected)
[2018-01-22 20:41] LABS: RBC/HPF 0-3 HPF (0-3)
[2018-01-22] MEDS ORDERED: cefTRIAXone\\ROCEPHIN 1 GM VIAL ONE (23:07)
[2018-01-22] MEDS ORDERED: Ondansetron ODT 4 MG TAB PO PRN (23:50)
[2018-01-22] MEDS ORDERED: HYDROcodone/Acetaminophen 5/325 mg Tablet PO PRN (23:50)
[2018-01-22] MEDS ORDERED: Acetaminophen 325 MG TAB PO PRN (23:50)
[2018-01-23] MEDS: Sodium Chloride 0.9% 1,000 ML IV SCH ×3 (00:55→22:24)
[2018-01-23] MEDS ORDERED: traZODone HCl 50 MG TAB PO PRN (02:20)
[2018-01-23] MEDS ORDERED: Lorazepam 2 MG/ML VIAL SLOW IVP SCH (02:30)
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
[2018-01-23 05:22] LABS: #Lymphocytes 1.4 thou/uL (1.20-3.40); #Monocytes 0.6 thou/uL (0.11-0.59); #Neutrophils 5.9 thou/uL (1.40-6.50); %Basophils 0.3 % (0.0-1.0); %Eosinophils 0.5 % (0.0-10.0); %Lymphocytes 17.7 % (21.0-51.0); %Monocytes 7.1 % (0.0-10.0); %Neutrophils 74.4 % (42.0-75.0); Hemoglobin 11.8 g/dL (12.0-16.0); Mean Corpuscular HGB CONC 34.8 g/dL (32.0-36.0); Mean Corpuscular Hemoglobin 32.6 pg (27.0-31.0); Mean Corpuscular Volume 93.7 fl (81.0-99.0); Mean Platelet Volume 6.6 fL (7.4-10.4); Platelet Count 153 thou/uL (130-400); RBC Distribution Width 14.6 % (11.5-14.5); Red Blood Cell (RBC) Count 3.62 mill/uL (4.20-5.40); White Blood Cell (WBC) Count 7.9 thou/uL (4.8-10.8)
[2018-01-23 05:38] LABS: Anion Gap 15 mmol/L (10-20); BUN (Urea Nitrogen) 4 mg/dL (7.0-18.7); Calc. Creatinine Clearance 83 mL/min (70-130); Calcium 8.5 mg/dL (7.8-10.44); Carbon Dioxide 23 mmol/L (22-29); Chloride 96 mmol/L (98-107); Estimated GFR-MDRD Greater than 90; Glucose 98 mg/dL (70-105); Potassium 3.8 mmol/L (3.5-5.1); Sodium 130 mmol/L (136-145)
[2018-01-23] MEDS: Aztreonam 1 GM in Sodium Chloride 0.9% 100 ML IVPB SCH ×2 (08:24→22:33)
[2018-01-23] MEDS: levETIRAcetam In NaCl (Iso-Os) 1,500 MG in Premix Bag 1 BAG IVPB SCH ×2 (08:25→22:23)
[2018-01-23] MEDS ORDERED: levETIRAcetam 500 MG TAB PO SCH (09:00)
[2018-01-23] MEDS ORDERED: Non-Formulary Item 1 EACH (Cetirizine Hcl [Zyrtec] 10 MG) PO SCH (09:00)
--- NOTE | 2018-01-23 09:33 | PDOC.PN ---
- Subjective Encounter Start Date: 01/23/18 Encounter Start Time: 11:00 Subjective: Patient not answering questions or following commands right now, but does -: intermittently call out for her MPOA. This is her typical baseline per -: nursing who have cared for her before. - Objective Resuscitation Status: Resuscitation Status FULL:Full Resuscitation MAR Reviewed: Yes Vital Signs & Weight: Vital Signs (12 hours) Temp Pulse Resp BP Pulse Ox 01/23/18 08:15 99.5 F 98 16 01/23/18 07:55 99.5 F 98 16 185/99 H 96 01/23/18 04:00 100.6 F H 94 18 128/73 95 01/22/18 23:50 98.9 F 88 20 160/91 H 98 Result Diagrams: 01/23/18 04:57 01/23/18 04:57 Phys Exam - Physical Examination Constitutional: NAD HEENT: moist MMs Respiratory: no wheezing, no rales, no rhonchi Cardiovascular: RRR, no significant murmur Gastrointestinal: soft, positive bowel sounds Neurological: moves all 4 limbs Deviation from normal: opens eyes but not answer my questions right now Dx/Plan (1) Sepsis Code(s): A41.9 - SEPSIS, UNSPECIFIED ORGANISM Status: Acute Comment: present on admission, fever and leukocytosis with UTI, on aztreonam (2) UTI (urinary tract infection) Status: Acute Comment: culture pending (3) Acute metabolic encephalopathy Code(s): G93.41 - METABOLIC ENCEPHALOPATHY Status: Acute (4) Vascular dementia Code(s): F01.50 - VASCULAR DEMENTIA WITHOUT BEHAVIORAL DISTURBANCE Status: Chronic Qualifiers: Dementia behavioral disturbance: with behavioral disturbance Qualified Code (s): F01.51 - Vascular dementia with behavioral disturbance (5) H/O: CVA (cerebrovascular accident) Code(s): Z86.73 - PRSNL HX OF TIA (TIA), AND CEREB INFRC W/O RESID DEFICITS Status: Chronic (6) HTN (hypertension) Code(s): I10 - ESSENTIAL (PRIMARY) HYPERTENSION Status: Chronic Qualifiers: Hypertension type: essential hypertension Qualified Code(s): I10 - Essential (primary) hypertension Comment: uncontrolled, resume home BP meds (7) Anxiety and depression Code(s): F41.9 - ANXIETY DISORDER, UNSPECIFIED; F32.9 - MAJOR DEPRESSIVE DISORDER, SINGLE EPISODE, UNSPECIFIED Status: Chronic (8) Bipolar 1 disorder Code(s): F31.9 - BIPOLAR DISORDER, UNSPECIFIED Status: Chronic (9) Seizure disorder Code(s): G40.909 - EPILEPSY, UNSP, NOT INTRACTABLE, WITHOUT STATUS EPILEPTICUS Status: Chronic Comment: continue antiepileptics (10) Subdural hygroma Code(s): D18.1 - LYMPHANGIOMA, ANY SITE Status: Acute Comment: left parietal , 0.8cm, no neurosurgery intervention needed - Plan cont current plan of care, continue antibiotics, PT/OT, DVT proph w/SCDs Switch to inpatient due to need for IV anx and UTI. Await cultures. Case -: management to discuss dispo with MPOA. * . - Discharge Day Encounter end time: 11:15
[2018-01-23] MEDS: Amlodipine 10 MG TAB PO SCH (10:01)
[2018-01-23] MEDS: risperiDONE 1 MG TAB PO SCH ×2 (10:02→22:25)
[2018-01-23] MEDS: OXcarbazepine 300 MG TAB PO SCH ×2 (10:02→22:24)
[2018-01-23] MEDS: Famotidine 20 MG TAB PO SCH ×2 (10:02→22:24)
[2018-01-23] MEDS: Loratadine 10 MG TAB PO SCH (10:02)
[2018-01-23] MEDS: Pravastatin Sodium 40 MG TAB PO SCH ×2 (10:02→22:25)
[2018-01-23] MEDS: Docusate 100 MG CAP PO SCH ×2 (10:02→22:24)
[2018-01-23] MEDS: Losartan 25 MG TAB PO SCH (10:02)
[2018-01-23] MEDS: Sodium Chloride 1 GM TAB PO SCH ×2 (10:02→22:25)
[2018-01-23] MEDS: Valproic Acid 250 MG CAP PO SCH ×2 (10:03→22:25)
[2018-01-23] MEDS: Acetaminophen 650 MG Suppository PR PRN (13:34)
[2018-01-24] MEDS: hydrALAZINE 20 MG/ML VIAL SLOW IVP PRN ×2 (00:12→08:35)
[2018-01-24] MEDS: Sodium Chloride 0.9% 1,000 ML IV SCH ×2 (03:13→15:22)
[2018-01-24] MEDS: levETIRAcetam In NaCl (Iso-Os) 1,500 MG in Premix Bag 1 BAG IVPB SCH ×2 (08:32→23:20)
[2018-01-24] MEDS: Aztreonam 1 GM in Sodium Chloride 0.9% 100 ML IVPB SCH (08:33)
--- NOTE | 2018-01-24 09:05 | PDOC.PN ---
- Subjective Encounter Start Date: 01/24/18 Encounter Start Time: 10:30 -: non-verbal Subjective: Patient was babbling incoherently yesterday. Not vocalizing at all -: today. Failed swallow eval with ST. Spoke with MPOA and she reports this -: is not normal for her, only happens with previous strokes. - Objective Resuscitation Status: Resuscitation Status DNR:Do Not Resuscitate MAR Reviewed: Yes Vital Signs & Weight: Vital Signs (12 hours) Temp Pulse Resp BP BP Pulse Ox 01/24/18 08:35 91 190/89 H 01/24/18 08:00 98.7 F 89 16 190/89 H 96 01/24/18 03:58 98.6 F 83 20 153/78 H 97 01/24/18 00:12 78 181/95 H 01/23/18 23:57 97.4 F L 78 20 181/95 H 97 I&O: 01/23/18 01/24/18 01/25/18 06:59 06:59 06:59 Intake Total 1990 Balance 1990 Result Diagrams: 01/23/18 04:57 01/23/18 04:57 Phys Exam - Physical Examination Constitutional: NAD HEENT: moist MMs Respiratory: no wheezing, no rales, no rhonchi Cardiovascular: RRR, no significant murmur Gastrointestinal: soft, positive bowel sounds Musculoskeletal: no edema Neurological: moves all 4 limbs Deviation from normal: opens eyes spontaneously but not to stim, no following commands, no words Dx/Plan (1) Encephalopathy acute Code(s): G93.40 - ENCEPHALOPATHY, UNSPECIFIED Status: Acute Comment: Not improving with treatment for UTI. Suspect possibility of recurrent stroke. Will obtain MRI. (2) Sepsis Code(s): A41.9 - SEPSIS, UNSPECIFIED ORGANISM Status: Acute Comment: present on admission, fever and leukocytosis with UTI, on aztreonam (3) UTI (urinary tract infection) Status: Acute Comment: culture pending (4) Acute metabolic encephalopathy Code(s): G93.41 - METABOLIC ENCEPHALOPATHY Status: Acute (5) Vascular dementia Code(s): F01.50 - VASCULAR DEMENTIA WITHOUT BEHAVIORAL DISTURBANCE Status: Chronic Qualifiers: Dementia behavioral disturbance: with behavioral disturbance Qualified Code (s): F01.51 - Vascular dementia with behavioral disturbance (6) H/O: CVA (cerebrovascular accident) Code(s): Z86.73 - PRSNL HX OF TIA (TIA), AND CEREB INFRC W/O RESID DEFICITS Status: Chronic (7) HTN (hypertension) Code(s): I10 - ESSENTIAL (PRIMARY) HYPERTENSION Status: Chronic Qualifiers: Hypertension type: essential hypertension Qualified Code(s): I10 - Essential (primary) hypertension Comment: uncontrolled, resume home BP meds (8) Anxiety and depression Code(s): F41.9 - ANXIETY DISORDER, UNSPECIFIED; F32.9 - MAJOR DEPRESSIVE DISORDER, SINGLE EPISODE, UNSPECIFIED Status: Chronic (9) Bipolar 1 disorder Code(s): F31.9 - BIPOLAR DISORDER, UNSPECIFIED Status: Chronic (10) Seizure disorder Code(s): G40.909 - EPILEPSY, UNSP, NOT INTRACTABLE, WITHOUT STATUS EPILEPTICUS Status: Chronic Comment: continue antiepileptics (11) Subdural hygroma Code(s): D18.1 - LYMPHANGIOMA, ANY SITE Status: Acute Comment: left parietal , 0.8cm, no neurosurgery intervention needed - Plan cont current plan of care, continue antibiotics, PT/OT, DVT proph w/SCDs Urine culture still pending * . - Discharge Day Encounter end time: 11:50
[2018-01-24] MEDS: Amlodipine 10 MG TAB PO SCH (11:25)
[2018-01-24] MEDS: Docusate 100 MG CAP PO SCH ×2 (11:25→21:20)
[2018-01-24] MEDS: Sodium Chloride 1 GM TAB PO SCH ×2 (11:26→21:22)
[2018-01-24] MEDS: Pravastatin Sodium 40 MG TAB PO SCH ×2 (11:26→21:21)
[2018-01-24] MEDS: Valproic Acid 250 MG CAP PO SCH ×2 (11:26→21:22)
[2018-01-24] MEDS: risperiDONE 1 MG TAB PO SCH ×2 (11:26→21:21)
[2018-01-24] MEDS: Loratadine 10 MG TAB PO SCH (11:26)
[2018-01-24] MEDS: Losartan 25 MG TAB PO SCH (11:26)
[2018-01-24] MEDS: Famotidine 20 MG TAB PO SCH ×2 (11:26→21:21)
[2018-01-24] MEDS: OXcarbazepine 300 MG TAB PO SCH ×2 (11:26→21:21)
[2018-01-24] MEDS: Lorazepam 2 MG/ML VIAL SLOW IVP PRN (11:35)
--- NOTE | 2018-01-24 12:51 | MRI ---
MRI BRAIN WITHOUT CONTRAST: HISTORY: Altered mental status with possible new stroke. COMPARISON: 08/22/2016 TECHNIQUE: Multiplanar, multisequence MR images are obtained of the brain without contrast. FINDINGS: This exam is very limited secondary to significant motion artifact during the examination. There is encephalomalacia in the right parietal occipital region from prior infarction. There are scattered h ypodensities in the subcortical and periventricular white matter, likely secondary to small vessel is chemic disease. No restricted diffusion is seen to suggest an acute infarction. Significant cerebral atrophy is seen. There is ex vacuo dilatation of the lateral ventricles. There is no evidence of hydrocephalus, intracranial hemorrhage, or extraaxial fluid collection. The expec lima flow voids are intact. The corpus callosum, pituitary, and craniocervical junction are unremarka ble. The calvarium and overlying soft tissues are unremarkable. The visualized paranasal sinuses and mast oid air cells are well aerated. IMPRESSION: 1. No evidence of acute intracranial abnormality on this limited exam. 2. Cerebral atrophy and encephalomalacia in the right parietal occipital region. POS: JEFERSON
--- NOTE | 2018-01-24 19:28 | RAD ---
RADIOGRAPH PELVIS AND LEFT HIP 3 VIEWS: 01/24/18 HISTORY: 52-year-old female with traumatic left hip pain after fall. FINDINGS: Mildly displaced fracture deformity is identified involving the right inferior ischial ramus, but thi s is probably old. No displaced, definitely acute fracture is identified. There are no degenerative c hanges of the bilateral hips. There is diffuse osteopenia. Large amount of bowel gas overlies the pe lvis. Bilateral pedicle screws and vertical interlocking rods, at L5 and S1. IMPRESSION: 1. Although no acute fracture is identified, the osteopenia and overlying bowel gas could obscur e a fracture. Therefore, if symptoms do not improve in the next several days, noncontrast MRI of the pelvis and hip would be the most sensitive modality to detect occult fracture. 2. Otherwise normal left hip. 3. Bilateral pedicle screws at L5 and S1. 4. Old right inferior ramus fracture. POS: [facility]
[2018-01-24] MEDS ORDERED: cefTRIAXone\\ROCEPHIN 2 GM in Sodium Chloride 0.9% 100 ML IVPB SCH (20:00)
--- NOTE | 2018-01-24 20:06 | RAD ---
LEFT RIB SERIES: 01/24/18 PROVIDED CLINICAL HISTORY: Left sided rib pain status post injury. FINDINGS: There is no evidence for a displaced left sided rib fracture, pleural fluid or pneumothorax. IMPRESSION: As above. POS: RENARD
--- NOTE | 2018-01-24 20:13 | RAD ---
RADIOGRAPH CHEST 1 VIEW: Supine DATE: 01/24/18 TIME: 7:04 p.m. HISTORY: 52-year-old female status post acute chest trauma from fall. FINDINGS: There is no air space density or pulmonary edema. The lateral costophrenic angles are sharp. Supine positioning makes this study insensitive for pneumothorax detection. There is an old, displaced, heal ed left mid clavicular fracture deformity. There is diffuse osteopenia. No cardiomegaly. IMPRESSION: No acute pulmonary findings. christopher [] POS: JEFERSON
[2018-01-24] MEDS ORDERED: Vancomycin HCl 1 GM in Premix Bag 1 BAG IVPB SCH (21:00)
[2018-01-24] MEDS: Labetalol 100 MG/20 ML MDV SLOW IVP PRN (21:30)
[2018-01-24] MEDS: Vancomycin HCl 750 MG in Sodium Chloride 0.9% 250 ML 250 ML IVPB SCH (21:38)
[2018-01-25] MEDS: Labetalol 100 MG/20 ML MDV SLOW IVP PRN ×2 (00:21→08:48)
--- NOTE | 2018-01-25 01:49 | CON ---
DATE OF CONSULTATION: 01/24/2018 REFERRING PHYSICIAN: Dr. Carrillo Rae. REASON FOR CONSULTATION: Altered mental status. HISTORY OF PRESENT ILLNESS: Ms. Hart is a 52-year-old female, well known to me from her previous admissions with history of subarachnoid hemorrhage as well as subdural hemorrhage and seizure disorder, presented with the acute changes in mentation. History is very limited as patient is unable to provide and there are no family member present at bedside. The patient was admitted to [facility] in October of this year for recurrent seizures. At that time, her symptoms were thought to be secondary to underlying psychiatric condition. She was discharged to rehab. While in rehab, she refused to stay inside the rehab and went home against medical advice. She was having increasing difficulty with her gait and balance and had fell several times. She was advised not to walk independently and use walker at all times; however, she was noncompliant and refused to use the walker and resulted in multiple falls. She was brought in by her roommate as she seemed to be very confused and delirious. She was not recognizing anyone at that time. This concerned the patient's family and brought her to the [facility]. According to the nurse assisting of the patient, patient remains nonverbal and not cooperative during the examination. PAST MEDICAL HISTORY: Obtained and there are as dictated in H and P note done by Dr. Raymond Martinez. PAST SURGICAL HISTORY: Obtained and there are as dictated in H and P note done by Dr. Raymond Martinez. FAMILY HISTORY: Obtained and there are as dictated in H and P note done by Dr. Raymond Martinez. SOCIAL HISTORY: Obtained and there are as dictated in H and P note done by Dr. Raymond Martinez. CURRENT MEDICATIONS: Obtained and there are as dictated in H and P note done by Dr. Raymond Martinez. ALLERGIES: Obtained and there are as dictated in H and P note done by Dr. Raymond Martinez. REVIEW OF SYSTEMS: As mentioned above in the HPI, otherwise negative. PHYSICAL EXAMINATION: VITAL SIGNS: Blood pressure of 168/88, pulse of 86, temperature of 97.8, respirations of 16, and O2 sats of 96% on room air. GENERAL: Confused and disoriented female. RESPIRATORY: Clear to auscultation bilaterally. CARDIOVASCULAR: Regular rate and rhythm. NEUROLOGIC: Mental status: The patient is awake, but confused and disoriented. She is nonresponsive to verbal stimuli. Speech and language: Nonverbal. She is mute. Cranial nerves: Pupils are 3 mm and reactive. Visual field test is difficult to perform as she has her eyes closed. Face appears symmetric. Motor exam showed normal tone and bulk. She spontaneously moves both upper and lower extremities; however, no response to commands. LABORATORY DATA: Labs are reviewed, which included CBC, CMP, urine drug screen and urinalysis, which is significant for hemoglobin of 11.8, hematocrit of 33.9. Sodium of 130. Urinalysis showing greater than 50 to too numerous to count wbc's, moderate leukocyte esterase, otherwise negative. IMAGING STUDIES: MRI brain without contrast was reviewed, which showed no acute intracranial abnormality. IMPRESSION: 1. Altered mental status, likely toxic metabolic encephalopathy. 2. Urinary tract infection. ASSESSMENT AND PLAN: Ms. Hart is a pleasant 52-year-old female, who presented with changes in mentation. Her urinalysis did show mild urinary tract infection. At this time, I will recommend treating her urinary tract infection. I would also recommend continuing current anti-epileptic medications. Continue supportive care. [facility]
[2018-01-25 05:32] LABS: #Basophils 0.1 thou/uL (0.0-0.2); #Eosinphils 0.1 thou/uL (0.0-0.7); #Lymphocytes 2.2 thou/uL (1.20-3.40); #Monocytes 0.9 thou/uL (0.11-0.59); #Neutrophils 6.7 thou/uL (1.40-6.50); %Basophils 0.9 % (0.0-1.0); %Eosinophils 1.2 % (0.0-10.0); %Lymphocytes 21.6 % (21.0-51.0); %Monocytes 8.8 % (0.0-10.0); %Neutrophils 67.5 % (42.0-75.0); Hemoglobin 10.3 g/dL (12.0-16.0); Mean Corpuscular HGB CONC 33.3 g/dL (32.0-36.0); Mean Corpuscular Hemoglobin 32.1 pg (27.0-31.0); Mean Corpuscular Volume 96.4 fL (78.0-98.0); Mean Platelet Volume 6.9 fL (7.4-10.4); Platelet Count 141 thou/uL (130-400); RBC Distribution Width 14.8 % (11.5-14.5); Red Blood Cell (RBC) Count 3.21 mill/uL (4.20-5.40)
[2018-01-25 05:36] LABS: Anion Gap 16 mmol/L (10-20); BUN (Urea Nitrogen) 4 mg/dL (7.0-18.7); Calc. Creatinine Clearance 80 mL/min (70-130); Calcium 8.3 mg/dL (7.8-10.44); Carbon Dioxide 19 mmol/L (22-29); Chloride 101 mmol/L (98-107); Estimated GFR-MDRD Greater than 90; Glucose 82 mg/dL (70-105); Potassium 3.2 mmol/L (3.5-5.1); Sodium 133 mmol/L (136-145)
[2018-01-25] MEDS: Sodium Chloride 0.9% 1,000 ML IV SCH ×2 (06:02→16:41)
[2018-01-25] MEDS: Vancomycin HCl 750 MG in Sodium Chloride 0.9% 250 ML 250 ML IVPB SCH (08:43)
[2018-01-25] MEDS: levETIRAcetam In NaCl (Iso-Os) 1,500 MG in Premix Bag 1 BAG IVPB SCH ×2 (08:43→23:49)
[2018-01-25] MEDS: Sodium Chloride 1 GM TAB PO SCH (08:44)
[2018-01-25] MEDS: Valproic Acid 250 MG CAP PO SCH (08:44)
[2018-01-25] MEDS: Docusate 100 MG CAP PO SCH (08:45)
[2018-01-25] MEDS: risperiDONE 1 MG TAB PO SCH (08:45)
[2018-01-25] MEDS: OXcarbazepine 300 MG TAB PO SCH (08:45)
[2018-01-25] MEDS: Loratadine 10 MG TAB PO SCH (08:45)
[2018-01-25] MEDS: Amlodipine 10 MG TAB PO SCH (08:45)
[2018-01-25] MEDS: Famotidine 20 MG TAB PO SCH (08:45)
[2018-01-25] MEDS: Losartan 25 MG TAB PO SCH (08:45)
[2018-01-25] MEDS: Pravastatin Sodium 40 MG TAB PO SCH (08:45)
[2018-01-25] MEDS ORDERED: Potassium Chloride 40 MEQ in Sodium Chloride 0.9% 250 ML 250 ML IVPB SCH (10:15)
[2018-01-25] MEDS ORDERED: Enalaprilat Dihydrate 1.25 MG/ML VIAL SLOW IVP SCH (12:00)
[2018-01-25] MEDS: Acetaminophen 650 MG Suppository PR PRN ×2 (12:37→21:34)
--- NOTE | 2018-01-25 14:21 | PDOC.PN ---
- Subjective Encounter Start Date: 01/25/18 Encounter Start Time: 14:19 Subjective: Stepmother in room.pt seen & examined.care discussed-reports H/O alcohal ab -: pt non verbal.Awake but does not follow commands -: tracks w eyes. - Objective Resuscitation Status: Resuscitation Status DNR:Do Not Resuscitate MAR Reviewed: Yes Vital Signs & Weight: Vital Signs (12 hours) Temp Pulse Resp BP BP Pulse Ox 01/25/18 12:00 101.7 F H 97 20 159/92 H 91 L 01/25/18 08:45 108 H 203/99 H 01/25/18 08:00 98.7 F 92 20 197/97 H 95 01/25/18 03:57 98.2 F 108 H 20 170/80 H 92 L Weight Weight 112 lb 14.4 oz I&O: 01/24/18 01/25/18 01/26/18 06:59 06:59 06:59 Intake Total 1990 2231 Balance 1990 2231 Result Diagrams: 01/25/18 04:38 01/25/18 04:38 Additional Labs: Accuchecks 01/25/18 01/25/18 01/24/18 05:35 00:33 21:11 POC Glucose 95 84 80 Microbiology 01/22/18 20:16 Urine Straight Catheter Urine Culture - Final Enterococcus faecalis 01/14/18 12:15 Stool - Pending Stool Occult Blood (GIANFRANCO) - Final Labs reviewed Phys Exam - Physical Examination Constitutional: NAD follows w eyes but smith snot talk or follow commands HEENT: PERRLA, moist MMs, sclera anicteric, oral pharynx no lesions Neck: no nodes, no JVD, supple, full ROM Respiratory: no wheezing, no rales, no rhonchi, clear to auscultation bilateral Cardiovascular: RRR, no significant murmur Gastrointestinal: soft, no distention, positive bowel sounds Musculoskeletal: no edema, pulses present keeps right arm flexed ,close to chest Deviation from normal: apperas confused,non conversant Skin: no rash Dx/Plan (1) Breakthrough seizure Code(s): G40.919 - EPILEPSY, UNSP, INTRACTABLE, WITHOUT STATUS EPILEPTICUS Status: Acute (2) Acute metabolic encephalopathy Code(s): G93.41 - METABOLIC ENCEPHALOPATHY Status: Acute (3) Sepsis Code(s): A41.9 - SEPSIS, UNSPECIFIED ORGANISM Status: Acute Comment: present on admission, fever and leukocytosis with UTI, on aztreonam (4) UTI (urinary tract infection) Status: Acute Comment: E.fecalis (5) Hypertensive urgency Code(s): I16.0 - HYPERTENSIVE URGENCY Status: Acute (6) Seizure disorder Code(s): G40.909 - EPILEPSY, UNSP, NOT INTRACTABLE, WITHOUT STATUS EPILEPTICUS Status: Chronic Comment: Po meds on hold (7) Hypokalemia Code(s): E87.6 - HYPOKALEMIA Status: Acute (8) Bipolar 1 disorder Code(s): F31.9 - BIPOLAR DISORDER, UNSPECIFIED Status: Chronic (9) H/O: CVA (cerebrovascular accident) Code(s): Z86.73 - PRSNL HX OF TIA (TIA), AND CEREB INFRC W/O RESID DEFICITS Status: Chronic (10) HTN (hypertension) Code(s): I10 - ESSENTIAL (PRIMARY) HYPERTENSION Status: Chronic Qualifiers: Hypertension type: essential hypertension Qualified Code(s): I10 - Essential (primary) hypertension Comment: uncontrolled, resume home BP meds (11) Vascular dementia Code(s): F01.50 - VASCULAR DEMENTIA WITHOUT BEHAVIORAL DISTURBANCE Status: Chronic Qualifiers: Dementia behavioral disturbance: with behavioral disturbance Qualified Code (s): F01.51 - Vascular dementia with behavioral disturbance (12) Hyponatremia Code(s): E87.1 - HYPO-OSMOLALITY AND HYPONATREMIA Status: Resolved - Plan plan discussed w/ family, continue antibiotics, PT/OT, out of bed/ambulate, DVT proph w/SCDs Breakthrough seizure this am.will add IV Depacone .cont IV keppra -: loading dose & then home dose IV BID.discussed w neurology -: pt failed swollow study per TACK MAKER.cont IVF. -: All PO meds on hold-will add IV antihypertensives for severe HTN today -: Persistant fever despite IV ABx.urine Cx shows sensistive enterococcus * .Blood Cx not obtained at admission-will add. * Changed to levaquin but pt allergic.will cont vancomycin for now,. * consut ID * am labs * MRI negative for Ac CVA * replace and recheck Potassium.check mag & replace if low. Review of Systems - Review of Systems Other: unavailable due to pt being non conversant - Medications/Allergies Allergies/Adverse Reactions: Allergies Allergy/AdvReac Type Severity Reaction Status Date / Time aspirin Allergy Intermediate Short of Verified 11/04/17 21:27 Breath meperidine HCl [From Demerol] Allergy Intermediate Swollen Verified 11/04/17 21: 27 Lips amoxicillin [Amoxicillin] Allergy Verified 11/04/17 21:27 levofloxacin [From Levaquin] Allergy Verified 01/23/18 00:10 Penicillins Allergy Verified 11/04/17 21:27 codeine AdvReac Mild Verified 11/04/17 21:27 Medications: Current Medications Acetaminophen (Tylenol) 650 mg PO Q4H PRN PRN Reason: Headache/Fever or Pain Acetaminophen (Tylenol) 650 mg ID Q6H PRN PRN Reason: Headache/Fever or Pain Last Admin: 01/25/18 12:37 Dose: 650 mg Hydrocodone Bitart/Acetaminophen ([place] 5/325) 1 tab PO Q4H PRN PRN Reason: Moderate Pain (4-6) Amlodipine Besylate (Norvasc) 10 mg PO DAILY [facility] Last Admin: 01/25/18 08:45 Dose: Not Given Docusate Sodium (Colace) 100 mg PO BID [facility] Last Admin: 01/25/18 08:45 Dose: Not Given Enalaprilat (Vasotec) 1.25 mg SLOW IVP Q6HR [facility] Famotidine (Pepcid) 20 mg PO BID [facility] Last Admin: 01/25/18 08:45 Dose: Not Given Hydralazine HCl (Apresoline) 10 mg SLOW IVP Q4H PRN PRN Reason: SBP>180 OR DBP>100 Last Admin: 01/24/18 08:35 Dose: 10 mg Sodium Chloride (Normal Saline 0.9%) 1,000 mls @ 100 mls/hr IV .Q10H [facility] Last Admin: 01/25/18 06:02 Dose: 1,000 mls Levetiracetam 1,500 mg/ Device 100 mls @ 200 mls/hr IVPB BID [facility] Last Admin: 01/25/18 08:43 Dose: 100 mls Levofloxacin 500 mg/ Device 100 mls @ 100 mls/hr IVPB 1000 [facility] Last Admin: 01/25/18 11:48 Dose: 100 mls Valproic Acid 1,000 mg/ Sodium (Chloride) 110 mls @ 100 mls/hr IVPB NOW [facility] Stop: 01/25/18 16:30 Valproic Acid 500 mg/ Sodium (Chloride) 105 mls @ 100 mls/hr IVPB BID [facility] Labetalol HCl (Normodyne) 10 mg SLOW IVP Q1H PRN PRN Reason: SBP>180 DBP>100 HOLD HR<60 Last Admin: 01/25/18 08:48 Dose: 10 mg Lactulose (Lactulose) 20 gm PO DAILYPRN PRN PRN Reason: Constipation Loratadine (Claritin) 10 mg PO DAILY [facility] Last Admin: 01/25/18 08:45 Dose: Not Given Lorazepam (Ativan) 1 mg SLOW IVP Q4H PRN PRN Reason: Anxiety/Agitation Last Admin: 01/24/18 11:35 Dose: 1 mg Losartan Potassium (Cozaar) 100 mg PO DAILY [facility] Last Admin: 01/25/18 08:45 Dose: Not Given Ondansetron HCl (Zofran Odt) 4 mg PO Q6H PRN PRN Reason: Nausea/Vomiting Oxcarbazepine (Trileptal) 600 mg PO BID [facility] Last Admin: 01/25/18 08:45 Dose: Not Given Phenytoin Sodium (Dilantin Er) 300 mg PO HS [facility] Last Admin: 01/24/18 21:21 Dose: Not Given Pravastatin Sodium (Pravachol) 40 mg PO BID [facility] Last Admin: 01/25/18 08:45 Dose: Not Given Risperidone (Risperidone) 1 mg PO BID [facility] Last Admin: 01/25/18 08:45 Dose: Not Given Sodium Chloride (Flush - Normal Saline) 10 ml IVF Q12HR [facility] Last Admin: 01/25/18 08:44 Dose: Not Given Sodium Chloride (Flush - Normal Saline) 10 ml IVF PRN PRN PRN Reason: Saline Flush Sodium Chloride (Sodium Chloride) 1 gm PO BID [facility] Last Admin: 01/25/18 08:44 Dose: Not Given Trazodone HCl (Desyrel) 50 mg PO HSPRN PRN PRN Reason: Insomnia Valproic Acid (Depakene) 500 mg PO BID [facility] Last Admin: 01/25/18 08:44 Dose: Not Given
[2018-01-25] MEDS ORDERED: Valproate Sodium 1,000 MG in Sodium Chloride 0.9% 100 ML IVPB SCH (14:30)
[2018-01-25] MEDS ORDERED: Vancomycin HCl 750 MG in Sodium Chloride 0.9% 250 ML 250 ML IVPB SCH (15:00)
[2018-01-25] MEDS ORDERED: Lorazepam 2 MG/ML VIAL SLOW IVP SCH (19:00)
[2018-01-25] MEDS ORDERED: Fosphenytoin Sodium 1,500 MG in Sodium Chloride 0.9% 50 ML IVPB SCH (19:00)
--- NOTE | 2018-01-25 19:41 | PDOC.EVN ---
Event Note - Event Note Event Note: discussed w neurology .Pt. has abnl EEG,? Status epilepticus. Will trasnfer to for continuos EEG monitoring.Started on Dilantin and prn ativan
[2018-01-25] MEDS ORDERED: Vancomycin HCl 1 GM in Premix Bag 1 BAG IVPB SCH (21:00)
[2018-01-25] MEDS ORDERED: Valproate Sodium 500 MG in Sodium Chloride 0.9% 100 ML IVPB SCH (21:00)
[2018-01-25] MEDS: cefTRIAXone\\ROCEPHIN 1 GM in Sodium Chloride 0.9% 100 ML IVPB SCH (21:34)
[2018-01-25] MEDS ORDERED: Clindamycin/D5W 600 MG in Premix Bag 1 BAG IVPB SCH (22:00)
[2018-01-26] MEDS: Enalaprilat Dihydrate 1.25 MG/ML VIAL SLOW IVP SCH ×5 (00:03→22:30)
[2018-01-26] MEDS: Lorazepam 2 MG/ML VIAL SLOW IVP PRN (00:10)
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
[2018-01-26] MEDS: Sodium Chloride 0.9% 1,000 ML IV SCH ×3 (03:20→16:09)
[2018-01-26 05:34] LABS: #Basophils 0.1 thou/uL (0.0-0.2); #Eosinphils 0.1 thou/uL (0.0-0.7); #Lymphocytes 2.4 thou/uL (1.20-3.40); #Monocytes 1.3 thou/uL (0.11-0.59); #Neutrophils 8.7 thou/uL (1.40-6.50); %Basophils 0.7 % (0.0-1.0); %Eosinophils 0.5 % (0.0-10.0); %Lymphocytes 19.2 % (21.0-51.0); %Neutrophils 69.6 % (42.0-75.0); Hemoglobin 11.9 g/dL (12.0-16.0); Mean Corpuscular HGB CONC 34.1 g/dL (32.0-36.0); Mean Corpuscular Hemoglobin 32.6 pg (27.0-31.0); Mean Corpuscular Volume 95.5 fL (78.0-98.0); Mean Platelet Volume 6.9 fL (7.4-10.4); Platelet Count 139 thou/uL (130-400); RBC Distribution Width 15.1 % (11.5-14.5); Red Blood Cell (RBC) Count 3.67 mill/uL (4.20-5.40); White Blood Cell (WBC) Count 12.5 thou/uL (4.8-10.8)
[2018-01-26 05:59] LABS: Anion Gap 15 mmol/L (10-20); BUN (Urea Nitrogen) 5 mg/dL (7.0-18.7); Calc. Creatinine Clearance 85 mL/min (70-130); Calcium 8.5 mg/dL (7.8-10.44); Carbon Dioxide 25 mmol/L (22-29); Chloride 100 mmol/L (98-107); Estimated GFR-MDRD Greater than 90; Glucose 106 mg/dL (70-105); Sodium 137 mmol/L (136-145)
[2018-01-26 06:03] LABS: Potassium 2.9 mmol/L (3.5-5.1)
[2018-01-26] MEDS ORDERED: Potassium Chloride 20 MEQ in Premix Bag 1 BAG IVPB SCH (06:15)
[2018-01-26] MEDS: Clindamycin/D5W 600 MG in Premix Bag 1 BAG IVPB SCH ×2 (08:21→16:09)
[2018-01-26] MEDS ORDERED: Valproate Sodium 500 MG in Sodium Chloride 0.9% 100 ML IVPB SCH (09:00)
[2018-01-26] MEDS: levETIRAcetam In NaCl (Iso-Os) 1,500 MG in Premix Bag 1 BAG IVPB SCH ×2 (09:18→20:55)
[2018-01-26] MEDS ORDERED: Valproate Sodium 1,000 MG in Sodium Chloride 0.9% 100 ML IVPB SCH (10:00)
--- NOTE | 2018-01-26 11:52 | PDOC.PN ---
- Subjective Encounter Start Date: 01/26/18 Encounter Start Time: 11:50 Subjective: pt remains non conversant,but more awake & alert today -: had episodes of seizures last evening.EEG done - Objective Resuscitation Status: Resuscitation Status DNR:Do Not Resuscitate MAR Reviewed: Yes Vital Signs & Weight: Vital Signs (12 hours) Temp Pulse Resp BP BP Pulse Ox 01/26/18 11:48 98.6 F 84 16 156/81 H 95 01/26/18 10:36 167/85 H 01/26/18 08:00 98.7 F 84 14 01/26/18 07:46 98.7 F 84 14 148/79 H 99 01/26/18 04:38 167/87 H 01/26/18 03:47 98.9 F 112 H 16 167/87 H 99 01/26/18 00:03 105/65 Weight Weight 102 lb 11.2 oz I&O: 01/25/18 01/26/18 01/27/18 06:59 06:59 06:59 Intake Total 2232 1450 Balance 2232 1450 Result Diagrams: 01/26/18 04:59 01/26/18 04:59 Additional Labs: Microbiology 01/22/18 20:16 Urine Straight Catheter Urine Culture - Final Enterococcus faecalis 01/14/18 12:15 Stool - Pending Stool Occult Blood (GIANFRANCO) - Final Phys Exam - Physical Examination Constitutional: NAD tracks w eyes but does not follow any commands HEENT: PERRLA, moist MMs, sclera anicteric, oral pharynx no lesions Neck: no nodes, no JVD, supple, full ROM Respiratory: no wheezing, no rales, no rhonchi, clear to auscultation bilateral Cardiovascular: RRR, no significant murmur, no rub Gastrointestinal: soft, non-tender, no distention, positive bowel sounds Musculoskeletal: no edema, pulses present Neurological: moves all 4 limbs Dx/Plan (1) Breakthrough seizure Code(s): G40.919 - EPILEPSY, UNSP, INTRACTABLE, WITHOUT STATUS EPILEPTICUS Status: Acute Comment: Concern for Status epilepticus (2) Acute metabolic encephalopathy Code(s): G93.41 - METABOLIC ENCEPHALOPATHY Status: Acute Comment: Likley due to seizures and UTI (3) Sepsis Code(s): A41.9 - SEPSIS, UNSPECIFIED ORGANISM Status: Acute Comment: present on admission, fever and leukocytosis with UTI,on Rocephin and clindamycin now (4) UTI (urinary tract infection) Status: Acute Comment: E.fecalis (5) Hypokalemia Code(s): E87.6 - HYPOKALEMIA Status: Acute (6) Hypertensive urgency Code(s): I16.0 - HYPERTENSIVE URGENCY Status: Resolved Comment: PO meds on hold.Cont IV vasotec (7) Seizure disorder Code(s): G40.909 - EPILEPSY, UNSP, NOT INTRACTABLE, WITHOUT STATUS EPILEPTICUS Status: Chronic Comment: Po meds on hold (8) Bipolar 1 disorder Code(s): F31.9 - BIPOLAR DISORDER, UNSPECIFIED Status: Chronic (9) H/O: CVA (cerebrovascular accident) Code(s): Z86.73 - PRSNL HX OF TIA (TIA), AND CEREB INFRC W/O RESID DEFICITS Status: Chronic (10) HTN (hypertension) Code(s): I10 - ESSENTIAL (PRIMARY) HYPERTENSION Status: Chronic Qualifiers: Hypertension type: essential hypertension Qualified Code(s): I10 - Essential (primary) hypertension Comment: uncontrolled, home BP meds on hold as pt not safe to swollow (11) Vascular dementia Code(s): F01.50 - VASCULAR DEMENTIA WITHOUT BEHAVIORAL DISTURBANCE Status: Chronic Qualifiers: Dementia behavioral disturbance: with behavioral disturbance Qualified Code (s): F01.51 - Vascular dementia with behavioral disturbance (12) Hyponatremia Code(s): E87.1 - HYPO-OSMOLALITY AND HYPONATREMIA Status: Resolved - Plan continue antibiotics, PT/OT, DVT proph w/SCDs Continues to have AMS likley due to background seizure activity -: cont keppra. Increase Valproic acid ,both IV. -: BP better. cont Vasotec and prn meds -: Remaisn NPO untill cleared by commissioned sales associate for safe swollo.cont IVF -: Cont Abx. follow final Cx results. no more fever for now. * .DNR * PCT following. * yas need Hospice discussion if remains in [place]. * am labs * replace and recheck Potassium /Mag Review of Systems - Review of Systems Other: can not be obtained as the pt is non conversant - Medications/Allergies Allergies/Adverse Reactions: Allergies Allergy/AdvReac Type Severity Reaction Status Date / Time aspirin Allergy Intermediate Short of Verified 11/04/17 21:27 Breath meperidine HCl [From Demerol] Allergy Intermediate Swollen Verified 11/04/17 21: 27 Lips amoxicillin [Amoxicillin] Allergy Verified 11/04/17 21:27 levofloxacin [From Levaquin] Allergy Verified 01/25/18 14:38 Penicillins Allergy Verified 11/04/17 21:27 codeine AdvReac Mild Verified 11/04/17 21:27 Medications: Current Medications Acetaminophen (Tylenol) 650 mg HI Q6H PRN PRN Reason: Headache/Fever or Pain Last Admin: 01/25/18 21:34 Dose: 650 mg Enalaprilat (Vasotec) 1.25 mg SLOW IVP 0400,1000,1600,2200 [facility] Last Admin: 01/26/18 10:36 Dose: 1.25 mg Hydralazine HCl (Apresoline) 10 mg SLOW IVP Q4H PRN PRN Reason: SBP>180 OR DBP>100 Last Admin: 01/24/18 08:35 Dose: 10 mg Sodium Chloride (Normal Saline 0.9%) 1,000 mls @ 100 mls/hr IV .Q10H [facility] Last Admin: 01/26/18 08:41 Dose: Not Given Levetiracetam 1,500 mg/ Device 100 mls @ 200 mls/hr IVPB BID [facility] Last Admin: 01/26/18 09:18 Dose: 100 mls Ceftriaxone Sodium 1 gm/ (Sodium Chloride) 100 mls @ 200 mls/hr IVPB Q24HR [facility] Last Admin: 01/25/18 21:34 Dose: 100 mls Clindamycin Phosphate/Dextrose (600 mg/ Device) 50 mls @ 100 mls/hr IVPB 0100, 0900,1700 [facility] Last Admin: 01/26/18 08:21 Dose: 50 mls Valproic Acid 1,000 mg/ Sodium (Chloride) 110 mls @ 100 mls/hr IVPB BID [facility] Valproic Acid 1,000 mg/ Sodium (Chloride) 110 mls @ 100 mls/hr IVPB NOW [facility] Stop: 01/26/18 12:00 Last Admin: 01/26/18 10:36 Dose: 110 mls Labetalol HCl (Normodyne) 10 mg SLOW IVP Q1H PRN PRN Reason: SBP>180 DBP>100 HOLD HR<60 Last Admin: 01/25/18 08:48 Dose: 10 mg Lorazepam (Ativan) 1 mg SLOW IVP Q4H PRN PRN Reason: Anxiety/Agitation Last Admin: 01/26/18 00:10 Dose: 1 mg Sodium Chloride (Flush - Normal Saline) 10 ml IVF Q12HR [facility] Last Admin: 01/26/18 09:20 Dose: 10 ml Sodium Chloride (Flush - Normal Saline) 10 ml IVF PRN PRN PRN Reason: Saline Flush
[2018-01-26] MEDS: cefTRIAXone\\ROCEPHIN 1 GM in Sodium Chloride 0.9% 100 ML IVPB SCH (17:22)
[2018-01-26] MEDS: Valproate Sodium 1,000 MG in Sodium Chloride 0.9% 100 ML IVPB SCH (22:31)
[2018-01-27] MEDS: Clindamycin/D5W 600 MG in Premix Bag 1 BAG IVPB SCH ×3 (01:26→16:16)
[2018-01-27] MEDS: Enalaprilat Dihydrate 1.25 MG/ML VIAL SLOW IVP SCH ×4 (05:18→22:51)
[2018-01-27] MEDS: Sodium Chloride 0.9% 1,000 ML IV SCH (05:25)
--- NOTE | 2018-01-27 05:47 | PRG ---
DATE OF SERVICE: 01/26/2018 SUBJECTIVE: Ms. Hart is a 52-year-old female who was noted to be in status epilepticus o n yesterday. She was loaded with fosphenytoin 15 mg along with Ativan 2 mg IV, which did subside the seizures. According to the nurse, the patient has not had any convulsions over the past 12 hours. She has been more alert today, but still disoriented and confused. She is not following any commands . She has a minimal verbalization. She had taken of wires of the EEG, the wire which was placed on yesterday for continuous EEG monitoring. OBJECTIVE: VITAL SIGNS: Blood pressure of 161/82, pulse of 78, temperature of 98.8, respirations of 16, O2 sats of 96% on room air. GENERAL: Confused and disoriented female in no apparent distress. RESPIRATORY: Clear to auscultation bilaterally. CARDIOVASCULAR: Regular rate and rhythm. NEUROLOGICAL: The patient is obtunded. She does open her eyes to noxious stimuli. She does not fol low any commands. Cranial nerves: Pupils are 4 mm reactive bilaterally. She blinks to threat on th e right side, but not on the left. Face appears symmetric. Motor exam showed flaccid bilateral uppe r and lower extremity. She withdraws to pain on both upper and lower extremities. EEG was reviewed from this morning which showed slowing, but no epileptiform discharges. IMPRESSION: 1. Status epilepticus, now resolved. 2. Complex partial seizure with secondary generalization. 3. Prior history of subdural hematoma. 4. Prior history of cerebral infarction. ASSESSMENT AND PLAN: Ms. Hart is a pleasant 52-year-old female has noted improvement in her convulsive episodes after being given the fosphenytoin and Ativan on yesterday. I have increased the dose of the Depakote to 1000 mg b.i.d. I will check the level for the Depakote. Continue Keppr a at the current dose. Continue supportive care.
--- NOTE | 2018-01-27 08:07 | PRG ---
DATE OF SERVICE: 01/25/2018 SUBJECTIVE: Ms. Hart was noted to have increasing confusion earlier today. I had received a phone call from the nurse, saying the patient was having generalized tonic-clonic convulsions. There was ongoing for more than 5 minutes on my evaluation, following this episode was obtunded and nonresponsi ve to any verbal stimuli. She would grimace to the noxious stimuli. PHYSICAL EXAMINATION: VITAL SIGNS: Blood pressure of 159/92, pulse of 75, T-max of 101.7, respirations of 20. GENERAL: Obtunded female in no apparent distress. RESPIRATORY: Clear to auscultation bilaterally. CARDIOVASCULAR: Regular rate and rhythm. NEUROLOGICAL: Mental status: The patient is obtunded. She does not respond to verbal stimuli. She grimaces to noxious stimuli. Pupils are 3 mm and reactive. Face appears symmetric. Motor exam theresa wed bilateral upper and lower extremity. She withdraws to noxious stimuli in both upper and lower ex tremities. EEG was reviewed, which showed left hemispheric electrographic seizure. IMPRESSION: 1. Status epilepticus. 2. Prior subdural hematoma. 3. History of stroke. 4. History of noncompliance. Ms. Hart is a 52-year-old female with history of subdural hematoma and stroke and seizure disorder who presented with the recurrent seizures. She was noted to have generalized tonic-clonic convulsions today and obtain a stat EEG, which had shown electrographic seizures from the left hemisp here. She is already on Keppra and Depakote and thus I had loaded. The patient with Dilantin 50 mg IV one time dose along with Ativan 2 mg IV. I did have a discussion to have the patient transferred to the [facility] for continuous EEG and will be placed on induced with Versed infusion. I have discussed this with Dr. Benites, who had in turn called patient's power of staff attorney. She is a DNR status and t hey do not wish to intubate the patient. For this reason, we cannot put her on inducedf and thus I h ave treated with antiepileptic medication IV for now. I would recommend consulting Palliative Care a nd discussing with the patient's family members for hospice care. Continue supportive care. Thank you for the consultation.
[2018-01-27 08:50] LABS: Anion Gap 18 mmol/L (10-20); BUN (Urea Nitrogen) 6 mg/dL (7.0-18.7); Calc. Creatinine Clearance 92 mL/min (70-130); Calcium 8.4 mg/dL (7.8-10.44); Carbon Dioxide 19 mmol/L (22-29); Chloride 106 mmol/L (98-107); Estimated GFR-MDRD Greater than 90; Glucose 77 mg/dL (70-105); Potassium 3.1 mmol/L (3.5-5.1); Sodium 140 mmol/L (136-145)
[2018-01-27] MEDS: Valproate Sodium 1,000 MG in Sodium Chloride 0.9% 100 ML IVPB SCH ×2 (09:00→20:28)
[2018-01-27] MEDS: levETIRAcetam In NaCl (Iso-Os) 1,500 MG in Premix Bag 1 BAG IVPB SCH ×2 (09:00→20:29)
[2018-01-27] MEDS: cloNIDine 0.2mg/24 Hour PATCH TD SCH (09:00)
--- NOTE | 2018-01-27 13:08 | PDOC.PN ---
- Subjective Encounter Start Date: 01/27/18 Encounter Start Time: 13:06 Subjective: no new events ,no new complaints -: remains non conversant and sleepy - Objective Resuscitation Status: Resuscitation Status DNR:Do Not Resuscitate MAR Reviewed: Yes Vital Signs & Weight: Vital Signs (12 hours) Temp Pulse Resp BP BP Pulse Ox 01/27/18 11:35 98.9 F 76 18 164/82 H 98 01/27/18 10:47 152/78 H 01/27/18 08:00 98.9 F 70 16 01/27/18 07:23 98.9 F 70 16 161/77 H 97 01/27/18 05:18 178/82 H 01/27/18 04:00 98.1 F 79 18 178/82 H 98 Weight Admit Weight 103 lb 5 oz Weight 103 lb 8 oz I&O: 01/26/18 01/27/18 01/28/18 06:59 06:59 06:59 Intake Total 1450 1290 Balance 1450 1290 Result Diagrams: 01/26/18 04:59 01/27/18 08:24 Additional Labs: Microbiology 01/22/18 20:16 Urine Straight Catheter Urine Culture - Final Enterococcus faecalis 01/14/18 12:15 Stool - Pending Stool Occult Blood (GIANFRANCO) - Final 01/25/18 15:06 Venous blood - Right Hand Blood Culture - Preliminary Specimen has been received and culture in progress. No Growth to date. 01/25/18 15:00 Venous blood - Left Hand Blood Culture - Preliminary Specimen has been received and culture in progress. No Growth to date. Phys Exam - Physical Examination Constitutional: NAD HEENT: PERRLA, moist MMs, sclera anicteric, oral pharynx no lesions Neck: no nodes, no JVD, supple, full ROM Respiratory: no wheezing, no rales, no rhonchi, clear to auscultation bilateral Cardiovascular: RRR, no significant murmur, no rub Gastrointestinal: soft, non-tender, no distention, positive bowel sounds Musculoskeletal: no edema, pulses present Neurological: moves all 4 limbs Deviation from normal: confused and sleepy Skin: no rash Dx/Plan (1) Breakthrough seizure Code(s): G40.919 - EPILEPSY, UNSP, INTRACTABLE, WITHOUT STATUS EPILEPTICUS Status: Acute Comment: Concern for Status epilepticus.No more for now (2) Acute metabolic encephalopathy Code(s): G93.41 - METABOLIC ENCEPHALOPATHY Status: Acute Comment: Likley due to seizures and UTI (3) Sepsis Code(s): A41.9 - SEPSIS, UNSPECIFIED ORGANISM Status: Acute Comment: present on admission, fever and leukocytosis with UTI,on Rocephin and clindamycin now (4) UTI (urinary tract infection) Status: Acute Comment: E.fecalis (5) Hypokalemia Code(s): E87.6 - HYPOKALEMIA Status: Acute (6) Hypertensive urgency Code(s): I16.0 - HYPERTENSIVE URGENCY Status: Resolved Comment: PO meds on hold.Cont IV vasotec (7) Seizure disorder Code(s): G40.909 - EPILEPSY, UNSP, NOT INTRACTABLE, WITHOUT STATUS EPILEPTICUS Status: Chronic Comment: Po meds on hold (8) Bipolar 1 disorder Code(s): F31.9 - BIPOLAR DISORDER, UNSPECIFIED Status: Chronic (9) H/O: CVA (cerebrovascular accident) Code(s): Z86.73 - PRSNL HX OF TIA (TIA), AND CEREB INFRC W/O RESID DEFICITS Status: Chronic (10) HTN (hypertension) Code(s): I10 - ESSENTIAL (PRIMARY) HYPERTENSION Status: Chronic Qualifiers: Hypertension type: essential hypertension Qualified Code(s): I10 - Essential (primary) hypertension Comment: uncontrolled, home BP meds on hold as pt not safe to swollow (11) Vascular dementia Code(s): F01.50 - VASCULAR DEMENTIA WITHOUT BEHAVIORAL DISTURBANCE Status: Chronic Qualifiers: Dementia behavioral disturbance: with behavioral disturbance Qualified Code (s): F01.51 - Vascular dementia with behavioral disturbance (12) Hyponatremia Code(s): E87.1 - HYPO-OSMOLALITY AND HYPONATREMIA Status: Resolved - Plan continue antibiotics, PT/OT, incentive spirometry, out of bed/ambulate, DVT proph w/SCDs cont IV keppra & Valproic acid.seizure precautions.hemodynamically stable -: cont ABx for Enterococcus in urine & possible aspiration PNA -: remains NPO as can't swollow safely.cont gentle IVF hydration -: replace and recheck potassium.am labs -: BP still high.cont IV vasotec & add Clonidine TD patch.monitor * . Review of Systems - Review of Systems Other: unobtainable due to encephalopathy - Medications/Allergies Allergies/Adverse Reactions: Allergies Allergy/AdvReac Type Severity Reaction Status Date / Time aspirin Allergy Intermediate Short of Verified 11/04/17 21:27 Breath meperidine HCl [From Demerol] Allergy Intermediate Swollen Verified 11/04/17 21: 27 Lips amoxicillin [Amoxicillin] Allergy Verified 11/04/17 21:27 levofloxacin [From Levaquin] Allergy Verified 01/25/18 14:38 Penicillins Allergy Verified 11/04/17 21:27 codeine AdvReac Mild Verified 11/04/17 21:27 Medications: Current Medications Acetaminophen (Tylenol) 650 mg AL Q6H PRN PRN Reason: Headache/Fever or Pain Last Admin: 01/25/18 21:34 Dose: 650 mg Clonidine (Dlfagohi-Kfy-0) 0.2 mg TD Q7DAYS [facility] Last Admin: 01/27/18 09:00 Dose: 0.2 mg Enalaprilat (Vasotec) 1.25 mg SLOW IVP 0400,1000,1600,2200 [facility] Last Admin: 01/27/18 10:47 Dose: 1.25 mg Hydralazine HCl (Apresoline) 10 mg SLOW IVP Q4H PRN PRN Reason: SBP>180 OR DBP>100 Last Admin: 01/24/18 08:35 Dose: 10 mg Sodium Chloride (Normal Saline 0.9%) 1,000 mls @ 100 mls/hr IV .Q10H [facility] Last Admin: 01/27/18 05:25 Dose: 1,000 mls Levetiracetam 1,500 mg/ Device 100 mls @ 200 mls/hr IVPB BID [facility] Last Admin: 01/27/18 09:00 Dose: 100 mls Ceftriaxone Sodium 1 gm/ (Sodium Chloride) 100 mls @ 200 mls/hr IVPB Q24HR [facility] Last Admin: 01/26/18 17:22 Dose: 100 mls Clindamycin Phosphate/Dextrose (600 mg/ Device) 50 mls @ 100 mls/hr IVPB 0100, 0900,1700 [facility] Last Admin: 01/27/18 08:59 Dose: 50 mls Valproic Acid 1,000 mg/ Sodium (Chloride) 110 mls @ 100 mls/hr IVPB BID [facility] Last Admin: 01/27/18 09:00 Dose: 110 mls Labetalol HCl (Normodyne) 10 mg SLOW IVP Q1H PRN PRN Reason: SBP>180 DBP>100 HOLD HR<60 Last Admin: 01/25/18 08:48 Dose: 10 mg Lorazepam (Ativan) 1 mg SLOW IVP Q4H PRN PRN Reason: Anxiety/Agitation Last Admin: 01/26/18 00:10 Dose: 1 mg Potassium Chloride (Potassium Chloride) 40 meq IVPB ONE GUY Sodium Chloride (Flush - Normal Saline) 10 ml IVF Q12HR [facility] Last Admin: 01/27/18 09:04 Dose: Not Given Sodium Chloride (Flush - Normal Saline) 10 ml IVF PRN PRN PRN Reason: Saline Flush
[2018-01-27] MEDS: D5 1/2 NS w/20 mEq KCL 1,000 ML IV SCH (14:00)
[2018-01-27] MEDS: Potassium Chloride 20 MEQ in Premix Bag 1 BAG IVPB SCH ×2 (14:05→16:19)
[2018-01-27] MEDS: Lorazepam 2 MG/ML VIAL SLOW IVP PRN (16:14)
[2018-01-27] MEDS: cefTRIAXone\\ROCEPHIN 1 GM in Sodium Chloride 0.9% 100 ML IVPB SCH (18:28)
[2018-01-27] MEDS ORDERED: Enalaprilat Dihydrate 1.25 MG/ML VIAL SLOW IVP SCH (22:00)
[2018-01-28] MEDS: Clindamycin/D5W 600 MG in Premix Bag 1 BAG IVPB SCH ×3 (00:14→16:27)
[2018-01-28] MEDS: Lorazepam 2 MG/ML VIAL SLOW IVP PRN (00:32)
--- NOTE | 2018-01-28 01:21 | PRG ---
DATE OF SERVICE: 01/27/2018 SUBJECTIVE: Ms. Hart had 2 more episodes of focal motor seizure today, both of these episodes invo lve left facial twitching and lasted 1-2 minutes. These episodes did subside after she was given IV Ativan. She continues to be very confused and nonverbal. She does not follow any commands. PHYSICAL EXAMINATION: VITAL SIGNS: Blood pressure of 171/84, pulse of 76, temperature of 99.6, respirations of 20, O2 sats 94% on room air. GENERAL: Confused and disoriented female, in no apparent distress. RESPIRATORY: Clear to auscultation bilaterally. CARDIOVASCULAR: Regular rate and rhythm. NEUROLOGICAL: Mental status: The patient is confused and disoriented. She does open her eyes spont aneously; however, she does not follow any commands. She is nonverbal. Motor exam showed flaccid bi lateral upper extremities. She has somewhat spastic catch at the elbow. She does withdraw to noxiou s stimuli in both upper and lower extremities. LABORATORY DATA: Labs are reviewed, which included CBC, BMP, which is significant for WBC of 12.5, h emoglobin 11.9, hematocrit of 35.0, potassium of 3.1, otherwise unremarkable. IMPRESSION: 1. Status epilepticus, now improving. 2. Complex partial seizure with secondary generalization. ASSESSMENT AND PLAN: Ms. Hart is a 52-year-old female, who presented with the altered me ntal status. She had 2 more episodes of focal motor seizure. These are likely complex partial seizu re with secondary generalization. At this time, I would recommend continuing her on Keppra 1500 mg t wice a day, Depakote 1000 mg b.i.d. and will have added Dilantin 300 mg at bedtime. Her Depakote lev el was 23.9, which is subtherapeutic. For now, I will continue her on Depakote at 1000 mg b.i.d. I will recheck the level in the morning. If she continues to have low subtherapeutic Depakote level, t arlene I may increase the dose to 1500 mg twice daily. Continue supportive care. Continue current [facility] management. Thank you for consultation.
[2018-01-28] MEDS: D5 1/2 NS w/20 mEq KCL 1,000 ML IV SCH ×2 (03:56→05:20)
[2018-01-28] MEDS: Enalaprilat Dihydrate 1.25 MG/ML VIAL SLOW IVP SCH ×3 (05:00→15:38)
[2018-01-28 06:21] LABS: #Basophils 0.1 thou/uL (0.0-0.2); #Eosinphils 0.2 thou/uL (0.0-0.7); #Lymphocytes 2.8 thou/uL (1.20-3.40); #Monocytes 0.6 thou/uL (0.11-0.59); #Neutrophils 3.3 thou/uL (1.40-6.50); %Basophils 0.8 % (0.0-1.0); %Eosinophils 2.7 % (0.0-10.0); %Lymphocytes 40.6 % (21.0-51.0); %Monocytes 9.1 % (0.0-10.0); %Neutrophils 46.8 % (42.0-75.0); Hemoglobin 11.1 g/dL (12.0-16.0); Mean Corpuscular HGB CONC 33.1 g/dL (32.0-36.0); Mean Corpuscular Hemoglobin 31.8 pg (27.0-31.0); Mean Platelet Volume 6.7 fL (7.4-10.4); Platelet Count 136 thou/uL (130-400); RBC Distribution Width 15.3 % (11.5-14.5); Red Blood Cell (RBC) Count 3.49 mill/uL (4.20-5.40)
[2018-01-28 06:50] LABS: Anion Gap 14 mmol/L (10-20); BUN (Urea Nitrogen) 5 mg/dL (7.0-18.7); Calc. Creatinine Clearance 82 mL/min (70-130); Calcium 8.4 mg/dL (7.8-10.44); Carbon Dioxide 21 mmol/L (22-29); Chloride 106 mmol/L (98-107); Estimated GFR-MDRD Greater than 90; Glucose 98 mg/dL (70-105); Potassium 3.4 mmol/L (3.5-5.1); Sodium 138 mmol/L (136-145)
[2018-01-28] MEDS: Valproate Sodium 1,000 MG in Sodium Chloride 0.9% 100 ML IVPB SCH ×2 (08:33→21:34)
[2018-01-28] MEDS: levETIRAcetam In NaCl (Iso-Os) 1,500 MG in Premix Bag 1 BAG IVPB SCH ×2 (08:33→20:04)
[2018-01-28] MEDS: hydrALAZINE 20 MG/ML VIAL SLOW IVP PRN ×3 (08:34→21:17)
[2018-01-28] MEDS: Labetalol 100 MG/20 ML MDV SLOW IVP PRN (14:31)
--- NOTE | 2018-01-28 14:33 | PDOC.PN ---
- Subjective Encounter Start Date: 01/28/18 Encounter Start Time: 14:31 Subjective: 1 episode of focal seizure involving face last night - Objective Resuscitation Status: Resuscitation Status DNR:Do Not Resuscitate MAR Reviewed: Yes Vital Signs & Weight: Vital Signs (12 hours) Temp Pulse Pulse Pulse Resp BP BP 01/28/18 11:43 97.8 F 77 14 01/28/18 10:45 194/93 H 01/28/18 08:41 80 90 184/98 H 01/28/18 08:34 189/92 H 01/28/18 08:00 98.3 F 70 16 01/28/18 03:51 98.3 F 76 20 BP BP Pulse Ox 01/28/18 11:43 178/91 H 95 01/28/18 10:45 01/28/18 08:41 173/93 H 01/28/18 08:34 01/28/18 08:00 189/92 H 97 01/28/18 03:51 166/93 H 95 Weight Admit Weight 103 lb 5 oz Weight 109 lb I&O: 01/27/18 01/28/18 01/29/18 06:59 06:59 06:59 Intake Total 1290 2448 Balance 1290 2448 Result Diagrams: 01/28/18 06:01 01/28/18 06:01 Additional Labs: Microbiology 01/22/18 20:16 Urine Straight Catheter Urine Culture - Final Enterococcus faecalis 01/14/18 12:15 Stool - Pending Stool Occult Blood (GIANFRANCO) - Final 01/25/18 15:06 Venous blood - Right Hand Blood Culture - Preliminary NO GROWTH AT 48 HOURS 01/25/18 15:00 Venous blood - Left Hand Blood Culture - Preliminary NO GROWTH AT 48 HOURS Laboratory Tests 01/26/18 18:08 Valproic Acid 23.9 L labs reviewed Phys Exam - Physical Examination Constitutional: NAD awake but not following commands HEENT: PERRLA, moist MMs, sclera anicteric, oral pharynx no lesions bruises on chin Neck: no nodes, no JVD, supple, full ROM Respiratory: no wheezing, no rales, no rhonchi, clear to auscultation bilateral Cardiovascular: RRR, no significant murmur, no rub Gastrointestinal: soft, non-tender, no distention, positive bowel sounds Musculoskeletal: no edema, pulses present Neurological: moves all 4 limbs tarcks w eyes but not oriented at all Skin: no rash Dx/Plan (1) Breakthrough seizure Code(s): G40.919 - EPILEPSY, UNSP, INTRACTABLE, WITHOUT STATUS EPILEPTICUS Status: Acute Comment: Concern for Status epilepticus.No more for now (2) Acute metabolic encephalopathy Code(s): G93.41 - METABOLIC ENCEPHALOPATHY Status: Acute Comment: Likley due to seizures and UTI (3) Sepsis Code(s): A41.9 - SEPSIS, UNSPECIFIED ORGANISM Status: Acute Comment: present on admission, fever and leukocytosis with UTI,on Rocephin and clindamycin now (4) UTI (urinary tract infection) Status: Acute Comment: E.fecalis (5) Hypokalemia Code(s): E87.6 - HYPOKALEMIA Status: Acute (6) Hypertensive urgency Code(s): I16.0 - HYPERTENSIVE URGENCY Status: Resolved Comment: PO meds on hold.Cont IV vasotec (7) Seizure disorder Code(s): G40.909 - EPILEPSY, UNSP, NOT INTRACTABLE, WITHOUT STATUS EPILEPTICUS Status: Chronic Comment: Po meds on hold (8) Bipolar 1 disorder Code(s): F31.9 - BIPOLAR DISORDER, UNSPECIFIED Status: Chronic (9) H/O: CVA (cerebrovascular accident) Code(s): Z86.73 - PRSNL HX OF TIA (TIA), AND CEREB INFRC W/O RESID DEFICITS Status: Chronic (10) HTN (hypertension) Code(s): I10 - ESSENTIAL (PRIMARY) HYPERTENSION Status: Chronic Qualifiers: Hypertension type: essential hypertension Qualified Code(s): I10 - Essential (primary) hypertension Comment: uncontrolled, home BP meds on hold as pt not safe to swollow (11) Vascular dementia Code(s): F01.50 - VASCULAR DEMENTIA WITHOUT BEHAVIORAL DISTURBANCE Status: Chronic Qualifiers: Dementia behavioral disturbance: with behavioral disturbance Qualified Code (s): F01.51 - Vascular dementia with behavioral disturbance (12) Hyponatremia Code(s): E87.1 - HYPO-OSMOLALITY AND HYPONATREMIA Status: Resolved - Plan continue antibiotics, PT/OT, DVT proph w/SCDs dilantin addaed last night for persistant seizures.cont IV keppra,depacone -: Abx empirically for UTI.clinically stable. no fever.taper soon -: BP still high.cont clonidine patch & IV vasotec -: increase hydralazine prn.monitor -: cont D5w w Kcl..monitor hemodynamicis and lytes * . Review of Systems - Review of Systems Other: unobtainable due to encephalopathy - Medications/Allergies Allergies/Adverse Reactions: Allergies Allergy/AdvReac Type Severity Reaction Status Date / Time aspirin Allergy Intermediate Short of Verified 11/04/17 21:27 Breath meperidine HCl [From Demerol] Allergy Intermediate Swollen Verified 11/04/17 21: 27 Lips amoxicillin [Amoxicillin] Allergy Verified 11/04/17 21:27 levofloxacin [From Levaquin] Allergy Verified 01/25/18 14:38 Penicillins Allergy Verified 11/04/17 21:27 codeine AdvReac Mild Verified 11/04/17 21:27 Medications: Current Medications Acetaminophen (Tylenol) 650 mg GA Q6H PRN PRN Reason: Headache/Fever or Pain Last Admin: 01/25/18 21:34 Dose: 650 mg Clonidine ([place]pse-Khn-7) 0.2 mg TD Q7DAYS [facility] Last Admin: 01/27/18 09:00 Dose: 0.2 mg Enalaprilat (Vasotec) 1.25 mg SLOW IVP 0400,1000,1600,2200 [facility] Last Admin: 01/28/18 10:45 Dose: 1.25 mg Hydralazine HCl (Apresoline) 5 mg SLOW IVP Q4H PRN PRN Reason: SBP>160 OR DBP>90 Last Admin: 01/28/18 08:34 Dose: 5 mg Levetiracetam 1,500 mg/ Device 100 mls @ 200 mls/hr IVPB BID [facility] Last Admin: 01/28/18 08:33 Dose: 100 mls Ceftriaxone Sodium 1 gm/ (Sodium Chloride) 100 mls @ 200 mls/hr IVPB Q24HR [facility] Last Admin: 01/27/18 18:28 Dose: 100 mls Clindamycin Phosphate/Dextrose (600 mg/ Device) 50 mls @ 100 mls/hr IVPB 0100, 0900,1700 [facility] Last Admin: 01/28/18 08:24 Dose: 50 mls Valproic Acid 1,000 mg/ Sodium (Chloride) 110 mls @ 100 mls/hr IVPB BID [facility] Last Admin: 01/28/18 08:33 Dose: 110 mls Potassium Chloride/Dextrose/Sod Cl (D5 1/2 Ns W/20 Meq Kcl) 1,000 mls @ 75 mls/ hr IV .[id number] [facility] Last Admin: 01/28/18 05:20 Dose: 1,000 mls Fosphenytoin Sodium 300 mg/ (Sodium Chloride) 56 mls @ 112 mls/hr IVPB HS [facility] Last Admin: 01/27/18 20:29 Dose: 56 mls Labetalol HCl (Normodyne) 10 mg SLOW IVP Q1H PRN PRN Reason: SBP>180 DBP>100 HOLD HR<60 Last Admin: 01/25/18 08:48 Dose: 10 mg Lorazepam (Ativan) 1 mg SLOW IVP Q4H PRN PRN Reason: Anxiety/Agitation Last Admin: 01/28/18 00:32 Dose: 1 mg Sodium Chloride (Flush - Normal Saline) 10 ml IVF Q12HR [facility] Last Admin: 01/28/18 08:36 Dose: 10 ml Sodium Chloride (Flush - Normal Saline) 10 ml IVF PRN PRN PRN Reason: Saline Flush
[2018-01-28] MEDS ORDERED: Nitroglycerin 2% Ointment 1 INCH/1 GM Packet TOP SCH (15:15)
[2018-01-28 16:54] LABS: Dilantin 12.2 ug/mL (10.0-20.0); Valproic Acid (Depakene) 40.8 ug/mL (50.0-100.0)
[2018-01-28] MEDS ORDERED: hydrALAZINE 20 MG/ML VIAL SLOW IVP SCH (17:15)
[2018-01-28] MEDS: cefTRIAXone\\ROCEPHIN 1 GM in Sodium Chloride 0.9% 100 ML IVPB SCH (17:35)
--- NOTE | 2018-01-28 19:50 | PRG ---
DATE OF SERVICE: 01/28/2018 SUBJECTIVE: Ms. Hart has not had any seizure over the past 24 hours. Per nurse, she is becoming m ore alert and awake. She is able to chew on ice chips today. She has mumbled some words that are in coherent. PHYSICAL EXAMINATION: VITAL SIGNS: Blood pressure of 216/95, pulse of 70, temperature of 97.9, respirations of 14, O2 sats of 97% on room air. GENERAL: Confused and disoriented female, in no apparent distress. RESPIRATORY: Clear to auscultation bilaterally. CARDIOVASCULAR: Regular rate and rhythm. NEUROLOGICAL: Mental status: The patient is awake, but confused and disoriented to person, place an d time. She is nonverbal. Cranial nerves: Pupils are 3 mm and reactive. Visual dixon, she blinks to threat on the right, but not on the left. Face appears symmetric. Motor exam showed spastic cat ch in both upper extremities. She spontaneously moves both upper and lower extremities, however, not to command. LABORATORY DATA: Reviewed, which included CBC and BMP, which is significant for hemoglobin of 11.1, hematocrit 33.5, potassium of 3.4, otherwise unremarkable. IMPRESSION: 1. Status epilepticus, now resolved. 2. Complex partial seizure with secondary generalization. 3. History of subdural hematoma. PLAN: Ms. Hart is a 52-year-old female who presented with recurrent seizures. She has b een seizure free over the past 48 hours. At this time, we will recommend continuing her on Depakote, Dilantin and Keppra. I will check the levels of Depakote and Dilantin today. I will adjust the dos age if the levels are subtherapeutic. Continue supportive care. Continue current medical management . Thank you for the consultation.
[2018-01-28] MEDS: Nitroglycerin 2% Ointment 1 INCH/1 GM Packet TOP SCH (21:17)
[2018-01-29] MEDS: Enalaprilat Dihydrate 1.25 MG/ML VIAL SLOW IVP SCH ×4 (00:32→17:45)
[2018-01-29] MEDS: Clindamycin/D5W 600 MG in Premix Bag 1 BAG IVPB SCH ×3 (00:38→16:19)
[2018-01-29] MEDS: D5 1/2 NS w/20 mEq KCL 1,000 ML IV SCH ×3 (01:32→17:13)
[2018-01-29] MEDS: Lorazepam 2 MG/ML VIAL SLOW IVP PRN ×2 (01:35→20:38)
[2018-01-29 06:02] LABS: Anion Gap 13 mmol/L (10-20); BUN (Urea Nitrogen) Less than 4 mg/dL (7.0-18.7); Calc. Creatinine Clearance 90 mL/min (70-130); Calcium 8.7 mg/dL (7.8-10.44); Carbon Dioxide 23 mmol/L (22-29); Chloride 106 mmol/L (98-107); Estimated GFR-MDRD Greater than 90; Glucose 125 mg/dL (70-105); Potassium 3.1 mmol/L (3.5-5.1); Sodium 139 mmol/L (136-145)
[2018-01-29] MEDS: Nitroglycerin 2% Ointment 1 INCH/1 GM Packet TOP SCH ×3 (06:10→21:30)
[2018-01-29] MEDS ORDERED: Potassium Chloride 40 MEQ in Sodium Chloride 0.9% 250 ML 250 ML IV SCH (07:45)
[2018-01-29] MEDS: Valproate Sodium 1,000 MG in Sodium Chloride 0.9% 100 ML IVPB SCH ×2 (09:06→21:30)
[2018-01-29] MEDS: levETIRAcetam In NaCl (Iso-Os) 1,500 MG in Premix Bag 1 BAG IVPB SCH ×2 (10:17→20:35)
--- NOTE | 2018-01-29 12:36 | PDOC.PN ---
- Subjective Encounter Start Date: 01/29/18 Encounter Start Time: 12:35 Subjective: remains confused ,does not follow command -: awake and sitting up in bed w PT but would not respond when called - Objective Resuscitation Status: Resuscitation Status DNR:Do Not Resuscitate MAR Reviewed: Yes Vital Signs & Weight: Vital Signs (12 hours) Temp Pulse Pulse Pulse Resp BP BP 01/29/18 11:50 98.7 F 85 14 01/29/18 11:34 157/79 H 01/29/18 09:24 86 85 178/83 H 01/29/18 07:35 99.2 F 86 14 01/29/18 04:05 98.2 F 93 14 BP BP Pulse Ox 01/29/18 11:50 157/79 H 94 L 01/29/18 11:34 01/29/18 09:24 172/74 H 01/29/18 07:35 148/75 H 95 01/29/18 04:05 159/87 H 96 Weight Admit Weight 103 lb 5 oz Weight 106 lb 6.4 oz I&O: 01/28/18 01/29/18 01/30/18 06:59 06:59 06:59 Intake Total 2448 1886 Balance 2448 1886 Result Diagrams: 01/28/18 06:01 01/29/18 04:54 Additional Labs: Microbiology 01/22/18 20:16 Urine Straight Catheter Urine Culture - Final Enterococcus faecalis 01/25/18 15:06 Venous blood - Right Hand Blood Culture - Preliminary NO GROWTH AT 48 HOURS 01/25/18 15:00 Venous blood - Left Hand Blood Culture - Preliminary NO GROWTH AT 48 HOURS labs reviewed Phys Exam - Physical Examination Constitutional: NAD (sitiing up in chair.resisist movements by PT) HEENT: PERRLA, moist MMs, sclera anicteric, oral pharynx no lesions bruise on chin Neck: no nodes, no JVD, supple, full ROM Respiratory: no wheezing, no rales, no rhonchi, clear to auscultation bilateral Cardiovascular: RRR, no significant murmur, no rub Gastrointestinal: soft, non-tender, no distention, positive bowel sounds Musculoskeletal: no edema, pulses present Neurological: non-focal, normal sensation, moves all 4 limbs Psychiatric: normal affect, A&O x 3 Skin: no rash Dx/Plan (1) Breakthrough seizure Code(s): G40.919 - EPILEPSY, UNSP, INTRACTABLE, WITHOUT STATUS EPILEPTICUS Status: Acute Comment: Concern for Status epilepticus.No more for now (2) Acute metabolic encephalopathy Code(s): G93.41 - METABOLIC ENCEPHALOPATHY Status: Acute Comment: Likley due to seizures and UTI (3) Sepsis Code(s): A41.9 - SEPSIS, UNSPECIFIED ORGANISM Status: Acute Comment: present on admission, fever and leukocytosis with UTI,on Rocephin and clindamycin now (4) UTI (urinary tract infection) Status: Acute Comment: E.fecalis (5) Hypokalemia Code(s): E87.6 - HYPOKALEMIA Status: Acute Comment: on D5 1/2 NS w KCl (6) Hypertensive urgency Code(s): I16.0 - HYPERTENSIVE URGENCY Status: Resolved Comment: PO meds on hold.Cont IV vasotec,Clonidine patch.nitro paste added yesterday.better controlled (7) Seizure disorder Code(s): G40.909 - EPILEPSY, UNSP, NOT INTRACTABLE, WITHOUT STATUS EPILEPTICUS Status: Chronic Comment: Po meds on hold (8) Bipolar 1 disorder Code(s): F31.9 - BIPOLAR DISORDER, UNSPECIFIED Status: Chronic (9) H/O: CVA (cerebrovascular accident) Code(s): Z86.73 - PRSNL HX OF TIA (TIA), AND CEREB INFRC W/O RESID DEFICITS Status: Chronic (10) HTN (hypertension) Code(s): I10 - ESSENTIAL (PRIMARY) HYPERTENSION Status: Chronic Qualifiers: Hypertension type: essential hypertension Qualified Code(s): I10 - Essential (primary) hypertension Comment: uncontrolled, home BP meds on hold as pt not safe to swollow (11) Vascular dementia Code(s): F01.50 - VASCULAR DEMENTIA WITHOUT BEHAVIORAL DISTURBANCE Status: Chronic Qualifiers: Dementia behavioral disturbance: with behavioral disturbance Qualified Code (s): F01.51 - Vascular dementia with behavioral disturbance (12) Hyponatremia Code(s): E87.1 - HYPO-OSMOLALITY AND HYPONATREMIA Status: Resolved - Plan continue antibiotics, PT/OT, out of bed/ambulate, DVT proph w/SCDs remains confuesd & NPO therefore.not safe for any PO meds -: cont IV keppra,Dilantin,Depacone.no more seizures -: on ABx for UTI. -: am labs.replace and recheck Lytes. -: Follow PCT input about disposition if remains encephalopathic & NPO * . Review of Systems - Review of Systems Other: can not be obtained due to encephalopathy - Medications/Allergies Allergies/Adverse Reactions: Allergies Allergy/AdvReac Type Severity Reaction Status Date / Time aspirin Allergy Intermediate Short of Verified 11/04/17 21:27 Breath meperidine HCl [From Demerol] Allergy Intermediate Swollen Verified 11/04/17 21: 27 Lips amoxicillin [Amoxicillin] Allergy Verified 11/04/17 21:27 levofloxacin [From Levaquin] Allergy Verified 01/25/18 14:38 Penicillins Allergy Verified 11/04/17 21:27 codeine AdvReac Mild Verified 11/04/17 21:27 Medications: Current Medications Acetaminophen (Tylenol) 650 mg [place] Q6H PRN PRN Reason: Headache/Fever or Pain Last Admin: 01/25/18 21:34 Dose: 650 mg Clonidine (Skylrdme-Arf-6) 0.2 mg TD Q7DAYS [facility] Last Admin: 01/27/18 09:00 Dose: 0.2 mg Enalaprilat (Vasotec) 1.25 mg SLOW IVP Q6HR [facility] Last Admin: 01/29/18 11:34 Dose: 1.25 mg Hydralazine HCl (Apresoline) 5 mg SLOW IVP Q4H PRN PRN Reason: SBP>160 OR DBP>90 Last Admin: 01/28/18 21:17 Dose: 5 mg Levetiracetam 1,500 mg/ Device 100 mls @ 200 mls/hr IVPB BID [facility] Last Admin: 01/29/18 10:17 Dose: 100 mls Ceftriaxone Sodium 1 gm/ (Sodium Chloride) 100 mls @ 200 mls/hr IVPB Q24HR [facility] Last Admin: 01/28/18 17:35 Dose: 100 mls Clindamycin Phosphate/Dextrose (600 mg/ Device) 50 mls @ 100 mls/hr IVPB 0100, 0900,1700 [facility] Last Admin: 01/29/18 11:01 Dose: 50 mls Valproic Acid 1,000 mg/ Sodium (Chloride) 110 mls @ 100 mls/hr IVPB BID [facility] Last Admin: 01/29/18 09:06 Dose: 110 mls Potassium Chloride/Dextrose/Sod Cl (D5 1/2 Ns W/20 Meq Kcl) 1,000 mls @ 75 mls/ hr IV .[id number] [facility] Last Admin: 01/29/18 08:45 Dose: Not Given Fosphenytoin Sodium 300 mg/ (Sodium Chloride) 56 mls @ 112 mls/hr IVPB HS [facility] Last Admin: 01/28/18 21:16 Dose: 56 mls Potassium Chloride 40 meq/ (Sodium Chloride) 270 mls @ 67.5 mls/hr IV NOW GUY Stop: 01/29/18 13:00 Last Admin: 01/29/18 11:35 Dose: 270 mls Labetalol HCl (Normodyne) 10 mg SLOW IVP Q1H PRN PRN Reason: SBP>180 DBP>100 HOLD HR<60 Last Admin: 01/28/18 14:31 Dose: 10 mg Lorazepam (Ativan) 1 mg SLOW IVP Q4H PRN PRN Reason: Anxiety/Agitation Last Admin: 01/29/18 01:35 Dose: 1 mg Nitroglycerin (Nitro-Bid 2% Ointment) 0.5 inch TOP Q8HR [facility] Last Admin: 01/29/18 06:10 Dose: 0.5 inch Sodium Chloride (Flush - Normal Saline) 10 ml IVF Q12HR [facility] Last Admin: 01/29/18 09:07 Dose: 10 ml Sodium Chloride (Flush - Normal Saline) 10 ml IVF PRN PRN PRN Reason: Saline Flush
[2018-01-29] MEDS: Labetalol 100 MG/20 ML MDV SLOW IVP PRN ×2 (15:54→20:46)
[2018-01-29] MEDS: cefTRIAXone\\ROCEPHIN 1 GM in Sodium Chloride 0.9% 100 ML IVPB SCH (17:13)
--- NOTE | 2018-01-29 19:19 | PRG ---
DATE OF SERVICE: 01/29/2018 SUBJECTIVE: Ms. Hart has not had any seizure over the past 24 hours. She is more awake, alert, ho wever, still continues to be disoriented and nonverbal. PHYSICAL EXAMINATION: VITAL SIGNS: Blood pressure of 208/102, pulse of 93, temperature of 99.3, respirations of 20, and O2 sats 93% on room air. GENERAL: Confused and disoriented female resting in bed in no apparent distress. RESPIRATORY: Clear to auscultation bilaterally. CARDIOVASCULAR: Regular rate and rhythm. NEUROLOGIC: Essentially unchanged when compared to yesterday. LABORATORY DATA: Reviewed, which included phenytoin level and Depakote level, phenytoin level of 12. 2, Depakote level of 40.8. CBC and CMP, which is significant for potassium of 3.1, hemoglobin 11.1, hematocrit of 33.5, and platelet count of 136, otherwise unremarkable. ASSESSMENT AND PLAN: 1. Complex partial seizure with secondary generalization. 2. Prior history of subdural hematoma. Ms. Hart is a 52-year-old female, who presented with the changes in mentation and multipl e seizures. She has not had any seizure over the past 48 hours. She is slowly recovering in her evelyne rological status. At this time, I will recommend continuing current antiepileptic medications. All of these medications can be switched to oral at the same dose once she is able to swallow tablets. C ontinue current medical management. The can be discharged to a long-term care facility if medically stable and no seizure type episodes.
[2018-01-30] MEDS: Enalaprilat Dihydrate 1.25 MG/ML VIAL SLOW IVP SCH ×5 (01:01→23:03)
[2018-01-30] MEDS: Clindamycin/D5W 600 MG in Premix Bag 1 BAG IVPB SCH ×3 (01:02→16:14)
[2018-01-30 06:28] LABS: Anion Gap 10 mmol/L (10-20); BUN (Urea Nitrogen) Less than 4 mg/dL (7.0-18.7); Calc. Creatinine Clearance 95 mL/min (70-130); Calcium 8.5 mg/dL (7.8-10.44); Carbon Dioxide 23 mmol/L (22-29); Chloride 107 mmol/L (98-107); Estimated GFR-MDRD Greater than 90; Glucose 113 mg/dL (70-105); Potassium 3.8 mmol/L (3.5-5.1); Sodium 136 mmol/L (136-145)
[2018-01-30] MEDS: Nitroglycerin 2% Ointment 1 INCH/1 GM Packet TOP SCH ×3 (06:46→23:03)
[2018-01-30] MEDS: D5 1/2 NS w/20 mEq KCL 1,000 ML IV SCH ×2 (08:59→09:20)
[2018-01-30] MEDS: levETIRAcetam In NaCl (Iso-Os) 1,500 MG in Premix Bag 1 BAG IVPB SCH ×2 (09:20→20:50)
[2018-01-30] MEDS: Valproate Sodium 1,000 MG in Sodium Chloride 0.9% 100 ML IVPB SCH ×2 (10:05→23:44)
[2018-01-30] MEDS: Labetalol 100 MG/20 ML MDV SLOW IVP PRN ×2 (11:35→13:15)
--- NOTE | 2018-01-30 13:31 | MRI ---
BRAIN MRI WITHOUT CONTRAST: Date: 01/30/18 COMPARISON: 02/01/18. HISTORY: New onset facial droop. TECHNIQUE: Brain MRI is performed without intravenous Gadolinium administration. Multisequential, multiplanar im aging is performed. FINDINGS: Limited evaluation due to motion degradation. Central arterial flow-voids are maintained. No definite restricted diffusion. Stable malacic and gliotic changes involving the right occipital and parietal lobe with associated ex vacuo dilatation of the right ventricular system. Additionally, there is stable malacic and gliotic change involving the left parietal lobe with associated mild ex vacuo dilatation of the occipital hor n of the left lateral ventricle. Confluent white matter hyperintensities are noted on the T2 and FLAI R sequence. Stable prominence of the ventricular system. Calvarium has a normal marrow signal intensity. Midline brain parenchymal structures are unremarkable . No evidence of hemorrhage on the axial gradient echo sequence. IMPRESSION: 1. Absent restricted diffusion. No acute infarct. 2. Stable malacic and gliotic changes. 3. Redemonstration of marked dilatation of the ventricular system, which may in part be explained by brain volume loss and encephalomalacia. Correlate clinically for etiologies such as normal pressure hydrocephalus. POS: [facility]
--- NOTE | 2018-01-30 14:23 | PDOC.EVN ---
Event Note - Event Note Event Note: Late entry for 01/29/18.Discussed w LISA .Speech therapist recommenced pureed diet.Pt unable to take any PO meds. Ms Do given option of PEG tube or NG tube for short time to start PO meds .Ms shagufta insists that pt does not get any invasive procedure done. she insists that pt is DNR/DNI and refuses PEG at this time. requests to continue IV meds for now and wait another few days for Mentation to clear enough for pt to take PO meds. Code status addressed again and DNR/DNI. If no response in few days, next logical step is to consult Hospice and NH placement. LISA agrees. Emphasizes that pt will be placed in a NH irrespective of outcome from recent illness. RN notified . Time spent 16 minutes in discussing end of life issues
--- NOTE | 2018-01-30 14:31 | PDOC.PN ---
- Subjective Encounter Start Date: 01/30/18 Encounter Start Time: 14:29 Subjective: no change .remians altered ,awake but not following any commands - Objective Resuscitation Status: Resuscitation Status DNR:Do Not Resuscitate MAR Reviewed: Yes Vital Signs & Weight: Vital Signs (12 hours) Temp Pulse Resp BP BP Pulse Ox 01/30/18 11:55 98.9 F 86 14 207/111 H 95 01/30/18 11:42 207/111 H 01/30/18 08:00 98.5 F 76 12 159/87 H 97 01/30/18 06:45 140/70 01/30/18 04:00 99.2 F 80 16 140/70 96 Weight Admit Weight 103 lb 5 oz Weight 108 lb 1.6 oz I&O: 01/29/18 01/30/18 01/31/18 06:59 06:59 06:59 Intake Total 1886 1780 Balance 1886 1780 Result Diagrams: 01/28/18 06:01 01/30/18 06:09 Additional Labs: Microbiology 01/22/18 20:16 Urine Straight Catheter Urine Culture - Final Enterococcus faecalis 01/25/18 15:06 Venous blood - Right Hand Blood Culture - Preliminary NO GROWTH AT 48 HOURS 01/25/18 15:00 Venous blood - Left Hand Blood Culture - Preliminary NO GROWTH AT 48 HOURS labs reviewed Radiology Reviewed by me: Yes (MRI-no acute infarction.? NPH ) Phys Exam - Physical Examination Constitutional: NAD HEENT: PERRLA, moist MMs, sclera anicteric, oral pharynx no lesions Neck: no nodes, no JVD, supple, full ROM Respiratory: no wheezing, no rales, no rhonchi, clear to auscultation bilateral Cardiovascular: RRR, no significant murmur, no rub Gastrointestinal: soft, non-tender, no distention, positive bowel sounds Musculoskeletal: no edema, pulses present Neurological: non-focal, normal sensation, moves all 4 limbs Deviation from normal: not following any commands.not oriented at all Skin: no rash Dx/Plan (1) Breakthrough seizure Code(s): G40.919 - EPILEPSY, UNSP, INTRACTABLE, WITHOUT STATUS EPILEPTICUS Status: Acute Comment: Concern for Status epilepticus.No more for now (2) Acute metabolic encephalopathy Code(s): G93.41 - METABOLIC ENCEPHALOPATHY Status: Acute Comment: Likley due to seizures and UTI (3) Sepsis Code(s): A41.9 - SEPSIS, UNSPECIFIED ORGANISM Status: Acute Comment: present on admission, fever and leukocytosis with UTI,on Rocephin and clindamycin now (4) UTI (urinary tract infection) Status: Acute Comment: E.fecalis (5) Hypokalemia Code(s): E87.6 - HYPOKALEMIA Status: Acute Comment: on D5 1/2 NS w KCl (6) Hypertensive urgency Code(s): I16.0 - HYPERTENSIVE URGENCY Status: Resolved Comment: PO meds on hold.Cont IV vasotec,Clonidine patch.nitro paste added yesterday.better controlled (7) Seizure disorder Code(s): G40.909 - EPILEPSY, UNSP, NOT INTRACTABLE, WITHOUT STATUS EPILEPTICUS Status: Chronic Comment: Po meds on hold (8) Bipolar 1 disorder Code(s): F31.9 - BIPOLAR DISORDER, UNSPECIFIED Status: Chronic (9) H/O: CVA (cerebrovascular accident) Code(s): Z86.73 - PRSNL HX OF TIA (TIA), AND CEREB INFRC W/O RESID DEFICITS Status: Chronic (10) HTN (hypertension) Code(s): I10 - ESSENTIAL (PRIMARY) HYPERTENSION Status: Chronic Qualifiers: Hypertension type: essential hypertension Qualified Code(s): I10 - Essential (primary) hypertension Comment: uncontrolled, home BP meds on hold as pt not safe to swollow (11) Vascular dementia Code(s): F01.50 - VASCULAR DEMENTIA WITHOUT BEHAVIORAL DISTURBANCE Status: Chronic Qualifiers: Dementia behavioral disturbance: with behavioral disturbance Qualified Code (s): F01.51 - Vascular dementia with behavioral disturbance (12) Hyponatremia Code(s): E87.1 - HYPO-OSMOLALITY AND HYPONATREMIA Status: Resolved - Plan lopez catheter, continue antibiotics, PT/OT, respiratory therapy, incentive spirometry, out of bed/ambulate, DVT proph w/SCDs cont IV anti seizure meds. -: MRI discussed w neurology .no intervention needed for now -: cont current care and wait for pt to have clinical improvement -: if no improvement in next few days,will need to discuss hospice again w POA -: cont BP meds.IV .better controlled * .gentle IVF * discussedw JINRIKSHA DRIVER.not safe for puree today. change to liquid diet w restrictions. * not safe for PO meds * * am labs * follow Cx.if remain negative,.Stop ABx Review of Systems - Review of Systems Other: unobtainable due to encephalopathy - Medications/Allergies Allergies/Adverse Reactions: Allergies Allergy/AdvReac Type Severity Reaction Status Date / Time aspirin Allergy Intermediate Short of Verified 11/04/17 21:27 Breath meperidine HCl [From Demerol] Allergy Intermediate Swollen Verified 11/04/17 21: 27 Lips amoxicillin [Amoxicillin] Allergy Verified 11/04/17 21:27 levofloxacin [From Levaquin] Allergy Verified 01/25/18 14:38 Penicillins Allergy Verified 11/04/17 21:27 codeine AdvReac Mild Verified 11/04/17 21:27 Medications: Current Medications Acetaminophen (Tylenol) 650 mg [place] Q6H PRN PRN Reason: Headache/Fever or Pain Last Admin: 01/25/18 21:34 Dose: 650 mg Clonidine ([id number]-Zyn-9) 0.2 mg TD Q7DAYS [facility] Last Admin: 01/27/18 09:00 Dose: 0.2 mg Enalaprilat (Vasotec) 1.25 mg SLOW IVP Q6HR [facility] Last Admin: 01/30/18 11:42 Dose: 1.25 mg Hydralazine HCl (Apresoline) 5 mg SLOW IVP Q4H PRN PRN Reason: SBP>160 OR DBP>90 Last Admin: 01/28/18 21:17 Dose: 5 mg Levetiracetam 1,500 mg/ Device 100 mls @ 200 mls/hr IVPB BID [facility] Last Admin: 01/30/18 09:20 Dose: 100 mls Ceftriaxone Sodium 1 gm/ (Sodium Chloride) 100 mls @ 200 mls/hr IVPB Q24HR [facility] Last Admin: 01/29/18 17:13 Dose: 100 mls Clindamycin Phosphate/Dextrose (600 mg/ Device) 50 mls @ 100 mls/hr IVPB 0100, 0900,1700 [facility] Last Admin: 01/30/18 11:38 Dose: 50 mls Valproic Acid 1,000 mg/ Sodium (Chloride) 110 mls @ 100 mls/hr IVPB BID [facility] Last Admin: 01/30/18 10:05 Dose: 110 mls Fosphenytoin Sodium 300 mg/ (Sodium Chloride) 56 mls @ 112 mls/hr IVPB HS [facility] Last Admin: 01/29/18 20:47 Dose: 56 mls Potassium Chloride/Dextrose/Sod Cl (D5 1/2 Ns W/20 Meq Kcl) 1,000 mls @ 50 mls/ hr IV .Q20H [facility] Last Admin: 01/30/18 09:20 Dose: 1,000 mls Labetalol HCl (Normodyne) 10 mg SLOW IVP Q1H PRN PRN Reason: SBP>180 DBP>100 HOLD HR<60 Last Admin: 01/30/18 13:15 Dose: 10 mg Lorazepam (Ativan) 1 mg SLOW IVP Q4H PRN PRN Reason: Anxiety/Agitation Last Admin: 01/29/18 20:38 Dose: 1 mg Nitroglycerin (Nitro-Bid 2% Ointment) 0.5 inch TOP Q8HR [facility] Last Admin: 01/30/18 13:16 Dose: 0.5 inch Sodium Chloride (Flush - Normal Saline) 10 ml IVF Q12HR [facility] Last Admin: 01/30/18 09:30 Dose: Not Given Sodium Chloride (Flush - Normal Saline) 10 ml IVF PRN PRN PRN Reason: Saline Flush
[2018-01-30] MEDS: cefTRIAXone\\ROCEPHIN 1 GM in Sodium Chloride 0.9% 100 ML IVPB SCH (17:35)
[2018-01-31] MEDS: Clindamycin/D5W 600 MG in Premix Bag 1 BAG IVPB SCH ×3 (01:59→16:36)
[2018-01-31] MEDS: Enalaprilat Dihydrate 1.25 MG/ML VIAL SLOW IVP SCH ×4 (05:50→23:16)
[2018-01-31] MEDS: Nitroglycerin 2% Ointment 1 INCH/1 GM Packet TOP SCH ×3 (05:50→21:42)
[2018-01-31 05:58] LABS: Anion Gap 13 mmol/L (10-20); BUN (Urea Nitrogen) 5 mg/dL (7.0-18.7); Calc. Creatinine Clearance 91 mL/min (70-130); Calcium 8.6 mg/dL (7.8-10.44); Carbon Dioxide 24 mmol/L (22-29); Chloride 106 mmol/L (98-107); Estimated GFR-MDRD Greater than 90; Glucose 101 mg/dL (70-105); Potassium 3.8 mmol/L (3.5-5.1); Sodium 139 mmol/L (136-145)
[2018-01-31 05:59] LABS: #Eosinphils 0.2 thou/uL (0.0-0.7); #Lymphocytes 2.3 thou/uL (1.20-3.40); #Monocytes 0.6 thou/uL (0.11-0.59); #Neutrophils 3.4 thou/uL (1.40-6.50); %Basophils 0.7 % (0.0-1.0); %Eosinophils 3.7 % (0.0-10.0); %Lymphocytes 35.2 % (21.0-51.0); %Monocytes 9.2 % (0.0-10.0); %Neutrophils 51.3 % (42.0-75.0); Hemoglobin 10.9 g/dL (12.0-16.0); Mean Corpuscular HGB CONC 31.8 g/dL (32.0-36.0); Mean Corpuscular Hemoglobin 31.2 pg (27.0-31.0); Mean Corpuscular Volume 98.2 fL (78.0-98.0); Mean Platelet Volume 6.7 fL (7.4-10.4); Platelet Count 127 thou/uL (130-400); RBC Distribution Width 15.8 % (11.5-14.5); Red Blood Cell (RBC) Count 3.48 mill/uL (4.20-5.40); White Blood Cell (WBC) Count 6.5 thou/uL (4.8-10.8)
[2018-01-31] MEDS ORDERED: Scopolamine 1.5 mg/72 hour Patch ONE (07:13)
[2018-01-31] MEDS ORDERED: Levofloxacin 500 mg/D5W 100 ml Premix Bag ONE (07:13)
[2018-01-31] MEDS: Valproate Sodium 1,000 MG in Sodium Chloride 0.9% 100 ML IVPB SCH ×2 (08:39→21:23)
[2018-01-31] MEDS: levETIRAcetam In NaCl (Iso-Os) 1,500 MG in Premix Bag 1 BAG IVPB SCH ×2 (09:46→21:22)
[2018-01-31] MEDS: Labetalol 100 MG/20 ML MDV SLOW IVP PRN ×2 (12:21→15:47)
--- NOTE | 2018-01-31 12:34 | PDOC.PN ---
- Subjective Encounter Start Date: 01/31/18 Encounter Start Time: 08:20 Subjective: awake, does not follow or communicate verbally -: no sob or in distress - Objective Resuscitation Status: Resuscitation Status DNR:Do Not Resuscitate MAR Reviewed: Yes Vital Signs & Weight: Vital Signs (12 hours) Temp Pulse Pulse Pulse Pulse Resp BP 01/31/18 11:57 97.3 F L 72 16 01/31/18 11:25 165/77 H 01/31/18 09:07 59 L 75 61 01/31/18 08:00 99.3 F 62 14 01/31/18 07:54 99.3 F 62 14 01/31/18 05:50 147/71 H 01/31/18 04:00 99.1 F 71 18 BP BP BP BP Pulse Ox 01/31/18 11:57 184/89 H 93 L 01/31/18 11:25 01/31/18 09:07 151/77 H 172/87 H 165/77 H 01/31/18 08:00 94 L 01/31/18 07:54 158/78 H 94 L 01/31/18 05:50 01/31/18 04:00 147/71 H 94 L Weight Admit Weight 103 lb 5 oz Weight 105 lb 8 oz I&O: 01/30/18 01/31/18 02/01/18 06:59 06:59 06:59 Intake Total 1780 600 Output Total 1 Balance 1780 600 -1 Result Diagrams: 01/31/18 05:02 01/31/18 05:02 Phys Exam - Physical Examination HEENT: PERRLA, sclera anicteric Neck: no JVD, supple Respiratory: no wheezing, no rales Cardiovascular: RRR, no significant murmur Gastrointestinal: soft, no distention, positive bowel sounds Musculoskeletal: no edema, pulses present Neurological: non-focal Dx/Plan (1) Breakthrough seizure Code(s): G40.919 - EPILEPSY, UNSP, INTRACTABLE, WITHOUT STATUS EPILEPTICUS Status: Acute (2) Chronic anemia Code(s): D64.9 - ANEMIA, UNSPECIFIED Status: Chronic (3) Encephalopathy acute Code(s): G93.40 - ENCEPHALOPATHY, UNSPECIFIED Status: Acute (4) Seizure disorder Code(s): G40.909 - EPILEPSY, UNSP, NOT INTRACTABLE, WITHOUT STATUS EPILEPTICUS Status: Chronic (5) Anxiety and depression Code(s): F41.9 - ANXIETY DISORDER, UNSPECIFIED; F32.9 - MAJOR DEPRESSIVE DISORDER, SINGLE EPISODE, UNSPECIFIED Status: Chronic (6) Bipolar 1 disorder Code(s): F31.9 - BIPOLAR DISORDER, UNSPECIFIED Status: Chronic (7) H/O: CVA (cerebrovascular accident) Code(s): Z86.73 - PRSNL HX OF TIA (TIA), AND CEREB INFRC W/O RESID DEFICITS Status: Chronic (8) HTN (hypertension) Code(s): I10 - ESSENTIAL (PRIMARY) HYPERTENSION Status: Chronic Qualifiers: Hypertension type: essential hypertension Qualified Code(s): I10 - Essential (primary) hypertension - Plan full liq diet per speech, if tolerating then will switch all iv to po -: still encephalopathic, is awake, doesnot follow verbal stimuli -: prognosis guarded, has underlying chronic changes in her brain with ventric -: ulomegaly and malacic changes -: ceftriaxone and clinda per ID adv * . On fosphenytoin, keppra and depacon iv iv hydration until able to swallow well clonidine tts and vasotec iv for now Will switch all above meds to po if tolerating well. Review of Systems - Medications/Allergies Allergies/Adverse Reactions: Allergies Allergy/AdvReac Type Severity Reaction Status Date / Time aspirin Allergy Intermediate Short of Verified 11/04/17 21:27 Breath meperidine HCl [From Demerol] Allergy Intermediate Swollen Verified 11/04/17 21: 27 Lips amoxicillin [Amoxicillin] Allergy Verified 11/04/17 21:27 levofloxacin [From Levaquin] Allergy Verified 01/25/18 14:38 Penicillins Allergy Verified 11/04/17 21:27 codeine AdvReac Mild Verified 11/04/17 21:27 Medications: Current Medications Acetaminophen (Tylenol) 650 mg [place] Q6H PRN PRN Reason: Headache/Fever or Pain Last Admin: 01/25/18 21:34 Dose: 650 mg Clonidine (Azcvpvje-Zja-4) 0.2 mg TD Q7DAYS [facility] Last Admin: 01/27/18 09:00 Dose: 0.2 mg Enalaprilat (Vasotec) 1.25 mg SLOW IVP Q6HR [facility] Last Admin: 01/31/18 11:25 Dose: 1.25 mg Hydralazine HCl (Apresoline) 5 mg SLOW IVP Q4H PRN PRN Reason: SBP>160 OR DBP>90 Last Admin: 01/28/18 21:17 Dose: 5 mg Levetiracetam 1,500 mg/ Device 100 mls @ 200 mls/hr IVPB BID [facility] Last Admin: 01/31/18 09:46 Dose: 100 mls Ceftriaxone Sodium 1 gm/ (Sodium Chloride) 100 mls @ 200 mls/hr IVPB Q24HR [facility] Last Admin: 01/30/18 17:35 Dose: 100 mls Clindamycin Phosphate/Dextrose (600 mg/ Device) 50 mls @ 100 mls/hr IVPB 0100, 0900,1700 [facility] Last Admin: 01/31/18 10:29 Dose: 50 mls Valproic Acid 1,000 mg/ Sodium (Chloride) 110 mls @ 100 mls/hr IVPB BID [facility] Last Admin: 01/31/18 08:39 Dose: 110 mls Fosphenytoin Sodium 300 mg/ (Sodium Chloride) 56 mls @ 112 mls/hr IVPB HS [facility] Last Admin: 01/30/18 20:50 Dose: 56 mls Potassium Chloride/Dextrose/Sod Cl (D5 1/2 Ns W/20 Meq Kcl) 1,000 mls @ 50 mls/ hr IV .Q20H [facility] Last Admin: 01/30/18 09:20 Dose: 1,000 mls Labetalol HCl (Normodyne) 10 mg SLOW IVP Q1H PRN PRN Reason: SBP>180 DBP>100 HOLD HR<60 Last Admin: 01/31/18 12:21 Dose: 10 mg Lorazepam (Ativan) 1 mg SLOW IVP Q4H PRN PRN Reason: Anxiety/Agitation Last Admin: 01/29/18 20:38 Dose: 1 mg Nitroglycerin (Nitro-Bid 2% Ointment) 0.5 inch TOP Q8HR [facility] Last Admin: 01/31/18 05:50 Dose: 0.5 inch Sodium Chloride (Flush - Normal Saline) 10 ml IVF Q12HR [facility] Last Admin: 01/31/18 08:39 Dose: 10 ml Sodium Chloride (Flush - Normal Saline) 10 ml IVF PRN PRN PRN Reason: Saline Flush
[2018-01-31] MEDS: cefTRIAXone\\ROCEPHIN 1 GM in Sodium Chloride 0.9% 100 ML IVPB SCH (17:29)
[2018-01-31] MEDS: D5 1/2 NS w/20 mEq KCL 1,000 ML IV SCH (17:30)
[2018-02-01] MEDS: Labetalol 100 MG/20 ML MDV SLOW IVP PRN (01:41)
[2018-02-01] MEDS: Clindamycin/D5W 600 MG in Premix Bag 1 BAG IVPB SCH (01:43)
[2018-02-01] MEDS: Enalaprilat Dihydrate 1.25 MG/ML VIAL SLOW IVP SCH (05:24)
[2018-02-01] MEDS: Nitroglycerin 2% Ointment 1 INCH/1 GM Packet TOP SCH (05:25)
[2018-02-01 05:40] LABS: Anion Gap 12 mmol/L (10-20); BUN (Urea Nitrogen) 5 mg/dL (7.0-18.7); Calc. Creatinine Clearance 97 mL/min (70-130); Calcium 8.9 mg/dL (7.8-10.44); Carbon Dioxide 24 mmol/L (22-29); Chloride 105 mmol/L (98-107); Estimated GFR-MDRD Greater than 90; Glucose 106 mg/dL (70-105); Potassium 3.9 mmol/L (3.5-5.1); Sodium 137 mmol/L (136-145)
--- NOTE | 2018-02-01 08:00 | RAD ---
SINGLE VIEW OF THE CHEST: COMPARISON: 01/24/18. HISTORY: Fall with chest pain. FINDINGS: Single view of the chest shows a normal sized cardiomediastinal silhouette. There is no evidence of c onsolidation, mass, or pleural effusion. There is a remote left clavicle fracture. IMPRESSION: No evidence of acute cardiopulmonary disease. POS: [facility]
[2018-02-01] MEDS: levETIRAcetam In NaCl (Iso-Os) 1,500 MG in Premix Bag 1 BAG IVPB SCH (08:52)
[2018-02-01] MEDS: Amlodipine 5 MG TAB PO SCH (08:53)
[2018-02-01] MEDS: Valproate Sodium 1,000 MG in Sodium Chloride 0.9% 100 ML IVPB SCH (08:53)
[2018-02-01] MEDS: Clindamycin 150 MG CAP PO SCH ×3 (08:53→17:19)
[2018-02-01] MEDS: Losartan 25 MG TAB PO SCH ×2 (08:53→09:45)
[2018-02-01] MEDS: Hydrochlorothiazide 25 MG TAB PO SCH ×2 (08:53→09:45)
[2018-02-01] MEDS: hydrALAZINE 20 MG/ML VIAL SLOW IVP PRN (09:09)
--- NOTE | 2018-02-01 09:56 | PDOC.PN ---
- Subjective Encounter Start Date: 02/01/18 Encounter Start Time: 08:00 Subjective: awake, not oriented or follows verbal stimuli -: has not been eating per staff - Objective Resuscitation Status: Resuscitation Status DNR:Do Not Resuscitate MAR Reviewed: Yes Vital Signs & Weight: Vital Signs (12 hours) Temp Pulse Resp BP BP Pulse Ox 02/01/18 09:09 65 02/01/18 08:53 65 02/01/18 07:56 98.2 F 65 16 187/84 H 94 L 02/01/18 05:24 198/108 H 02/01/18 04:38 97.9 F 78 18 198/108 H 92 L 02/01/18 01:44 90 196/90 H 01/31/18 23:52 98.4 F 82 20 192/100 H 92 L 01/31/18 23:16 190/93 H Weight Admit Weight 103 lb 5 oz Weight 107 lb I&O: 01/31/18 02/01/18 02/02/18 06:59 06:59 06:59 Intake Total 600 1150 1056 Output Total 1 Balance 600 1149 1056 Result Diagrams: 01/31/18 05:02 02/01/18 04:44 Phys Exam - Physical Examination HEENT: PERRLA, sclera anicteric Neck: no JVD, supple Respiratory: no wheezing, no rales Cardiovascular: RRR, no significant murmur Gastrointestinal: soft, non-tender, no distention, positive bowel sounds Musculoskeletal: no edema, pulses present Neurological: non-focal no purposefull movement of extre seen not oriented, lethargic Dx/Plan (1) Breakthrough seizure Code(s): G40.919 - EPILEPSY, UNSP, INTRACTABLE, WITHOUT STATUS EPILEPTICUS Status: Acute (2) Chronic anemia Code(s): D64.9 - ANEMIA, UNSPECIFIED Status: Chronic (3) Encephalopathy acute Code(s): G93.40 - ENCEPHALOPATHY, UNSPECIFIED Status: Acute (4) Seizure disorder Code(s): G40.909 - EPILEPSY, UNSP, NOT INTRACTABLE, WITHOUT STATUS EPILEPTICUS Status: Chronic (5) Anxiety and depression Code(s): F41.9 - ANXIETY DISORDER, UNSPECIFIED; F32.9 - MAJOR DEPRESSIVE DISORDER, SINGLE EPISODE, UNSPECIFIED Status: Chronic (6) Bipolar 1 disorder Code(s): F31.9 - BIPOLAR DISORDER, UNSPECIFIED Status: Chronic (7) H/O: CVA (cerebrovascular accident) Code(s): Z86.73 - PRSNL HX OF TIA (TIA), AND CEREB INFRC W/O RESID DEFICITS Status: Chronic (8) HTN (hypertension) Code(s): I10 - ESSENTIAL (PRIMARY) HYPERTENSION Status: Chronic Qualifiers: Hypertension type: essential hypertension Qualified Code(s): I10 - Essential (primary) hypertension - Plan main issue at present is oral intake -: will reduce dosing of her seizure meds, d/w over phone -: On a normal day communicates and follows verbal stimuli, does her -: -ADL and ambulates well per . Has no trouble swallowing as well. -: Has has prolonged encephalopathy now its 9 days roughly, she usually does * . some back and forth when she gets seizures but not this long per . Cxr reviewed, no infiltrate. Continue iv fluids, oral clinda x 2days, norvasc and hctz. Cozaar does not work well for her per . also confirms that she has been on 5 anti-epileptic meds at home. Prognosis guarded due to ongoing encephalopathy, poor oral intake and functional status at present. Review of Systems - Medications/Allergies Allergies/Adverse Reactions: Allergies Allergy/AdvReac Type Severity Reaction Status Date / Time aspirin Allergy Intermediate Short of Verified 11/04/17 21:27 Breath meperidine HCl [From Demerol] Allergy Intermediate Swollen Verified 11/04/17 21: 27 Lips amoxicillin [Amoxicillin] Allergy Verified 11/04/17 21:27 levofloxacin [From Levaquin] Allergy Verified 01/25/18 14:38 Penicillins Allergy Verified 11/04/17 21:27 codeine AdvReac Mild Verified 11/04/17 21:27 Medications: Current Medications Acetaminophen (Tylenol) 650 mg [place] Q6H PRN PRN Reason: Headache/Fever or Pain Last Admin: 01/25/18 21:34 Dose: 650 mg Amlodipine Besylate (Norvasc) 5 mg PO BID [facility] Last Admin: 02/01/18 08:53 Dose: 5 mg Clindamycin HCl (Cleocin) 300 mg PO Q8H [facility] Last Admin: 06/28/18 09:44 Dose: Not Given Clonidine (Dekyyeoo-Fkq-9) 0.2 mg TD Q7DAYS [facility] Last Admin: 01/27/18 09:00 Dose: 0.2 mg Hydralazine HCl (Apresoline) 5 mg SLOW IVP Q4H PRN PRN Reason: SBP>160 OR DBP>90 Last Admin: 02/01/18 09:09 Dose: 5 mg Hydrochlorothiazide (Hydrochlorothiazide) 25 mg PO DAILY [facility] Last Admin: 02/01/18 09:45 Dose: Not Given Levetiracetam 1,500 mg/ Device 100 mls @ 200 mls/hr IVPB BID [facility] Last Admin: 02/01/18 08:52 Dose: 100 mls Valproic Acid 1,000 mg/ Sodium (Chloride) 110 mls @ 100 mls/hr IVPB BID [facility] Last Admin: 02/01/18 08:53 Dose: 110 mls Fosphenytoin Sodium 300 mg/ (Sodium Chloride) 56 mls @ 112 mls/hr IVPB HS [facility] Last Admin: 01/31/18 21:22 Dose: 56 mls Potassium Chloride/Dextrose/Sod Cl (D5 1/2 Ns W/20 Meq Kcl) 1,000 mls @ 50 mls/ hr IV .Q20H [facility] Last Admin: 01/31/18 17:30 Dose: 1,000 mls Lorazepam (Ativan) 1 mg SLOW IVP Q4H PRN PRN Reason: Anxiety/Agitation Last Admin: 01/29/18 20:38 Dose: 1 mg Losartan Potassium (Cozaar) 50 mg PO DAILY [facility] Last Admin: 02/01/18 09:45 Dose: Not Given Sodium Chloride (Flush - Normal Saline) 10 ml IVF Q12HR [facility] Last Admin: 02/01/18 08:52 Dose: 10 ml Sodium Chloride (Flush - Normal Saline) 10 ml IVF PRN PRN PRN Reason: Saline Flush Last Admin: 02/01/18 05:26 Dose: 10 ml
[2018-02-01] MEDS ORDERED: Valproate Sodium 500 MG in Sodium Chloride 0.9% 100 ML IVPB SCH (11:00)
[2018-02-01] MEDS: D5 1/2 NS w/20 mEq KCL 1,000 ML IV SCH (17:45)
[2018-02-02 05:38] LABS: Anion Gap 13 mmol/L (10-20); BUN (Urea Nitrogen) 7 mg/dL (7.0-18.7); Calc. Creatinine Clearance 94 mL/min (70-130); Calcium 8.8 mg/dL (7.8-10.44); Carbon Dioxide 24 mmol/L (22-29); Chloride 104 mmol/L (98-107); Estimated GFR-MDRD Greater than 90; Glucose 104 mg/dL (70-105); Potassium 3.9 mmol/L (3.5-5.1); Sodium 137 mmol/L (136-145)
[2018-02-02] MEDS: Amlodipine 5 MG TAB PO SCH ×4 (07:30→20:46)
[2018-02-02] MEDS: levETIRAcetam In NaCl (Iso-Os) 1,000 MG in Premix Bag 1 BAG IVPB SCH ×3 (07:30→20:47)
[2018-02-02] MEDS: Clindamycin 150 MG CAP PO SCH ×3 (07:31→10:07)
[2018-02-02] MEDS: Valproate Sodium 500 MG in Sodium Chloride 0.9% 100 ML IVPB SCH ×3 (07:31→20:47)
[2018-02-02] MEDS: Hydrochlorothiazide 25 MG TAB PO SCH ×2 (08:57→10:06)
--- NOTE | 2018-02-02 11:13 | PDOC.PN ---
- Subjective Encounter Start Date: 02/02/18 Encounter Start Time: 11:00 Subjective: f/u for persistent encephalopathy and severe seizure disorder. Remains -: encephalopathic, minimal po intake and took some medication per nsg. -: No meaningful intake in 11 days. Last seizure 3+ days ago. - Objective Resuscitation Status: Resuscitation Status DNR:Do Not Resuscitate MAR Reviewed: Yes Vital Signs & Weight: Vital Signs (12 hours) Temp Pulse Resp BP Pulse Ox 02/02/18 10:06 93 02/02/18 08:56 93 02/02/18 07:30 93 02/02/18 07:06 98.3 F 78 12 119/59 L 93 L 02/02/18 05:52 93 163/81 H 02/02/18 04:02 99 F 86 20 171/82 H 95 02/02/18 02:00 90 165/80 H 02/02/18 00:08 98.5 F 81 20 200/109 H 96 Weight Admit Weight 103 lb 5 oz Weight 107 lb I&O: 02/01/18 02/02/18 02/03/18 06:59 06:59 06:59 Intake Total 1150 1656 20 Output Total 1 Balance 1149 1656 20 Result Diagrams: 01/31/18 05:02 02/02/18 04:41 Radiology Reviewed by me: Yes (PCXR - no acute process) EKG Reviewed by me: Yes (Tele - SR in 90's) Phys Exam - Physical Examination does not track to examiner, facial tremors HEENT: PERRLA, sclera anicteric, oral pharynx no lesions Neck: no nodes, no JVD, supple, full ROM Respiratory: no wheezing, no rales, no rhonchi, clear to auscultation bilateral S1, S2 Cardiovascular: RRR, no significant murmur, no rub, gallop Gastrointestinal: soft, non-tender, no distention, positive bowel sounds Musculoskeletal: no edema, pulses present does not follow commands lethargic, stares at ceiling Skin: no rash, normal turgor, cap refill <2 seconds Dx/Plan (1) Acute metabolic encephalopathy Code(s): G93.41 - METABOLIC ENCEPHALOPATHY Status: Acute Comment: Persistent and likely multifactorial, potential new baseline (2) Breakthrough seizure Code(s): G40.919 - EPILEPSY, UNSP, INTRACTABLE, WITHOUT STATUS EPILEPTICUS Status: Acute Comment: Continues on Keppra, Cerebryx and Depakote (3) UTI (urinary tract infection) Status: Acute Comment: E.fecalis treatment completed (4) Seizure disorder Code(s): G40.909 - EPILEPSY, UNSP, NOT INTRACTABLE, WITHOUT STATUS EPILEPTICUS Status: Chronic Comment: See above, likely end-stage process (5) Bipolar 1 disorder Code(s): F31.9 - BIPOLAR DISORDER, UNSPECIFIED Status: Chronic - Plan PT/OT, social work professor, speech therapy, DVT proph w/SCDs Remains encephalopathic and essentially unable to take meaningful -: po intake or nutrition for last 11 days, last seizure noted 3+ days ago. -: Will need to consider hospice if not pursuing nutritional support as -: encephalopathy likely not to improve without significant and consistent -: nutritional support * Hospice evaluation needed * Continue Keppra, Cerebryx and Valproic acid * Poor prognosis * D/C Clindamycin
[2018-02-02 14:28] VITALS: BMI 20.9
[2018-02-02] MEDS: D5 1/2 NS w/20 mEq KCL 1,000 ML IV SCH (17:36)
[2018-02-03] MEDS: hydrALAZINE 20 MG/ML VIAL SLOW IVP PRN (00:23)
[2018-02-03 05:40] LABS: Anion Gap 13 mmol/L (10-20); BUN (Urea Nitrogen) 6 mg/dL (7.0-18.7); Calc. Creatinine Clearance 90 mL/min (70-130); Calcium 9.1 mg/dL (7.8-10.44); Carbon Dioxide 24 mmol/L (22-29); Chloride 103 mmol/L (98-107); Estimated GFR-MDRD Greater than 90; Glucose 103 mg/dL (70-105); Potassium 3.8 mmol/L (3.5-5.1); Sodium 136 mmol/L (136-145)
[2018-02-03] MEDS: cloNIDine 0.2mg/24 Hour PATCH TD SCH (09:43)
[2018-02-03] MEDS: Hydrochlorothiazide 25 MG TAB PO SCH (09:52)
[2018-02-03] MEDS: Amlodipine 5 MG TAB PO SCH (09:52)
[2018-02-03] MEDS: Valproate Sodium 250 MG in Sodium Chloride 0.9% 100 ML IVPB SCH ×2 (10:41→22:30)
--- NOTE | 2018-02-03 11:48 | PDOC.PN ---
- Subjective Encounter Start Date: 02/03/18 Encounter Start Time: 08:25 Subjective: awakens to touch, not oriented - Objective Resuscitation Status: Resuscitation Status DNR:Do Not Resuscitate MAR Reviewed: Yes Vital Signs & Weight: Vital Signs (12 hours) Temp Pulse Resp BP BP Pulse Ox 02/03/18 11:37 98.1 F 77 14 153/81 H 97 02/03/18 09:52 78 112/63 02/03/18 08:35 98.7 F 78 16 93 L 02/03/18 07:47 98.7 F 78 16 112/63 93 L 02/03/18 04:00 98.7 F 85 18 105/60 96 02/03/18 02:10 74 139/80 02/03/18 00:23 80 170/84 H 02/03/18 00:00 97.6 F 76 18 170/84 H 95 Weight Admit Weight 103 lb 5 oz Weight 107 lb I&O: 02/02/18 02/03/18 02/04/18 06:59 06:59 06:59 Intake Total 1656 1870 Balance 1656 1870 Result Diagrams: 01/31/18 05:02 02/03/18 04:57 Phys Exam - Physical Examination HEENT: PERRLA, sclera anicteric Neck: no JVD, supple Respiratory: no wheezing, no rales Cardiovascular: RRR, no significant murmur Gastrointestinal: soft, non-tender, positive bowel sounds Musculoskeletal: no edema, pulses present Neurological: non-focal Dx/Plan (1) Breakthrough seizure Code(s): G40.919 - EPILEPSY, UNSP, INTRACTABLE, WITHOUT STATUS EPILEPTICUS Status: Acute Comment: Continue on Keppra, Cerebryx and Depakote (2) Chronic anemia Code(s): D64.9 - ANEMIA, UNSPECIFIED Status: Chronic (3) Encephalopathy acute Code(s): G93.40 - ENCEPHALOPATHY, UNSPECIFIED Status: Acute (4) Seizure disorder Code(s): G40.909 - EPILEPSY, UNSP, NOT INTRACTABLE, WITHOUT STATUS EPILEPTICUS Status: Chronic (5) Anxiety and depression Code(s): F41.9 - ANXIETY DISORDER, UNSPECIFIED; F32.9 - MAJOR DEPRESSIVE DISORDER, SINGLE EPISODE, UNSPECIFIED Status: Chronic (6) Bipolar 1 disorder Code(s): F31.9 - BIPOLAR DISORDER, UNSPECIFIED Status: Chronic (7) H/O: CVA (cerebrovascular accident) Code(s): Z86.73 - PRSNL HX OF TIA (TIA), AND CEREB INFRC W/O RESID DEFICITS Status: Chronic (8) HTN (hypertension) Code(s): I10 - ESSENTIAL (PRIMARY) HYPERTENSION Status: Chronic Qualifiers: Hypertension type: essential hypertension Qualified Code(s): I10 - Essential (primary) hypertension - Plan still encephalopathic, poor oral intake -: no seizures after reducing her antiepileptic dosing on 02/01/18. -: Will reduced further the doses of keppra and depakote to see if it makes an -: -y change in her mentation. -: Poor prognosis. Encourage po intake, aspiration precaution * . Review of Systems - Medications/Allergies Allergies/Adverse Reactions: Allergies Allergy/AdvReac Type Severity Reaction Status Date / Time aspirin Allergy Intermediate Short of Verified 11/04/17 21:27 Breath meperidine HCl [From Demerol] Allergy Intermediate Swollen Verified 11/04/17 21: 27 Lips amoxicillin [Amoxicillin] Allergy Verified 11/04/17 21:27 levofloxacin [From Levaquin] Allergy Verified 01/25/18 14:38 Penicillins Allergy Verified 11/04/17 21:27 codeine AdvReac Mild Verified 11/04/17 21:27 Medications: Current Medications Acetaminophen (Tylenol) 650 mg MS Q6H PRN PRN Reason: Headache/Fever or Pain Last Admin: 01/25/18 21:34 Dose: 650 mg Amlodipine Besylate (Norvasc) 5 mg PO BID [facility] Last Admin: 02/03/18 09:52 Dose: Not Given Clonidine (Qzlhernw-Unu-3) 0.2 mg TD Q7DAYS [facility] Last Admin: 02/03/18 09:43 Dose: 0.2 mg Hydralazine HCl (Apresoline) 5 mg SLOW IVP Q4H PRN PRN Reason: SBP>160 OR DBP>90 Last Admin: 02/03/18 00:23 Dose: 5 mg Hydrochlorothiazide (Hydrochlorothiazide) 25 mg PO DAILY [facility] Last Admin: 02/03/18 09:52 Dose: Not Given Fosphenytoin Sodium 300 mg/ (Sodium Chloride) 56 mls @ 112 mls/hr IVPB HS [facility] Last Admin: 02/02/18 20:47 Dose: 56 mls Potassium Chloride/Dextrose/Sod Cl (D5 1/2 Ns W/20 Meq Kcl) 1,000 mls @ 50 mls/ hr IV .Q20H [facility] Last Admin: 02/02/18 17:36 Dose: 1,000 mls Levetiracetam 500 mg/ Device 100 mls @ 200 mls/hr IVPB BID [facility] Last Admin: 02/03/18 09:35 Dose: 100 mls Valproic Acid 250 mg/ Sodium (Chloride) 102.5 mls @ 100 mls/hr IVPB Q12H [facility] PRN Reason: Protocol Last Admin: 02/03/18 10:41 Dose: 102.5 mls Sodium Chloride (Flush - Normal Saline) 10 ml IVF Q12HR [facility] Last Admin: 02/03/18 09:52 Dose: Not Given Sodium Chloride (Flush - Normal Saline) 10 ml IVF PRN PRN PRN Reason: Saline Flush Last Admin: 02/02/18 20:48 Dose: 10 ml
[2018-02-03] MEDS: D5 1/2 NS w/20 mEq KCL 1,000 ML IV SCH ×2 (13:54→16:21)
[2018-02-04] MEDS: Amlodipine 5 MG TAB PO SCH ×2 (04:52→08:35)
[2018-02-04 05:40] LABS: Anion Gap 11 mmol/L (10-20); BUN (Urea Nitrogen) 8 mg/dL (7.0-18.7); Calc. Creatinine Clearance 99 mL/min (70-130); Calcium 8.9 mg/dL (7.8-10.44); Carbon Dioxide 23 mmol/L (22-29); Chloride 106 mmol/L (98-107); Estimated GFR-MDRD Greater than 90; Glucose 95 mg/dL (70-105); Sodium 136 mmol/L (136-145)
[2018-02-04] MEDS: Hydrochlorothiazide 25 MG TAB PO SCH (08:35)
[2018-02-04] MEDS: Valproate Sodium 250 MG in Sodium Chloride 0.9% 100 ML IVPB SCH (09:59)
--- NOTE | 2018-02-04 13:59 | PDOC.PN ---
- Subjective Encounter Start Date: 02/04/18 Encounter Start Time: 13:58 Subjective: remians non communicative. -: no seizures so far despite reduction in dose -: not able to take anything PO - Objective Resuscitation Status: Resuscitation Status DNR:Do Not Resuscitate MAR Reviewed: Yes Vital Signs & Weight: Vital Signs (12 hours) Temp Pulse Pulse Pulse Resp BP BP 02/04/18 11:57 98 F 58 L 16 02/04/18 10:47 59 L 61 173/75 H 156/81 H 02/04/18 08:35 67 02/04/18 08:00 98 F 58 L 16 02/04/18 04:52 63 02/04/18 04:00 97.5 F L 63 18 BP Pulse Ox 02/04/18 11:57 153/73 H 98 02/04/18 10:47 02/04/18 08:35 02/04/18 08:00 146/79 H 97 02/04/18 04:52 02/04/18 04:00 134/65 97 Weight Admit Weight 103 lb 5 oz Weight 107 lb I&O: 02/03/18 02/04/18 02/05/18 06:59 06:59 06:59 Intake Total 1870 1513 Balance 1870 1513 Result Diagrams: 01/31/18 05:02 02/04/18 04:51 Phys Exam - Physical Examination Constitutional: NAD HEENT: PERRLA, moist MMs, sclera anicteric, oral pharynx no lesions Neck: no nodes, no JVD, supple, full ROM Respiratory: no wheezing, no rales, no rhonchi, clear to auscultation bilateral Cardiovascular: RRR, no significant murmur, no rub Gastrointestinal: soft, non-tender, no distention, positive bowel sounds Musculoskeletal: no edema, pulses present Neurological: non-focal, normal sensation, moves all 4 limbs Psychiatric: normal affect, A&O x 3 Skin: no rash Dx/Plan (1) Acute metabolic encephalopathy Code(s): G93.41 - METABOLIC ENCEPHALOPATHY Status: Acute Comment: Persistent and likely multifactorial, potential new baseline (2) Breakthrough seizure Code(s): G40.919 - EPILEPSY, UNSP, INTRACTABLE, WITHOUT STATUS EPILEPTICUS Status: Acute Comment: Continue on Keppra, Cerebryx and Depakote (3) UTI (urinary tract infection) Status: Acute Comment: E.fecalis treatment completed (4) Hypokalemia Code(s): E87.6 - HYPOKALEMIA Status: Resolved Comment: on D5 1/2 NS w KCl (5) Hypertensive urgency Code(s): I16.0 - HYPERTENSIVE URGENCY Status: Resolved Comment: PO meds on hold.Cont IV vasotec,Clonidine patch.nitro paste added yesterday.better controlled (6) Seizure disorder Code(s): G40.909 - EPILEPSY, UNSP, NOT INTRACTABLE, WITHOUT STATUS EPILEPTICUS Status: Chronic (7) Bipolar 1 disorder Code(s): F31.9 - BIPOLAR DISORDER, UNSPECIFIED Status: Chronic (8) H/O: CVA (cerebrovascular accident) Code(s): Z86.73 - PRSNL HX OF TIA (TIA), AND CEREB INFRC W/O RESID DEFICITS Status: Chronic (9) HTN (hypertension) Code(s): I10 - ESSENTIAL (PRIMARY) HYPERTENSION Status: Chronic Qualifiers: Hypertension type: essential hypertension Qualified Code(s): I10 - Essential (primary) hypertension (10) Vascular dementia Code(s): F01.50 - VASCULAR DEMENTIA WITHOUT BEHAVIORAL DISTURBANCE Status: Chronic Qualifiers: Dementia behavioral disturbance: with behavioral disturbance Qualified Code (s): F01.51 - Vascular dementia with behavioral disturbance (11) Hyponatremia Code(s): E87.1 - HYPO-OSMOLALITY AND HYPONATREMIA Status: Resolved (12) Sepsis Code(s): A41.9 - SEPSIS, UNSPECIFIED ORGANISM Status: Resolved - Plan DVT proph w/SCDs remains encephalopathic. no Po intake for more than 1 days -: MPOA does not want PEG. -: family meeting tomorrow to transition to Inpatient hospice -: add TD Nitro as BP still high -: all seizure meds are IV for now. cont IVF * . Review of Systems - Review of Systems Other: unobtainable due to encephalopathy - Medications/Allergies Allergies/Adverse Reactions: Allergies Allergy/AdvReac Type Severity Reaction Status Date / Time aspirin Allergy Intermediate Short of Verified 11/04/17 21:27 Breath meperidine HCl [From Demerol] Allergy Intermediate Swollen Verified 11/04/17 21: 27 Lips amoxicillin [Amoxicillin] Allergy Verified 11/04/17 21:27 levofloxacin [From Levaquin] Allergy Verified 01/25/18 14:38 Penicillins Allergy Verified 11/04/17 21:27 codeine AdvReac Mild Verified 11/04/17 21:27 Medications: Current Medications Acetaminophen (Tylenol) 650 mg MS Q6H PRN PRN Reason: Headache/Fever or Pain Last Admin: 01/25/18 21:34 Dose: 650 mg Amlodipine Besylate (Norvasc) 5 mg PO BID [facility] Last Admin: 02/04/18 08:35 Dose: Not Given Clonidine (Dxfxacwd-Ffn-9) 0.2 mg TD Q7DAYS [facility] Last Admin: 02/03/18 09:43 Dose: 0.2 mg Hydralazine HCl (Apresoline) 5 mg SLOW IVP Q4H PRN PRN Reason: SBP>160 OR DBP>90 Last Admin: 02/03/18 00:23 Dose: 5 mg Hydrochlorothiazide (Hydrochlorothiazide) 25 mg PO DAILY [facility] Last Admin: 02/04/18 08:35 Dose: Not Given Fosphenytoin Sodium 300 mg/ (Sodium Chloride) 56 mls @ 112 mls/hr IVPB HS [facility] Last Admin: 02/03/18 22:28 Dose: 56 mls Potassium Chloride/Dextrose/Sod Cl (D5 1/2 Ns W/20 Meq Kcl) 1,000 mls @ 50 mls/ hr IV .Q20H [facility] Last Admin: 02/03/18 16:21 Dose: 1,000 mls Levetiracetam 500 mg/ Device 100 mls @ 200 mls/hr IVPB BID [facility] Last Admin: 02/04/18 08:33 Dose: 100 mls Valproic Acid 250 mg/ Sodium (Chloride) 102.5 mls @ 100 mls/hr IVPB Q12H [facility] PRN Reason: Protocol Last Admin: 02/04/18 09:59 Dose: 102.5 mls Sodium Chloride (Flush - Normal Saline) 10 ml IVF Q12HR [facility] Last Admin: 02/04/18 08:34 Dose: 10 ml Sodium Chloride (Flush - Normal Saline) 10 ml IVF PRN PRN PRN Reason: Saline Flush Last Admin: 02/02/18 20:48 Dose: 10 ml
[2018-02-04] MEDS: Nitroglycerin 2% Ointment 1 INCH/1 GM Packet TOP SCH ×2 (14:28→21:31)
[2018-02-04] MEDS ORDERED: levETIRAcetam In NaCl (Iso-Os) 1,000 MG in Premix Bag 1 BAG IVPB SCH (16:30)
[2018-02-04] MEDS: Valproate Sodium 500 MG in Sodium Chloride 0.9% 100 ML IVPB SCH (17:52)
[2018-02-04] MEDS: levETIRAcetam In NaCl (Iso-Os) 1,500 MG in Premix Bag 1 BAG IVPB SCH (21:23)
[2018-02-05] MEDS: D5 1/2 NS w/20 mEq KCL 1,000 ML IV SCH (04:48)
[2018-02-05] MEDS: Amlodipine 5 MG TAB PO SCH ×3 (05:14→09:55)
[2018-02-05 05:21] LABS: Anion Gap 13 mmol/L (10-20); BUN (Urea Nitrogen) 8 mg/dL (7.0-18.7); Calc. Creatinine Clearance 97 mL/min (70-130); Calcium 9.1 mg/dL (7.8-10.44); Carbon Dioxide 25 mmol/L (22-29); Chloride 104 mmol/L (98-107); Estimated GFR-MDRD Greater than 90; Glucose 96 mg/dL (70-105); Potassium 4.1 mmol/L (3.5-5.1); Sodium 138 mmol/L (136-145)
[2018-02-05] MEDS: Valproate Sodium 500 MG in Sodium Chloride 0.9% 100 ML IVPB SCH (05:25)
[2018-02-05] MEDS: Nitroglycerin 2% Ointment 1 INCH/1 GM Packet TOP SCH ×2 (05:31→14:03)
[2018-02-05] MEDS: levETIRAcetam In NaCl (Iso-Os) 1,500 MG in Premix Bag 1 BAG IVPB SCH (08:31)
[2018-02-05] MEDS: Hydrochlorothiazide 25 MG TAB PO SCH ×2 (08:32→09:55)
[2018-02-05] MEDS: hydrALAZINE 20 MG/ML VIAL SLOW IVP PRN (11:48)
--- NOTE | 2018-02-05 13:13 | PDOC.PN ---
- Subjective Encounter Start Date: 02/05/18 Encounter Start Time: 13:11 Subjective: remains about the same.discussed w RN -: difficult to feed as would not open mouth -: seizure last evening,none since then - Objective Resuscitation Status: Resuscitation Status DNR:Do Not Resuscitate MAR Reviewed: Yes Vital Signs & Weight: Vital Signs (12 hours) Temp Pulse Pulse Pulse Resp BP BP 02/05/18 11:48 57 L 137/72 02/05/18 11:41 97.4 F L 65 18 02/05/18 09:55 57 L 137/72 02/05/18 08:58 57 L 57 L 176/85 H 02/05/18 08:00 97.3 F L 57 L 16 02/05/18 07:39 97.3 F L 57 L 16 02/05/18 05:14 61 02/05/18 03:37 97.3 F L 61 20 BP BP Pulse Ox 02/05/18 11:48 02/05/18 11:41 205/96 H 97 02/05/18 09:55 02/05/18 08:58 162/82 H 02/05/18 08:00 98 02/05/18 07:39 137/72 98 02/05/18 05:14 02/05/18 03:37 148/80 H 96 Weight Admit Weight 103 lb 5 oz Weight 107 lb I&O: 02/04/18 02/05/18 02/06/18 06:59 06:59 06:59 Intake Total 1513 1606 50 Balance 1513 1606 50 Result Diagrams: 01/31/18 05:02 02/05/18 04:43 Additional Labs: labs reviewed Phys Exam - Physical Examination Constitutional: NAD opens eyes and mumbles but does not follow commands HEENT: PERRLA, moist MMs, sclera anicteric, oral pharynx no lesions Neck: no nodes, no JVD, supple, full ROM Respiratory: no wheezing, no rales, no rhonchi, clear to auscultation bilateral Cardiovascular: RRR, no significant murmur, no rub Gastrointestinal: soft, non-tender, no distention, positive bowel sounds Musculoskeletal: no edema, pulses present Neurological: non-focal, normal sensation, moves all 4 limbs Psychiatric: normal affect, A&O x 3 Skin: no rash Dx/Plan (1) Acute metabolic encephalopathy Code(s): G93.41 - METABOLIC ENCEPHALOPATHY Status: Acute Comment: Persistent and likely multifactorial, potential new baseline (2) Breakthrough seizure Code(s): G40.919 - EPILEPSY, UNSP, INTRACTABLE, WITHOUT STATUS EPILEPTICUS Status: Acute Comment: Continue on Keppra, Cerebryx and Depakote (3) UTI (urinary tract infection) Status: Acute Comment: E.fecalis treatment completed (4) Hypokalemia Code(s): E87.6 - HYPOKALEMIA Status: Resolved Comment: on D5 1/2 NS w KCl (5) Hypertensive urgency Code(s): I16.0 - HYPERTENSIVE URGENCY Status: Resolved Comment: PO meds on hold.Cont IV vasotec,Clonidine patch.nitro paste added yesterday.better controlled (6) Seizure disorder Code(s): G40.909 - EPILEPSY, UNSP, NOT INTRACTABLE, WITHOUT STATUS EPILEPTICUS Status: Chronic (7) Bipolar 1 disorder Code(s): F31.9 - BIPOLAR DISORDER, UNSPECIFIED Status: Chronic (8) H/O: CVA (cerebrovascular accident) Code(s): Z86.73 - PRSNL HX OF TIA (TIA), AND CEREB INFRC W/O RESID DEFICITS Status: Chronic (9) HTN (hypertension) Code(s): I10 - ESSENTIAL (PRIMARY) HYPERTENSION Status: Chronic Qualifiers: Hypertension type: essential hypertension Qualified Code(s): I10 - Essential (primary) hypertension (10) Vascular dementia Code(s): F01.50 - VASCULAR DEMENTIA WITHOUT BEHAVIORAL DISTURBANCE Status: Chronic Qualifiers: Dementia behavioral disturbance: with behavioral disturbance Qualified Code (s): F01.51 - Vascular dementia with behavioral disturbance (11) Hyponatremia Code(s): E87.1 - HYPO-OSMOLALITY AND HYPONATREMIA Status: Resolved (12) Sepsis Code(s): A41.9 - SEPSIS, UNSPECIFIED ORGANISM Status: Resolved - Plan out of bed/ambulate, DVT proph w/SCDs cont anti-seizures meds. dose increased back again yesterday as lower doses -: were in effective -: cont to try to feed pureed foods w aspiration risk -: will try to chnage meds to PO liquids -: will discuss w MPOA again today for possible hospice option * .BP better w addition of TD Nitro.monitor Review of Systems - Review of Systems Other: unobtainable due to encephalopathy - Medications/Allergies Allergies/Adverse Reactions: Allergies Allergy/AdvReac Type Severity Reaction Status Date / Time aspirin Allergy Intermediate Short of Verified 11/04/17 21:27 Breath meperidine HCl [From Demerol] Allergy Intermediate Swollen Verified 11/04/17 21: 27 Lips amoxicillin [Amoxicillin] Allergy Verified 11/04/17 21:27 levofloxacin [From Levaquin] Allergy Verified 01/25/18 14:38 Penicillins Allergy Verified 11/04/17 21:27 codeine AdvReac Mild Verified 11/04/17 21:27 Medications: Current Medications Acetaminophen (Tylenol) [address] Q6H PRN PRN Reason: Headache/Fever or Pain Last Admin: 01/25/18 21:34 Dose: 650 mg Amlodipine Besylate (Norvasc) 5 mg PO BID [facility] Last Admin: 02/05/18 09:55 Dose: 5 mg Clonidine (Jodomjdw-Imr-5) 0.2 mg TD Q7DAYS [facility] Last Admin: 02/03/18 09:43 Dose: 0.2 mg Hydralazine HCl (Apresoline) 5 mg SLOW IVP Q4H PRN PRN Reason: SBP>160 OR DBP>90 Last Admin: 02/05/18 11:48 Dose: 5 mg Hydrochlorothiazide (Hydrochlorothiazide) 25 mg PO DAILY [facility] Last Admin: 02/05/18 09:55 Dose: 25 mg Fosphenytoin Sodium 300 mg/ (Sodium Chloride) 56 mls @ 112 mls/hr IVPB HS [facility] Last Admin: 02/04/18 21:28 Dose: 56 mls Potassium Chloride/Dextrose/Sod Cl (D5 1/2 Ns W/20 Meq Kcl) 1,000 mls @ 50 mls/ hr IV .Q20H [facility] Last Admin: 02/05/18 04:48 Dose: 1,000 mls Levetiracetam 1,500 mg/ Device 100 mls @ 200 mls/hr IVPB BID [facility] Last Admin: 02/05/18 08:31 Dose: 100 mls Valproic Acid 500 mg/ Sodium (Chloride) 105 mls @ 100 mls/hr IVPB 0600,1800 [facility] Last Admin: 02/05/18 05:25 Dose: 105 mls Nitroglycerin (Nitro-Bid 2% Ointment) 0.5 inch TOP Q8HR [facility] Last Admin: 02/05/18 05:31 Dose: 0.5 inch Sodium Chloride (Flush - Normal Saline) 10 ml IVF Q12HR [facility] Last Admin: 02/05/18 08:33 Dose: 10 ml Sodium Chloride (Flush - Normal Saline) 10 ml IVF PRN PRN PRN Reason: Saline Flush Last Admin: 02/04/18 21:29 Dose: 10 ml
[2018-02-05 15:41] VITALS: BP 192/97; TEMP 97.8
[2018-02-05] MEDS ORDERED: Valproate Sodium 250 mg/5 ml UD Cup PO SCH ×2 (16:45→21:00)
[2018-02-05] MEDS ORDERED: levETIRAcetam 100 mg/ml Oral Solution PO SCH (21:00)
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
== END 2018-02-05 18:40 | disposition hospice, inpatient (51) | DRG 871 ==
LOC: ERS 18:29 → 2SE 23:44 → OBSVTOIN 23:44
PROVIDERS: ADMIT Family Medicine; ATTEND Family Medicine
DX: A41.9 Sepsis, unspecified organism (principal); G92 Toxic encephalopathy; G40.201 Localization-related (focal) (partial) symptomatic epilepsy and epileptic syndromes with complex partial seizures, not intractable, with status epilepticus; N39.0 Urinary tract infection, site not specified; G96.0 Cerebrospinal fluid leak; E87.1 Hypo-osmolality and hyponatremia; G40.219 Localization-related (focal) (partial) symptomatic epilepsy and epileptic syndromes with complex partial seizures, intractable, without status epilepticus; E86.0 Dehydration; Z74.01 Bed confinement status; I10 Essential (primary) hypertension; F01.50 Vascular dementia, unspecified severity, without behavioral disturbance, psychotic disturbance, mood disturbance, and anxiety; Z66 Do not resuscitate; F31.9 Bipolar disorder, unspecified; E87.6 Hypokalemia; I16.0 Hypertensive urgency; I69.319 Unspecified symptoms and signs involving cognitive functions following cerebral infarction; B95.2 Enterococcus as the cause of diseases classified elsewhere; Z91.81 History of falling; Z88.6 Allergy status to analgesic agent; Z88.1 Allergy status to other antibiotic agents; Z88.5 Allergy status to narcotic agent; Z88.0 Allergy status to penicillin; Z79.899 Other long term (current) drug therapy
CPT/HCPCS: 36415; 36416; 51701; 70450; 70551; 71045; 80048; 80053; 80164; 80185; 80306; 81003; 81015; 82553; 83735; 84484; 85025; 87040; 87086; 87186; 93005; 95816; 95819; 95953; 96365; 96374; A4216; A4353; G8978-GP-CM; G8978-GP-CN; G8979-GP-CL; G8987-GO-CN; G8988-GO-CN; G8989-GO-CN; G8996-GN-CL; G8996-GN-CM; G8996-GN-CN; G8997-GN-CJ; G8997-GN-CL; J0360; J0696; J1953; J1956; J2060; J3370; J3480; J3490; J7050; Q2009